=== PATIENT | female | born 1990 | race Caucasian/White ===

== ENCOUNTER 2023-04-04 20:57 | Outpatient (REF) | payer OTHER, SELFPAY ==
[2023-04-09 15:09] LABS: Age Gdln ACOG Testing Note (.); HPV Aptima Negative (Negative); IGP, Aptima HPV, rfx 16/18,45 Note (.)
== END 2023-04-04 20:58 | disposition home or self-care (01) ==
LOC: LAB 20:57
PROVIDERS: PCP Family Medicine; Visit Provider Obstetrics & Gynecology
DX: Z01.419 Encounter for gynecological examination (general) (routine) without abnormal findings (principal)
CPT/HCPCS: 87624; G0145

== ENCOUNTER 2023-10-22 22:15 | Emergency (ER) | payer OTHER, SELFPAY ==
--- OUTSIDE RECORDS SUMMARY | 2023-10-22 22:43 | XMS_ITS | CCD ---
Author Organization [facility] Care Team Providers Care Stripper Opaquer Name Role Phone PHYSICIAN, DEFAULT Unavailable Unavailable PHYSICIAN, DEFAULT Unavailable Unavailable MD Lewis CAMACHO Attending Unavailable MD Lewis CAMACHO Attending Unavailable MD Lewis CAMACHO Attending Unavailable MD Lewis CAMACHO Attending Unavailable KARASIK, DR SALDAÑA Procedure Practitioner Unava ilable ADRIANNA, DR SANTIAGO Consulting Unavailable NADERER, DR STANLEY A Primary Care Unavailable KARASIK, DR SALDAÑA Attending Unavailable KARASIK, DR SALDAÑA Admitting Unavailable KARASIK, DR SALDAÑA Consulting Unavailable MADISON, DR BARAKAT Consulting Unavailable CAMACHO, DR SANTIAGO Procedure Practitioner CAMILO [place] Consulting Unavailable CHRISTINE, KORTNEY Consulting Unavailable ADRIANNA, DR SANTIAGO Attending Unavailable CAMACHO, DR SANTIAGO Admitting Unavailable NADERER, DR STANLEY A Primary Care Unavailable KARASIK, DR SALDAÑA Consulting Unavailable NADERER, DR STANLEY A Primary Care Unavailable KARASIK, DR SALDAÑA Attending Unavailable KARASIK, DR SALDAÑA Admitting Unavailable CHRISTINE, KORTNEY Consulting Unavailable CAMACHO, DR SANTIAGO Consulting Unavailable NADERER, DR STANLEY A Primary Care Unavailable CAMACHO, DR SANTIAGO Attending Unavailable CAMACHO, DR SANTIAGO Admitting Unavailable AGUBOSIMTOÑO Consulting Unavailable DORKOSKIESTIVEN Consulting Unavailable NADERER, DR STANLEY A Primary Care Unavailable CAMACHO, DR SANTIAGO Attending Unavailable CAMACHO, DR SANTIAGO Admitting Unavailable KARASIK, DR SALDAÑA Consulting Unavailable NADERER, DR STANLEY A Primary Care Unavailable KARASIK, DR SALDAÑA Attending Unavailable KARASIK, DR SALDAÑA Admitting Unavailable NADERER, DR STANLEY A Primary Care Unavailable KARASIK, DR SALDAÑA Attending Unavailable KARASIK, DR SALDAÑA Admitting Unavailable NADERER, DR STANLEY A Primary Care Unavailable KARASIK, DR SALDAÑA Attending Unavailable KARASIK, DR SALDAÑA Admitting Unavailable ADRIANNA, DR SANTIAGO Consulting Unavailable NADERER, DR LIZETH Cordon Primary Care Unavailable CAMACHO, DR SANTIAGO Attending Unavailable CAMACHO, DR SANTIAGO Admitting Unavailable CAMACHO, DR SANTIAGO Consulting Unavailable NADERER, DR LIZETH Cordon Primary Care Unavailable CAMACHO, DR SANTIAGO Attending Unavailable CAMACHO, DR SANTIAGO Admitting Unavailable Zieber, DR Gill Consulting Unavailable Zieber, DR Gill Consulting Unavailable NADERER, DR LIZETH Cordon Primary Care Unavailable NADERER, DR LIZETH Cordon Attending Unavailable NADERER, DR LIZETH Cordon Admitting Unavailable NADERER, DR LIZETH Cordon Consulting Unavailable MISC, DR DEVRIES Consulting Unavailable NADERER, DR LIZETH Cordon Primary Care Unavailable MISC, DR DEVRIES Attending Unavailable MISC, DR DEVRIES Admitting Unavailable KARASIBryce, DR SALDAÑA Consulting Unavailable NADERER, DR LIZETH Cordon Primary Care Unavailable KARASIK, DR SALDAÑA Attending Unavailable KARASIK, DR SALDAÑA Admitting Unavailable MADISON, ROSHNI Attending Unavailable NADERER, LIZETH Attending Unavailable NADERER, LIZETH Attending Unavailable Allergies Allergy Classification Reported Allergen(s) Allergy Type Date of Onset Reaction(s) Facility (1 source) No Known Medication Allergies; Translations: [No Known Medication Allergies] Propensity to adverse reactions (disorder) [facility] Repository Problems Active Problems Problem Classification Problem Date Documented Da te Episodic/Chronic Abdominal pain (9 sources) Unspecified abdominal pain; Translations: [Pelvic and perineal pain] Onset: 02-14-2021 Episodic Anxiety disorders (1 source) Anxiety disorder, unspecified; Translations: [ANXIETY DISORDER UNSPECIFIED] Onset: 05-02-2021 Chronic Esophageal disorders (1 source) Gastro-esophageal reflux disease without esophagitis; Translations: [GERD WITHOUT ESOPHAGITIS] Onset: 05-02-2021 Chronic Genitourinary congenital anomalies (1 source) Congenital occlusion of ureter, unspecified; Translations: [CONGENITAL OCCLUSION URETER UNS] Onset: 05-02-2021 Chronic Genitourinary symptoms and ill-defined conditions (1 source) Encounter for fitting and adjustment of urinary device; Translations: [END FITTING AND ADJUST URINARY DEVICE] Onset: 06-07-2021 Chronic Mood disorders (1 source) Mood disorders; Translations: [DEPRESSION UNSPECIFIED] Onset: 05-02-2021 Other aftercare (1 source) Other snf (current) drug therapy; Translations: [OTH MCC CURRENT DRUG THERAPY] Onset: 12-16-2021 Episodic Other connective tissue disease (4 sources) Pain in right finger(s); Translations: [PAIN IN RIGHT FINGERS] Onset: 12-15-2021 Episodic Other diseases of kidney and ureters (5 sources) Crossing 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; Translations: [CROSSING VES STRICT URETER W/O HN] Onset: 06-02-2021 Episodic Other female genital disorders (4 sources) Unspecified dyspareunia; Translations: [UNSPECIFIED DYSPAREUNIA] Onset: 04-04-2021 Chronic Other nervous system disorders (1 source) Other chronic pain; Translations: [OTHER CHRONIC PAIN] Onset: 05-02-2021 Chronic Other nutritional; endocrine; and metabolic disorders (1 source) Body mass index (BMI) 40.0-44.9, adult; Translations: [BODY MASS INDEX BMI 40.0-44.9 ADULT] Onset: 05-02-2021 Chronic Other nutritional; endocrine; and metabolic disorders (1 source) Morbid (severe) obesity due to excess calories; Translations: [MORBID SEVERE OBES D/T EXCESS NITO] Onset: 05-02-2021 Chronic Unclassified (1 source) CONTACT W/AND (SUSP) EXPOS COVID-19; Translations: [CONTACT W/AND (SUSP) EXPOS COVID-19] Onset: 05-31-2021 Unclassified (1 source) PERSONAL HISTORY OF COVID-19; Translations: [PERSONAL HISTORY OF COVID-19] Onset: 05-02-2021 Past or Other Problems Problem Classification Problem Date Documented Date Episodic/Chronic Genitourinary symptoms and ill-defined conditions (1 source) Nocturia; Translations: [NOCTURIA] Onset: 06-07-2021 Episodic Immunizations and screening for infectious disease (1 source) Encounter for screening for human papillomavirus (HPV); Translations: [ENC SCREENING HUMAN PAPILLOMAVIRUS] Onset: 10-29-2021 Episodic Inflammatory diseases of female pelvic organs (1 source) Female pelvic peritoneal adhesions (postinfective); Translations: [FE PELV PERITON ADHES POSTINFECTIVE] Onset: 05-02-2021 Episodic Other screening for suspected conditions (not mental disorders or infectious disease) (4 sources) Encounter for screening for malignant neoplasm of cervix; Translations: [ENC SCREENING MALIG NEOPLASM CERV] Onset: 10-26-2021 Episodic Residual codes; unclassified (1 source) Acquired absence of other specified parts of digestive tract; Translations: [ACQ ABSENCE OTH PART DIGESTV TRACT] Onset: 06-07-2021 Episodic Residual codes; unclassified (1 source) Insomnia, unspecified; Translations: [INSOMNIA UNSPECIFIED] Onset: 05-02-2021 Episodic Residual codes; unclassified (1 source) Acquired absence of both cervix and uterus; Translations: [ACQUIRED ABSENCE BOTH CERVIX AND UTERUS] Onset: 05-02-2021 Episodic Results Test Name Value Interpretation Reference Range Facility RAD - MISCon 01-29-2022 RAD - MISC [id number] .[id number]:127 Normal [facility] 2022 Lab Reports [id number] .[id number]:127 Normal [facility] CREATININEon 01-18-2022 Creatinine [Mass/Vol] 1.19 mg/dL Critically high 0.55-1.02 [facility] Comment on above: Performed By: #### C VDTBH #### [facility] [address] [address] [address] Lukas Foote EGFR-AF BANGLADESHI >60 Normal >=60 [facility] Comment on above: Performed By: #### C VDTBH #### [facility] [address] [address] [address] Lukas Foote EGFR-NON AF BANGLADESHI 52 mL/min/1.73m2 Critically low >=60 [facility] Comment on above: Performed By: #### C VDTBH #### [facility] [address] [address] [address] Lukas Foote XR IVPon 01-18-2022 XR IVP EXAMINATION: XR IVP HISTORY: Flank pain ; left flank pain, bladder pain for 3 months (no pain while urinating) COMPARISON: No relevant comparison available. TECHNIQUE: After obtaining patient consent a film processor image was obtained followed by injection of 100cc of Omnipaque 300 IV contrast. Immediate nephrographic images were obtained. Corticomedullary and urographic phase images were obtained at 5, 10, 15 and 20 minutes. 15 minute oblique images were also obtained. FINDINGS: KIDNEY/URETER - RIGHT: No visible calcifications. KIDNEY/URETER - LEFT: No visible calcifications. PELVIS: No visible ureteral calcifications. Any visible calcifications favor phleboliths. NEPHROGRAPHIC PHASE: Normal, symmetric size, contour, and orientation. Normal and symmetric time of contrast uptake. CORTICOMEDULLARY: No mass or abnormal appearing medulla, pyramids, or collecting system. UROGRAPHIC PHASE: Normal caliber, course, and number of ureters. BLADDER: Normal size and contour, but incomplete emptying during voiding. BOWEL: No abnormal dilation or deviation. BONES: No acute abnormality. OTHER: Negative. No abnormal gaseous collections. IMPRESSION: 1. Unremarkable kidneys and ureters. 2. Small to moderate amount of residual contrast within the bladder on post void image suggesting incomplete emptying. Electronically authenticated by: JAIRO PIERCE Date: 2022-01-18 09:36 Normal [facility] VIT D 1 25 DIHYDROXYon 12-18 Calcitriol(1,25 di-OH Vit D) 46.5 pg/mL Normal 24.8-81.5 [facility] Comment on above: Result Comment: Pl ease note reference interval change Performed By: #### V [id number] #### [facility] [address] [place] [address] Dr. Lukas Foote LITHIUMon 12-16-2021 [place] (Eskalith(R)), Serum 0.3 mmol/L Critically low 0.5-1.2 [facility] Comment on above: Result Comment: Plas ma concentration of 0.5 - 0.8 mmol/L are advised for long-term use; concentrations of up to 1.2 mmol/L may be necessary during acute treatment. Detection Limit = 0.1 <0.1 indicates None Detected Performed By: #### C VDTBH #### [facility] [address] [place] [address] Dr. Lukas Foote PROLACTINon 12-16-2021 Prolactin 8.2 ng/mL Normal 4.8-23.3 [facility] Comment on above: Performed By: #### P ROLAC #### [facility] [address] [place] [address] Dr. Lukas Foote CBC AUTO DIFFon 12-15-2021 BASO # 0.0 103/ul Normal 0.0-0.1 [facility] Comment on above: Performed By: #### C VDTBH #### [facility] [address] [place] [address] Dr. Lukas Foote Basophils/100 WBC (Bld) 0.6 % Normal 0.2-2.0 [facility] Comment on above: Performed By: #### C VDTBH #### [facility] [address] [place] [address] Dr. Lukas Foote EO # 0.1 103/ul Normal 0.0-0.7 [facility] Comment on above: Performed By: #### C VDTBH #### [facility] [address] [place] [address] Dr. Lukas Foote Eosinophils/100 WBC (Bld) 1.8 % Normal 0.9-7.0 [facility] Comment on above: Performed By: #### C VDTBH #### [facility] [address] [place] [address] Dr. Lukas Foote Erythrocyte distribution width (RBC) [Ratio] 12.5 % Normal 11.0-15.0 [facility] Comment on above: Performed By: #### C VDTBH #### [facility] [address] [place] [address] Dr. Lukas Foote Hematocrit (Bld) [Volume fraction] 40.3 % Normal 36.0-48.0 [facility] Comment on above: Performed By: #### C VDTBH #### [facility] [address] [place] [address] Dr. Lukas Foote Hemoglobin (Bld) [Mass/Vol] 12.9 g/dL Normal 12.0-16.0 [facility] Comment on above: Performed By: #### C VDTBH #### [facility] [address] [place] [address] Dr. Lukas Foote IG # 0.03 10e3/ul Normal 0.00-0.03 [facility] Comment on above: Performed By: #### C VDTBH #### [facility] [address] [place] [address] Dr. Lukas Foote IG % 0.4 % Normal 0.0-0.5 [facility] Comment on above: Performed By: #### C VDTBH #### [facility] [address] [place] [address] Dr. Lukas Foote LYMPH # 1.6 103/ul Normal 1.2-3.8 [facility] Comment on above: Performed By: #### C VDTBH #### [facility] [address] [place] [address] Dr. Lukas Foote Lymphocytes/100 WBC (Bld) 24.1 % Normal 20.5-60.0 [facility] Comment on above: Performed By: #### C VDTBH #### [facility] [address] [place] [address] Dr. Lukas Foote MANUAL DIFF REQ NO Normal [facility] Comment on above: Performed By: #### C VDTBH #### [facility] [address] [place] [address] Dr. Lukas Foote MCH (RBC) [Entitic mass] 29.7 pg Normal 26.7-34.0 [facility] Comment on above: Performed By: #### C VDTBH #### [facility] [address] [place] [address] Dr. Lukas Foote MCHC (RBC) [Mass/Vol] 32.0 g/dL Normal 29.9-35.2 [facility] Comment on above: Performed By: #### C VDTBH #### [facility] [address] [place] [address] Dr. Lukas Foote MCV (RBC) [Entitic vol] 92.9 fL Normal 81.0-99.0 [facility] Comment on above: Performed By: #### C VDTBH #### [facility] [address] [place] [address] Dr. Lukas Foote MONO # 0.4 103/ul Normal 0.3-0.8 [facility] Comment on above: Performed By: #### C VDTBH #### [facility] [address] [place] [address] Dr. Lukas Foote Monocytes/100 WBC (Bld) 6.2 % Normal 1.7-12.0 [facility] Comment on above: Performed By: #### C VDTBH #### [facility] [address] [place] [address] Dr. Lukas Foote NEUT # 4.5 103/ul Normal 1.4-6.5 [facility] Comment on above: Performed By: #### C VDTBH #### [facility] [address] [place] [address] Dr. Lukas Foote Neutrophils/100 WBC (Bld) 66.9 % Normal 43.0-75.0 [facility] Comment on above: Performed By: #### C VDTBH #### [facility] [address] [place] [address] Dr. Lukas Foote Platelet mean volume (Bld) [Entitic vol] 11.4 fL Normal 9.5-13.5 [facility] Comment on above: Performed By: #### C VDTBH #### [facility] [address] [place] [address] Dr. Lukas Foote PLT 245 103/ul Normal 150-450 [facility] Comment on above: Performed By: #### C VDTBH #### [facility] [address] [place] [address] Dr. Lukas Foote RBC 4.34 106/ul Normal 4.20-5.40 [facility] Comment on above: Performed By: #### C VDTBH #### [facility] [address] [place] [address] Dr. Lukas Foote WBC 6.8 103/ul Normal 4.0-11.0 [facility] Comment on above: Performed By: #### C VDTBH #### [facility] [address] [place] [address] Dr. Lukas Foote GLYCOHEMOGLOBIN A1Con 2021 ADA RECOMMENDATION SEE BELOW Normal [facility] Comment on above: Result Comment: ADA RECOMMENDED LIMIT 4.0 - 6.0 ADA THERAPEUTIC TARGET < 7.0 ACTION SUGGESTED > 7.0 Performed By: #### C VDTBH #### [facility] [address] [address] [address] Lukas Foote Glucose [Mass/Vol] 94 mg/dL Normal [facility] Comment on above: Performed By: #### C VDTBH #### [facility] [address] [address] [address] Lukas Foote HbA1c (Bld) [Mass fraction] 4.9 % Normal 4.5-6.2 [facility] Comment on above: Performed By: #### C VDTBH #### [facility] [address] [place] [address] Dr. Lukas Foote LIPID PROFILEon 12-15-2021 CHOL-HDL RATIO NORM SEE BELOW Normal [facility] Comment on above: Result Comment: 3.3 - 4.4 LOW RISK 4.4 - 7.1 AVERAGE RISK 7.1 - 11.0 MODERATE RISK >11.0 HIGH RISK Performed By: #### L IPID, TSH, CMP #### [facility] [address] [place] [address] Dr. Lukas Foote Cholesterol [Mass/Vol] 210 mg/dL Critically high <=200 [facility] Comment on above: Performed By: #### L IPID, TSH, CMP #### [facility] [address] [place] [address] Dr. Lukas Foote Cholesterol in HDL [Mass/Vol] 52 mg/dL Normal 40-60 [facility] Comment on above: Performed By: #### L IPID, TSH, CMP #### [facility] [address] [address] [address] Lukas Foote Cholesterol in LDL [Mass/Vol] 115.8 mg/dL Normal [facility] Comment on above: Performed By: #### L IPID, TSH, CMP #### [facility] [address] [address] [address] Lukas Foote Cholesterol.total/Cho lesterol in HDL [Mass ratio] 4.0 {ratio} Normal [facility] Comment on above: Performed By: #### L IPID, TSH, CMP #### [facility] [address] [address] [address] Lukas Foote HDL NORMAL > or = 60 mg/dl - LO W CARDIOVASCULAR RISK <40 mg/dl - HIGH CARDIOVASCULAR RISK Normal [facility] Comment on above: Performed By: #### L IPID, TSH, CMP #### [facility] [address] [address] [address] Lukas Foote LDL CALC NORMAL SEE BELOW Normal [facility] Comment on above: Result Comment: <100 mg/dl OPTIMAL 100 - 129 mg/dl NEAR OR ABOVE OPTIMAL 130 - 159 mg/dl BORDERLINE HIGH 160 - 189 mg/dl HIGH >190 mg/dl VERY HIGH Performed By: #### L IPID, TSH, CMP #### [facility] [address] [address] [address] Lukas Foote Triglyceride [Mass/Vol] 211 mg/dL Critically high <=150 [facility] Comment on above: Performed By: #### L IPID, TSH, CMP #### [facility] [address] [address] [address] Lukas Foote VLDL CALC 42.2 mg/dL Normal [facility] Comment on above: Performed By: #### L IPID, TSH, CMP #### [facility] [address] [address] [address] Lukas Foote PROF 14(COMP METB)on 022 Albumin [Mass/Vol] 3.8 g/dL Normal 3.4-5.0 [facility] Comment on above: Performed By: #### L IPID, TSH, CMP #### [facility] [address] [address] [address] Lukas Foote Albumin/Globulin [Mass ratio] 1.1 {ratio} Normal [facility] Comment on above: Performed By: #### L IPID, TSH, CMP #### [facility] [address] [address] [address] Lukas Foote ALP [Catalytic activity/Vol] 94 U/L Normal 46-116 [facility] Comment on above: Performed By: #### L IPID, TSH, CMP #### [facility] [address] [address] [address] Lukas Foote ALT [Catalytic activity/Vol] 21 U/L Normal 14-59 [facility] Comment on above: Performed By: #### L IPID, TSH, CMP #### [facility] [address] [address] [address] Lukas Foote Anion gap [Moles/Vol] 12.9 mmol/L Normal [facility] Comment on above: Performed By: #### L IPID, TSH, CMP #### [facility] [address] [address] [address] Lukas Foote AST [Catalytic activity/Vol] 13 U/L Critically low 15-37 [facility] Comment on above: Performed By: #### L IPID, TSH, CMP #### [facility] [address] [place] [address] Dr. Lukas Foote Bilirubin [Mass/Vol] 0.2 mg/dL Normal 0.2-1.0 [facility] Comment on above: Performed By: #### L IPID, TSH, CMP #### [facility] [address] [address] [address] Lukas Foote Calcium [Mass/Vol] 9.0 mg/dL Normal 8.5-10.1 [facility] Comment on above: Performed By: #### L IPID, TSH, CMP #### [facility] [address] [address] [address] Lukas Foote Chloride [Moles/Vol] 105 mmol/L Normal 98-107 [facility] Comment on above: Performed By: #### L IPID, TSH, CMP #### [facility] [address] [address] [address] Lukas Foote CO2 [Moles/Vol] 25.9 mmol/L Normal 21.0-32.0 [facility] Comment on above: Performed By: #### L IPID, TSH, CMP #### [facility] [address] [address] [address] Lukas Foote Creatinine [Mass/Vol] 1.17 mg/dL Critically high 0.55-1.02 [facility] Comment on above: Performed By: #### L IPID, TSH, CMP #### [facility] [address] [place] [address] Dr. Lukas Foote EGFR-AF BANGLADESHI >60 Normal >=60 [facility] Comment on above: Performed By: #### L IPID, TSH, CMP #### [facility] [address] [place] [address] Dr. Lukas Foote EGFR-NON AF BANGLADESHI 53 mL/min/1.73m2 Critically low >=60 [facility] Comment on above: Performed By: #### L IPID, TSH, CMP #### [facility] [address] [place] [address] Dr. Lukas Foote Globulin (S) [Mass/Vol] 3.6 g/dL Normal [facility] Comment on above: Performed By: #### L IPID, TSH, CMP #### [facility] [address] [place] [address] Dr. Lukas Foote Glucose [Mass/Vol] 123 mg/dL Critically high 74-106 [facility] Comment on above: Performed By: #### L IPID, TSH, CMP #### [facility] [address] [place] [address] Dr. Lukas Foote Potassium [Moles/Vol] 3.8 mmol/L Normal 3.5-5.1 [facility] Comment on above: Performed By: #### L IPID, TSH, CMP #### [facility] [address] [place] [address] Dr. Lukas Foote Protein [Mass/Vol] 7.4 g/dL Normal 6.4-8.2 [facility] Comment on above: Performed By: #### L IPID, TSH, CMP #### [facility] [address] [place] [address] Dr. Lukas Foote Sodium [Moles/Vol] 140 mmol/L Normal 136-145 [facility] Comment on above: Performed By: #### L IPID, TSH, CMP #### [facility] [address] [address] [address] Lukas Foote Urea nitrogen [Mass/Vol] 14.0 mg/dL Normal 7.0-18.0 [facility] Comment on above: Performed By: #### L IPID, TSH, CMP #### [facility] [address] [address] [address] Lukas Foote Urea nitrogen/Creatinine [Mass ratio] 12.0 mg/mg Normal [facility] Comment on above: Performed By: #### L IPID, TSH, CMP #### [facility] [address] [address] [address] Lukas Foote TSHon 12-15-2021 TSH 2.488 uIU/mL Normal 0.358-3.740 [facility] Comment on above: Performed By: #### L IPID, TSH, CMP #### [facility] [address] [place] [address] Dr. Lukas Foote PAP ACOG PANEL 2: 30 to 65on 11-01-2021 . . Normal [facility] Comment on above: Result Comment: Perf ormed at: [facility] Performed By: #### [id number] #### [facility] [address] [place] [address] Dr. Lukas Foote Age Gdln ACOG Testing - Normal [facility] Comment on above: Performed By: #### [id number] #### [facility] [address] [place] [address] Dr. Lukas Foote DIAGNOSIS: Comment Normal [facility] Comment on above: Result Comment: NEGA TIVE FOR INTRAEPITHELIAL LESION OR MALIGNANCY. Performed at: [facility] Performed By: #### [id number] #### [facility] [address] [place] [address] Dr. Lukas Foote HPV Aptima Negative Normal Negative [facility] Comment on above: Result Comment: This nucleic acid amplification test detects fourteen high-risk HPV types (16,18,31,33,35,39,45,51,52,56,58,59,66,68) without differentiation. Performed at: =G Performed By: #### [id number] #### [facility] [address] [place] [address] Dr. Lukas Foote Methodology: Comment Normal [facility] Comment on above: Result Comment: This liquid based ThinPrep(R) pap test was screened with the use of an image guided system. Performed at: WB Performed By: #### [id number] #### [facility] [address] [place] [address] Dr. Lukas Foote Note: Comment Normal [facility] Comment on above: Result Comment: The Pap smear is a screening test designed to aid in the detection of premalignant and malignant conditions of the uterine cervix. It is not a diagnostic procedure and should not be used as the sole means of detecting cervical cancer. Both false-positive and false-negative reports do occur. . Performed at: WB Performed By: #### [id number] #### [facility] [address] [place] [address] Dr. Lukas Foote Performed by: Comment Normal [facility] Comment on above: Result Comment: Darin Valencia, Single Needle Tufting Machine Operator (ASCP) Performed at: WB Performed By: #### [id number] #### [facility] [address] [place] [address] Dr. Lukas Foote Specimen adequacy: Comment Normal [facility] Comment on above: Result Comment: Sati sfactory for evaluation. No endocervical component is identified. Performed at: WB Performed By: #### [id number] #### [facility] [address] [place] [address] Dr. Lukas Foote Operative Reporton 2 Operative Report [id number] .00CD:127 Normal [facility] Lab Reportson 05-30-2021 Lab Reports [id number] .[id number]:127 Normal [facility] Covid-19 PCR (CVDTB)on SARS-CoV-2 (COVID-19) RNA JAYNA+probe Ql (Unsp spec) Not detected Normal NOT DETECTED [facility] Comment on above: Result Comment: This test is not yet approved or cleared by the [place] FDA. When there are no FDA-approved or cleared tests available, and other criteria are met, FDA can make tests available under an emergency access mechanism called an Emergency Use Authorization (EUA). The EUA for this test is supported by the Card Punching Machine Operator of Health and Human Service's (HHS's) declaration that circumstances exist to justify the emergency use of in vitro diagnostics for the detection and/or diagnosis of the virus that causes COVID-19. This EUA will remain in effect (meaning this test can be used) for the duration of the COVID-19 declaration justifying emergency of IVDs, unless it is terminated or revoked by FDA (after which the test may no longer be used). When diagnostic testing is negative, the possibility of a false negative should be considered in the context of a patient's recent exposures and the presence of clinical signs and symptoms consistent with SARS-CoV-2. Performed By: #### C [facility] #### [facility] [address] [place] [address] Dr. Lukas Foote Physician Orderon 05-19-2021 Physician Order [id number] .00CD:127 [facility] Formson 05-12-2021 Forms [id number] .00CD:127 [facility] Ambulatory Visit Summaryon 0 05-09-2021 Ambulatory Visit Summary LADAN JOHNSON :1990 Visit Date:05/09/2021 Ambulatory Visit Instructions Your Diagnosis Nocturia Ureteral stricture Foreign body in bladder Your Care Team Attending Physician - ADRIANNA JEAN, Lewis Chandler Primary Care Physician - LIZETH MCGRAW MD This Is Your Medications List Contact prescribing physician if questions or concerns clonazepam (clonazepam 1 mg Tab) lamotrigine (Lamictal 200 mg Tab) lithium (lithium 450 mg oral tablet, extended release) metoprolol (Toprol XL 25 mg Tab-ER) omeprazole (omeprazole 40 mg Cap-DR) prazosin (prazosin 1 mg Cap) quetiapine (Seroquel 400 mg oral tablet) quetiapine (quetiapine 400 mg oral tablet) topiramate (Topamax 100 mg Tab) Procedures Performed Cystoscopy (04/04/2021), Appendectomy, Cholecystectomy, H/O: tubal ligation, History of tonsillectomy, Hysterectomy. Discharge Vitals Heart Rate (Peripheral) 77 Blood Pressure 136/86 Height 162 cm Height 162.0 cm Weight 103 kg Weight 103.0 kg BMI 39.25 What to do next You Need to Schedule the Following Appointments Follow Up with ADRIANNA JEAN, MARILYN Kelley When: Why: Will schedule Cysto, Ureter, pos. UD and stent removal Where: [facility] [address], [place] [address]- [phone] Medications What How Much When Why Instructions Unchanged clonazepam (clonazepam 1 mg Tab) 1 Tablets By Mouth 2 times a day Anxiety, generalized Contact prescribing physician if questions or concerns Unchanged lamotrigine (Lamictal 200 mg Tab) 1 Tablets By Mouth Every day Contact prescribing physician if questions or concerns Unchanged lithium (lithium 450 mg oral tablet, extended release) See instructions 2 tabs po am and 1 tab po pm Contact prescribing physician if questions or concerns Unchanged metoprolol (Toprol XL 25 mg Tab-ER) Contact prescribing physician if questions or concerns Unchanged omeprazole (omeprazole 40 mg Cap-DR) By Mouth Every day Contact prescribing physician if questions or concerns Unchanged prazosin (prazosin 1 mg Cap) 4 Capsules By Mouth At bedtime for a total of 4mg Contact prescribing physician if questions or concerns Unchanged quetiapine (quetiapine 400 mg oral tablet) 2 Tablets By Mouth At bedtime Contact prescribing physician if questions or concerns Unchanged quetiapine (Seroquel 400 mg oral tablet) By Mouth 2 times a day Contact prescribing physician if questions or concerns Unchanged topiramate (Topamax 100 mg Tab) 1 Tablets By Mouth 2 times a day Contact prescribing physician if questions or concerns Allergies No Known Medication Allergies Problems Ongoing - Any problem that you are currently receiving treatment for. Bipolar 1 disorder, mixed, mild Depression Kidney stone Post-traumatic stress disorder, chronic [employer] Urinary Frequency, Adult Urinary frequency means urinating more often than usual. You may urinate every 1?2 hours even though you drink a normal amount of fluid and do not have a bladder infection or condition. Although you urinate more often than normal, the total amount of urine produced in a day is normal. With urinary frequency, you may have an urgent need to urinate often. The stress and anxiety of needing to find a bathroom quickly can make this urge worse. This condition may go away on its own or you may need treatment at home. Home treatment may include bladder training, exercises, taking medicines, or making changes to your diet. Follow these instructions at home: Bladder health ? Keep a bladder diary if told by your health care provider. Keep track of: ? What you eat and drink. ? How often you urinate. ? How much you urinate. ? Follow a bladder training program if told by your health care provider. This may include: ? Learning to delay going to the bathroom. ? Double urinating (voiding). This helps if you are not completely emptying your bladder. ? Scheduled voiding. ? Do Kegel exercises as told by your health care provider. Kegel exercises strengthen the muscles that help control urination, which may help the condition. Eating and drinking ? If told by your health care provider, make diet changes, such as: ? Avoiding caffeine. ? Drinking fewer fluids, especially alcohol. ? Not drinking in the evening. ? Avoiding foods or drinks that may irritate the bladder. These include coffee, tea, soda, artificial sweeteners, citrus, tomato-based foods, and chocolate. ? Eating foods that help prevent or ease constipation. Constipation can make this condition worse. Your health care provider may recommend that you: ? Drink enough fluid to keep your urine pale yellow. ? Take rakl-xye-trhkqpk or prescription medicines. ? Eat foods that are high in fiber, such as beans, whole grains, and fresh fruits and vegetables. ? Limit foods that are high in fat and processed sugars, such as fried or sweet fo (more content not included)... Normal [facility] Patient Educationon 05-09-19 22 Patient Education Urology Urinary Frequency, Adult Urinary frequency means urinating more often than usual. You may urinate every 1?2 hours even though you drink a normal amount of fluid and do not have a bladder infection or condition. Although you urinate more often than normal, the total amount of urine produced in a day is normal. With urinary frequency, you may have an urgent need to urinate often. The stress and anxiety of needing to find a bathroom quickly can make this urge worse. This condition may go away on its own or you may need treatment at home. Home treatment may include bladder training, exercises, taking medicines, or making changes to your diet. Follow these instructions at home: Bladder health ? Keep a bladder diary if told by your health care provider. Keep track of: ? What you eat and drink. ? How often you urinate. ? How much you urinate. ? Follow a bladder training program if told by your health care provider. This may include: ? Learning to delay going to the bathroom. ? Double urinating (voiding). This helps if you are not completely emptying your bladder. ? Scheduled voiding. ? Do Kegel exercises as told by your health care provider. Kegel exercises strengthen the muscles that help control urination, which may help the condition. Eating and drinking ? If told by your health care provider, make diet changes, such as: ? Avoiding caffeine. ? Drinking fewer fluids, especially alcohol. ? Not drinking in the evening. ? Avoiding foods or drinks that may irritate the bladder. These include coffee, tea, soda, artificial sweeteners, citrus, tomato-based foods, and chocolate. ? Eating foods that help prevent or ease constipation. Constipation can make this condition worse. Your health care provider may recommend that you: ? Drink enough fluid to keep your urine pale yellow. ? Take wabl-kps-zohrvgy or prescription medicines. ? Eat foods that are high in fiber, such as beans, whole grains, and fresh fruits and vegetables. ? Limit foods that are high in fat and processed sugars, such as fried or sweet foods. General instructions ? Take mwhg-ubm-ctjfdra and prescription medicines only as told by your health care provider. ? Keep all follow-up visits as told by your health care provider. This is important. Contact a health care provider if: ? You start urinating more often. ? You feel pain or irritation when you urinate. ? You notice blood in your urine. ? Your urine looks cloudy. ? You develop a fever. ? You begin vomiting. Get help right away if: ? You are unable to urinate. Summary ? Urinary frequency means urinating more often than usual. With urinary frequency, you may urinate every 1?2 hours even though you drink a normal amount of fluid and do not have a bladder infection or other bladder condition. ? Your health care provider may recommend that you keep a bladder diary, follow a bladder training program, or make dietary changes. ? If told by your health care provider, do Kegel exercises to strengthen the muscles that help control urination. ? Take lddp-lou-haxydko and prescription medicines only as told by your health care provider. ? Contact a health care provider if your symptoms do not improve or get worse. This information is not intended to replace advice given to you by your health care provider. Make sure you discuss any questions you have with your health care provider. Document Released: 01/06/2010 Document Revised: 09/19/2018 Document Reviewed: 09/19/2018 [employer] Patient Education ? 2019 [employer]. Normal [facility] Office/Clinic Noteon 05-09-2021 Urology Office/Clinic Note Chief Complaint Pt here for 1 month PO stent placement HPI Staff Ladan is a 31 y.o. female new patient here for 1 month follow up to stent placement. Previous Dx: Kidney stone. S/P cysto/LT retrograde/LT UD/LT ureteral stent done on 04/04/21. Dysuria: denies Incomplete bladder emptying: denies Hematuria: denies Frequency: yes Urgency: denies Nocturia: 1x a night Stream: steady stream Leaking: denies Post void dripping: denies Wearing pads/ Depends: denies Urge incontinence: denies Stress incontinence: denies Incontinence without Sensory Awareness: denies Abdominal pain: denies Flank pain: LT flank pain Sexual complaints: _ History of Present Illness I have reviewed and verified the staff HPI to be accurate for this encounter. Review of Systems PHQ Score Initial Depression Screen Score: 0 ROS - Provider Constitutional: denies weight loss, denies hot flashes. Eyes: denies eye problems. Gastrointestinal: denies nausea, denies vomiting. Cardiovascular: denies chest pain or angina. Integumentary: no dryness Musculoskeletal: denies musculoskeletal symptoms. ENMT: denies otolaryngeal symptoms. Respiratory: no shortness of breath. Heme/Lymph: denies easy bleeding tendency, denies easy bruising tendency. Psychiatric: no confusion, no anxiety. Genitourinary: denies dysuria, denies hematuria, denies discharge, denies urinary frequency, denies urinary hesitancy, denies nocturia, denies incontinence, denies genital sores, denies decreased libido, and denies erectile dysfunction. Physical Exam Vitals & Measurements HR: 77(Peripheral) BP: 136/86 HT: 162 cm HT: 162.0 cm WT: 103 kg WT: 103.0 kg BMI: 39.25 General Appearance: alert , no acute distress, well nourished, well developed female. Head: normocephalic . Eyes: normal orbit and globe. ENMT: normal examination of external ears. Chest: Lungs CTA, respirations non labored . Cardiovascular: regular rate and rhythm. Abdomen: soft, non distended, no tenderness, no mass or organomegaly, no hernia. Genitourinary: bladder nonpalpable, no flank tenderness. Lymph Nodes: unremarkable palpation of the cervical area. Skin: warm, dry, no bruising. Psychiatric: cooperative, affect appropriate for age, normal judgement, euthymic mood. Assessment/Plan 1. Nocturia (R35.1: Nocturia) Mild, 1 time per night 2. Ureteral stricture (N13.5: Crossing 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) Severe left distal ureteral stenosis, S/p Left stent placement done 04/04/21 at the time of Dr. Belcher surgery for Laparotomy and bilateral salpingo-oophorectomy . Patient states stent is not bothering her. Patient needs to have Cysto, left ureteroscopy, pos. dilation, pos. left stent removal under general. 3. Foreign body in bladder (T19.1XXA: Foreign body in bladder, initial encounter) S/p left stent placement Patient is currently not taking any stent medications and is doing well. She will sometimes feel a discomfort in her left kidney with urination. I have reviewed the previous health history and record for this patient with Dr. Camacho. Will schedule Cysto, ureter, pos. stent removal Follow-up With When Contact Information ADRIANNA JEAN, Lewis Chandler, [facility] [address] [place] [address]- [phone] Additional Instructions: Will schedule Cysto, Ureter, pos. UD and stent removal Patient Education Urinary Frequency, Adult Neela Toribio, personally scribed for Dr. Camacho on 05/09/2021 13:47:28. . Documentation recorded by the adelsoibchapito batres, accurately reflects the services(s) I performed and decisions made by me. Authenticated by Dr. Camacho on 05/09/2021 13:51:13. Problem List/Past Medical History Ongoing Bipolar 1 disorder, mixed, mild Depression Kidney stone Post-traumatic stress disorder, chronic Historical No qualifying data Procedure/Surgical History Cystoscopy (04/04/2021), Appendectomy, Cholecystectomy, H/O: tubal ligation, History of tonsillectomy, Hysterectomy. Medications clonazepam 1 mg Tab, 1 mg= 1 tab(s), Oral, BID, 5 refills Lamictal 200 mg Tab, 200 mg= 1 tab(s), Oral, Daily, 5 refills lithium 450 mg oral tablet, extended release, See Instructions, 5 refills omeprazole 40 mg Cap-DR, Oral, Daily prazosin 1 mg Cap, 4 mg= 4 cap(s), Oral, Bedtime, 5 refills quetiapine 400 mg oral tablet, 800 mg= 2 tab(s), Oral, Bedtime, 5 refills Seroquel 400 mg oral tablet, Oral, BID Topamax 100 mg Tab, 100 mg= 1 tab(s), Oral, BID Toprol XL 25 mg Tab-ER, Not taking Allergies No Known Medication Allergies Social History Tobacco Never (less than 100 in lifetime) Tobacco Use:. Never Smokeless Tobacco Use:., 01/28/2020 Family History Drug addiction: Mother. Hypertension: Mother. Mood: Mother. Psychiatric: Mother. Suicide: Brother. Diagnostic Results Tests Reviewed: Reviewed op report [facility] Comment on above: Result Comment: Elec tronically Signed By: Lewis CAMACHO MD\.br\Date and Time Signed: 05/09/21 13:51 EST\.br\Electronically Co-Signed By: Neela Elisebr\Date and Time Co-Signed: 05/09/21 13:48 EST Consultation Noteon 04-07-19 Consultation Note [id number] 1.00CD:127 [facility] Insurance Correspondence Off iceon 04-07-2021 Insurance Correspondence Office [id number] .[id number]:127 [facility] Operative Reporton 2 Operative Report [id number] .[id number]:127 Normal [facility] BUNon 04-05-2021 Urea nitrogen [Mass/Vol] 15.0 mg/dL Normal 7.0-17.0 [facility] Comment on above: Performed By: #### C VIVIANE, BUN #### [facility] [address] [place] [address] Dr. Lukas Foote CBC AUTO DIFFon 04-05-2021 BASO # 0.0 103/ul Normal 0.0-0.1 [facility] Comment on above: Performed By: #### C VDTBH #### [facility] [address] [place] [address] Dr. Lukas Foote Basophils/100 WBC (Bld) 0.2 % Normal 0.2-2.0 [facility] Comment on above: Performed By: #### C VDTBH #### [facility] [address] [place] [address] Dr. Lukas Foote EO # 0.0 103/ul Normal 0.0-0.7 [facility] Comment on above: Performed By: #### C VDTBH #### [facility] [address] [place] [address] Dr. Lukas Foote Eosinophils/100 WBC (Bld) 0.1 % Critically low 0.9-7.0 [facility] Comment on above: Performed By: #### C VDTBH #### [facility] [address] [place] [address] Dr. Lukas Foote Erythrocyte distribution width (RBC) [Ratio] 12.8 % Normal 11.0-15.0 [facility] Comment on above: Performed By: #### C VDTBH #### [facility] [address] [place] [address] Dr. Lukas Foote Hematocrit (Bld) [Volume fraction] 36.6 % Normal 36.0-48.0 [facility] Comment on above: Performed By: #### C VDTBH #### [facility] [address] [address] [address] Lukas Foote Hemoglobin (Bld) [Mass/Vol] 12.0 g/dL Normal 12.0-16.0 [facility] Comment on above: Performed By: #### C VDTBH #### [facility] [address] [place] [address] Dr. Lukas Foote IG # 0.04 10e3/ul Critically high 0.00-0.03 [facility] Comment on above: Performed By: #### C VDTBH #### [facility] [address] [place] [address] Dr. Lukas Foote IG % 0.3 % Normal 0.0-0.5 [facility] Comment on above: Performed By: #### C VDTBH #### [facility] [address] [place] [address] Dr. Lukas Foote LYMPH # 2.2 103/ul Normal 1.2-3.8 [facility] Comment on above: Performed By: #### C VDTBH #### [facility] [address] [place] [address] Dr. Lukas Foote Lymphocytes/100 WBC (Bld) 18.0 % Critically low 20.5-60.0 [facility] Comment on above: Performed By: #### C VDTBH #### [facility] [address] [place] [address] Dr. Lukas Foote MANUAL DIFF REQ NO Normal [facility] Comment on above: Performed By: #### C VDTBH #### [facility] [address] [place] [address] Dr. Lukas Foote MCH (RBC) [Entitic mass] 29.9 pg Normal 26.7-34.0 [facility] Comment on above: Performed By: #### C VDTBH #### [facility] [address] [place] [address] Dr. Lukas Foote MCHC (RBC) [Mass/Vol] 32.8 g/dL Normal 29.9-35.2 [facility] Comment on above: Performed By: #### C VDTBH #### [facility] [address] [place] [address] Dr. Lukas Foote MCV (RBC) [Entitic vol] 91.0 fL Normal 81.0-99.0 [facility] Comment on above: Performed By: #### C VDTBH #### [facility] [address] [place] [address] Dr. Lukas Foote MONO # 1.0 103/ul Critically high 0.3-0.8 [facility] Comment on above: Performed By: #### C VDTBH #### [facility] [address] [place] [address] Dr. Lukas Foote Monocytes/100 WBC (Bld) 7.9 % Normal 1.7-12.0 [facility] Comment on above: Performed By: #### C VDTBH #### [facility] [address] [place] [address] Dr. Lukas Foote NEUT # 9.0 103/ul Critically high 1.4-6.5 [facility] Comment on above: Performed By: #### C VDTBH #### [facility] [address] [place] [address] Dr. Lukas Foote Neutrophils/100 WBC (Bld) 73.5 % Normal 43.0-75.0 [facility] Comment on above: Performed By: #### C VDTBH #### [facility] [address] [place] [address] Dr. Lukas Foote Platelet mean volume (Bld) [Entitic vol] 11.0 fL Normal 9.5-13.5 [facility] Comment on above: Performed By: #### C VDTBH #### [facility] [address] [place] [address] Dr. Lukas Foote PLT 260 103/ul Normal 150-450 [facility] Comment on above: Performed By: #### C VDTBH #### [facility] [address] [place] [address] Dr. Lukas Foote RBC 4.02 106/ul Critically low 4.20-5.40 [facility] Comment on above: Performed By: #### C VDTBH #### [facility] [address] [address] [address] Lukas Foote WBC 12.3 103/ul Critically high 4.0-11.0 [facility] Comment on above: Performed By: #### C VDTBH #### [facility] [address] [address] [address] Lukas Foote CREATININEon 04-05-2021 Creatinine [Mass/Vol] 1.35 mg/dL Critically high 0.52-1.04 [facility] Comment on above: Performed By: #### C VIVIANE, BUN #### [facility] [address] [place] [address] Dr. Lukas Foote EGFR-AF BANGLADESHI 55 mL/min/1.73m2 Critically low >=60 [facility] Comment on above: Performed By: #### C VIVIANE, BUN #### [facility] [address] [place] [address] Dr. Lukas Foote EGFR-NON AF BANGLADESHI 45 mL/min/1.73m2 Critically low >=60 [facility] Comment on above: Performed By: #### C VIVIANE, BUN #### [facility] [address] [place] [address] Dr. Lukas Foote Facesheeton 04-04-2021 Facesheet [id number] .[id number]:127 Normal [facility] Insurance Correspondence Off iceon 04-04-2021 Insurance Correspondence Office [id number] 1.00CD:127 Normal [facility] Covid-19 PCR (CVDTBH)on SARS-CoV-2 (COVID-19) RNA JAYNA+probe Ql (Unsp spec) Not detected Normal NOT DETECTED [facility] Comment on above: Result Comment: This test is not yet approved or cleared by the [place] FDA. When there are no FDA-approved or cleared tests available, and other criteria are met, FDA can make tests available under an emergency access mechanism called an Emergency Use Authorization (EUA). The EUA for this test is supported by the [place] of Health and Human Service's (HHS's) declaration that circumstances exist to justify the emergency use of in vitro diagnostics for the detection and/or diagnosis of the virus that causes COVID-19. This EUA will remain in effect (meaning this test can be used) for the duration of the COVID-19 declaration justifying emergency of IVDs, unless it is terminated or revoked by FDA (after which the test may no longer be used). When diagnostic testing is negative, the possibility of a false negative should be considered in the context of a patient's recent exposures and the presence of clinical signs and symptoms consistent with SARS-CoV-2. Performed By: #### C VDTBH #### [facility] [address] [address] [address] Lukas Foote TYPE AND SCREENon 03-31-2021 TYPE AND SCREEN Negative Normal [facility] Comment on above: Performed By: #### C VDTBH #### [facility] [address] [address] [address] Lukas Foote Auth for Release of Medical Recordson 02-14-2021 Auth for Release of Medical Records [id number] Normal [facility] Encounters Encounter Date Encounter Type Care Provider Facility Start: 04-19-2023 End: 04-19-2023 ambulatory LIZETH MCGRAW Not Available Start: 04-04-2023 End: 04-04-2023 ambulatory ROSHNI WALLACE Not Available Start: 03-08-2023 End: 03-08-2023 ambulatory LIZETH MCGRAW Not Available Start: 01-18-2022 End: [address] LEWIS CAMACHO Facility:[facility] Start: 12-15-2021 End: 12-16-[address] Jairo Pierce Facility:[facility] Start: 10-26-2021 End: 10-26-[address] PIOTR BELCHER Facility:[facility] Start: 06-02-2021 End: 06-03-2021 ambulatory MD Lewis CAMACHO Facility:CD:[id number] Start: 05-31-2021 Encounter for preprocedural laboratory examination DR LEWIS CAMACHO [facility] Start: 05-30-[address] LIZETH MCGRAW Facil ity:[facility] Start: 05-27-2021 End: 05-28-[address] LEWIS CAMACHO Facility:[facility] Start: 05-27-2021 End: 05-28-2021 Encounter for preprocedural laboratory examination DR LEWIS CAMACHO Facility:[facility] Start: 05-09-2021 ambulatory MD Lewis CAMACHO Facil ity:[facility] Start: 05-09-2021 End: 05-10-2021 ambulatory MD Lewis CAMACHO Facility:[facility] [place] Start: 05-06-2021 ambulatory MD Lewis CAMACHO Fac ility:[facility] Start: 04-06-2021 Encounter for other preprocedural examination DR PIOTR BELCHER [facility] Start: 04-04-2021 End: 04-05-2021 ambulatory MD Lewis CAMACHO Facility:[id number] Start: 04-04-2021 End: 04-05-2021 Evaluation and management of inpatient DR PIOTR BELCHER Facility:[facility] Start: 04-01-2021 ambulatory MD Lewis CAMACHO Facil ity:[facility] Start: 04-01-2021 ambulatory MD Lewis CAMACHO Facil ity:[facility] [place] Start: 03-31-2021 End: 04-01-[address] PIOTR BELCHER Facility:[facility] Start: 03-24-2021 End: 03-25-[address] LIZETH MCGRAW Facility:[facility] Start: 03-24-2021 End: 03-25-2021 Encounter for other preprocedural examination DR LIZETH MCGRAW Facility:[facility] Start: 02-14-2021 End: 02-14-[address] PIOTR BELCHER Facility:[facility] Start: 02-07-2021 End: 02-08-[address] LIZETH MCGRAW Facility:[facility] Start: 11-20-2016 End: 11-21-2016 Ambulatory DEFAULT PHYSICIAN Facility:[facility] Procedures Date Procedure Procedure Detail Performing Clinician Start: 04-04-2021 Resection of Bilater al Ovaries, Open Approach DR PIOTR BELCHER Start: 04-04-2021 Dilation of Left Ure ter with Intraluminal Device, Via Natural or Artificial Opening Endoscopic DR PIOTR BELCHER Start: 04-04-2021 Fluoroscopy of Left Kidney, Ureter and Bladder using Low Osmolar Contrast DR PIOTR BELCHER Start: 04-04-2021 Insertion of Other D evice into Genitourinary Tract, Via Natural or Artificial Opening Endoscopic DR PIOTR BELCHER Payers Date Payer Category Payer Unknown [id number] 2.16.8 [id number] 1990 Unknown [id number] 2.16.8 [id number] 1988 Unknown [id number] 2.16.8 40.1.800868.3.579.2.727 1988 Unknown [id number] 2.16.8 40.1.349999.3.579.2.727 1988 Unknown [id number] 2.16.84 0.1.580818.3.579.2.593 1988 Unknown [id number] 2.16.84 0.1.526655.3.579.2.593 1988 Unknown [id number] 2.16.84 0.1.295299.3.579.2.593 1988 Unknown [id number] 2.16.84 0.1.076515.3.579.2.593 1988 Unknown [id number] 2.16.84 0.1.918842.3.579.2.593 1988 Unknown [id number] 2.16.84 0.1.354819.3.579.2.593 1988 Unknown [id number] 2.16.84 0.1.169986.3.579.2.593 1988 Unknown [id number] 2.16.84 0.1.732803.3.579.2.593 1988 Unknown [id number] 2.16.84 0.1.483144.3.579.2.593 1988 Unknown [id number] 2.16.84 0.1.827371.3.579.2.593 1988 Unknown [id number] 2.16.84 0.1.677816.3.579.2.593 1988 Unknown [id number] 2.16.84 0.1.345406.3.579.2.593 1988 Unknown [id number] 2.16.84 0.1.282482.3.579.2.593 1988 Unknown [id number] 2.16.84 0.1.211759.3.579.2.1259 1988 Unknown [id number] 2.16.84 0.1.055098.3.579.2.1259 1988 Unknown [id number] 2.16.840 .1.218226.3.579.2.1259 1961 Self-pay 1961 Unknown [id number] Unknown Clinical Note 12-15-2021 Note Date & Type Note Facility 12-15-2021 Note PROCEDURE: XR FINGER MIN 2 VIEWS HISTORY: Pain in finger of right hand ; pain in proximal fifth digit since falling one month ago COMPARISON: None. FINDINGS: BONES:No fracture, acute abnormality, or significant arthropathy. SOFT TISSUES:No visible soft tissue swelling. EFFUSION:None visible. OTHER: Negative. IMPRESSION: 1. Normal examination. Electronically authenticated by: JAIRO PIERCE Date: 2021-12-15 14:36 [facility] Summary Purpose Family History No Family History Records FoundNo Family History Records FoundNo Family History Records FoundNo Family History Records Found Advance Directives No Advanced Directives Records FoundNo Advanced Directives Records FoundNo Advanced Directives Records FoundNo Advanced Directives Records Found Additional Source Comments INFORMATION SOURCE (unrecogn ized section and content) DATE CREATED AUTHOR 09/19/2017 [facility] DATE CREATED AUTHOR AUTHOR'S ORGANIZ ATION 01/29/2022 [facility] DATE CREATED AUTHOR AUTHOR'S ORGANIZ ATION 02/01/2022 [facility] DATE CREATED AUTHOR AUTHOR'S ORGANIZ ATION 04/21/2023 [facility] EPIC FOR RECORDS PERTAINING TO PATIENTS WHO ARE OR HAVE BEEN ENROLLED IN A CHEMICAL DEPENDENCY/SUBSTANCEABUSE PROGRAM, SOME INFORMATION MAY BE OMITTED. This clinical summary was aggregated from multiple sources. Caution should be exercised in using it in the provision of clinical care. This summary normalizes information from multiple sources, and as a consequence, information in this document may materially change the coding, format and clinical context of patient data. In addition, data may be omitted in some cases. CLINICAL DECISIONS SHOULD BE BASED ON THE PRIMARY CLINICAL RECORDS. [facility] [email or web address]. provides no warranty or guarantee of the accuracy or completeness of information in this document.
[2023-10-22 22:45] VITALS: BP 186/110; PULSE 59; TEMP 36.8; O2SAT 99; BMI 36.9
[2023-10-22 22:47] VITALS: BP 186/110
[2023-10-22 22:52] VITALS: PULSE 70
[2023-10-22 23:14] VITALS: BP 139/83; PULSE 72; O2SAT 96
[2023-10-22 23:15] VITALS: BP 139/83; O2SAT 98
--- NOTE | 2023-10-22 23:18 | ECG_ITS ---
The [facility] Test Date: 2023-10-22 Pat Name: BERTRAM JOHNSON Department: Room: - Gender: Female Medicaid Biller: : 1990 Requested By: LIZETH MCGRAW Order Number: [id number] Reading MD: MONCHO RICARDO Measurements Intervals [place] Rate: 63 P: 10 RI: 158 QRS: 8 QRSD: 86 T: 16 QT: 406 QTc: 414 Interpretive Statements 1100 Sinus rhythm 9110 normal ECG Compared to ECG 12/22/2020 22:11:34 No significant changes Electronically Signed On 10-22-2023 23:39:12 EDT by MONCHO RICARDO
--- NOTE | 2023-10-22 23:18 | XR_ITS ---
The [address] [address] Patient Name: BERTRAM JOHNSON MRN: [id number] date: 1990 Sex: F Assigned Patient Location: ER Current Patient Location: ER Accession/Order Number: [id number] Exam Date: 10/22/2023 23:55 Report Date: 10/23/2023 00:26 At the request of: ALEX HUFF Procedure: XR chest 1V EXAM: XR chest 1V HISTORY: Chest pain COMPARISON: Chest radiograph dated 12/22/2020. TECHNIQUE: One view of the chest was obtained. FINDINGS: The cardiac silhouette is stable in size. There are mild hypoventilatory changes. There is no significant pneumothorax or pleural effusion. No acute osseous abnormality is seen. XR/XR chest 1V IMPRESSION: 1. Mild hypoventilatory changes with no acute cardiopulmonary abnormality. Electronically authenticated by: Bryce BAUM Date: 10/23/2023 00:26
--- NOTE | 2023-10-22 23:18 | ED.CHESTPAI1 ---
HPI - Chest Pain General Chief Complaint: Chest Pain Stated Complaint: Chest Pain Time Seen by Provider: 10/22/23 23:14 Source: patient Mode of arrival: walk-in Limitations: no limitations History of Present Illness HPI narrative: 33-year-old female presents for chest pain. It started 1 and half hours ago while she was sitting watching TV. There was no injury. She has not been under any unusual stress. It is in the middle part of her chest and feels like something is pushing on her. It seems to go into the left arm. Related Data Allergies Allergy/AdvReac Type Severity Reaction Status Date / Time No Known Drug Allergies Allergy Verified 10/22/23 22:48 Review of Systems ROS Narrative A ten point review of systems is negative except as noted above. Exam Narrative Exam Narrative: Nurses note and vital signs reviewed and patient is not hypoxic. General: The patient appears well and in no apparent distress. Patient is resting comfortably on cart. Skin: Warm, dry, no pallor noted. There is no rash noted. Head: Normocephalic, atraumatic Eye: Normal conjunctiva, no drainage Ears, Nose, Mouth, and Throat: oral mucosa is moist. Nares patent. Respiratory: Patient is in no distress, no accessory muscle use, lungs are clear to auscultation, no wheezing, rales or rhonchi Back: non-tender GI: Soft and nontender Musculoskeletal: The patient has no evidence of calf tenderness, no pitting edema, symmetrical pulses noted bilaterally Neurological: A&O, normal speech Psychiatric: Cooperative Constitutional Vital Signs, click to edit/add: Last Vital Signs Temp 98.3 F 10/22/23 22:45 Pulse 66 10/23/23 00:17 Resp 18 10/23/23 00:17 BP 113/57 10/23/23 00:17 Pulse Ox 96 10/23/23 00:17 O2 Del Method Room Air 10/22/23 23:14 Course Vital Signs Vital signs: Vital Signs Temperature 98.3 F 10/22/23 22:45 Pulse Rate 59 L 10/22/23 22:45 Respiratory Rate 18 10/22/23 22:45 Blood Pressure 186/110 H 10/22/23 22:45 Pulse Oximetry 99 10/22/23 22:45 Oxygen Delivery Method Room Air 10/22/23 22:45 Temperature 98.3 F 10/22/23 22:45 Pulse Rate 66 10/23/23 00:17 Respiratory Rate 18 10/23/23 00:17 Blood Pressure 113/57 10/23/23 00:17 Pulse Oximetry 96 10/23/23 00:17 Oxygen Delivery Method Room Air 10/22/23 23:14 MDM - Chest Pain MDM Narrative Medical decision making narrative: Her workup including troponin is negative. She was given a GI cocktail without much change and then she was given IV Toradol and her symptom is essentially completely gone. She is able to be discharged home. I do not suspect acute coronary syndrome at this point. I have no clinical suspicion of pulmonary embolism. Treatment diagnosis and follow-up were discussed with the patient. Differential Diagnosis Differential diagnosis: Likely pneumothorax, unstable angina pectoris, atypical chest pain, st elevation myocardial infarction and chest pain Lab Data Attestation: I reviewed the patient's lab results. Labs: Lab Results 10/22/23 Range/Units 22:35 WBC 6.8 (4.0-11.0) 10^3/uL RBC 4.19 L (4.20-5.40) 10^6/uL Hgb 12.8 (12.0-16.0) g/dL Hct 38.3 (36.0-48.0) % MCV 91.4 (81.0-99.0) fL MCH 30.5 (26.7-34.0) pg MCHC 33.4 (29.9-35.2) g/dL RDW 13.3 (11.0-15.0) % Plt Count 238 (150-450) 10^3/uL MPV 11.4 (9.5-13.5) fL Neut % (Auto) 58.8 (43.0-75.0) % Lymph % (Auto) 30.1 (20.5-60.0) % [place] % (Auto) 8.6 (1.7-12.0) % Eos % (Auto) 1.5 (0.9-7.0) % Baso % (Auto) 0.7 (0.2-2.0) % Neut # (Auto) 4.0 (1.4-6.5) 10^3/uL Lymph # (Auto) 2.0 (1.2-3.8) 10^3/uL Randolph # (Auto) 0.6 (0.3-0.8) 10^3/uL Eos # (Auto) 0.1 (0.0-0.7) 10^3/uL Baso # (Auto) 0.1 (0.0-0.1) 10^3/uL Abs Immat Gran (auto) 0.02 (0.00-0.03) 10^3/uL Imm/Tot Granulo (auto) 0.3 (0.0-0.5) % Sodium 137 (136-145) mmol/L Potassium 3.2 L (3.5-5.1) mmol/L Chloride 105 (98-107) mmol/L Carbon Dioxide 26.4 (21.0-32.0) mmol/L Anion Gap 8.8 BUN 13.0 (7.0-18.0) mg/dL Creatinine 1.01 (0.55-1.02) mg/dL Est GFR ( Amer) >60 (>=60) Est GFR (Non-Af Amer) >60 (>=60) BUN/Creatinine Ratio 12.9 Glucose 105 (74-106) mg/dL Calcium 8.7 (8.5-10.1) mg/dL Troponin I High Sens 4.3 (4.0-51.3) pg/mL Imaging Data Chest x-ray: Radiologist's impression: ITS Impressions Chest X-Ray 10/22/23 23:18 IMPRESSION: 1. Mild hypoventilatory changes with no acute cardiopulmonary abnormality. Electronically authenticated by: Bryce BAUM Date: 10/23/2023 00:26 ECG Data Attestation: I personally reviewed and interpreted this ECG as follows: (EKG on my interpretation shows normal sinus rhythm with a rate of 63 and no acute change) Heart Score History: Slightly/Non-Suspicious ECG: Normal Age: <45 years Risk Factors: No Risk Factors Troponin: <Normal Limit Total Heart Score Recommendations & Risks:: 0 Discharge Plan Discharge Stand Alone Forms: Portal Instructions Chief Complaint: Chest Pain Clinical Impression: Chest pain Patient Disposition: Home, Self-Care Time of Disposition Decision: 01:17 Condition: Good Mode of Transportation: Private Vehicle Print Language: [place] Instructions: Chest Pain (ED) Referrals: Lonny Le MD [Primary Care Provider] - 1 week
[2023-10-22 23:30] VITALS: PULSE 67
[2023-10-22 23:41] LABS: Basophils Absolute Auto 0.1 10^3/uL (0.0-0.1); Basophils Percent Auto 0.7 % (0.2-2.0); Eosinophils Absolute Auto 0.1 10^3/uL (0.0-0.7); Eosinophils Percent Auto 1.5 % (0.9-7.0); Hematocrit 38.3 % (36.0-48.0); Hemoglobin 12.8 g/dL (12.0-16.0); Immature Granulocytes Abs Auto 0.02 10^3/uL (0.00-0.03); Immature Granulocytes Pct Auto 0.3 % (0.0-0.5); Lymphocytes Percent Auto 30.1 % (20.5-60.0); Mean Corpuscular HGB Conc 33.4 g/dL (29.9-35.2); Mean Corpuscular Hemoglobin 30.5 pg (26.7-34.0); Mean Corpuscular Volume 91.4 fL (81.0-99.0); Mean Platelet Volume 11.4 fL (9.5-13.5); Monocytes Absolute Auto 0.6 10^3/uL (0.3-0.8); Monocytes Percent Auto 8.6 % (1.7-12.0); Neutrophils Percent Auto 58.8 % (43.0-75.0); Platelet Count 238 10^3/uL (150-450); Red Blood Count 4.19 10^6/uL (4.20-5.40); Red Cell Distribution Width 13.3 % (11.0-15.0); White Blood Count 6.8 10^3/uL (4.0-11.0)
[2023-10-22 23:59] LABS: Anion Gap 8.8; BUN Creatinine Ratio 12.9; Calcium 8.7 mg/dL (8.5-10.1); Carbon Dioxide 26.4 mmol/L (21.0-32.0); Chloride 105 mmol/L (98-107); Estimated GFR (African America >60 (>=60); Estimated GFR (Non-African Ame >60 (>=60); Glucose 105 mg/dL (74-106); Potassium 3.2 mmol/L (3.5-5.1); Sodium 137 mmol/L (136-145); Troponin I High Sensitivity 4.3 pg/mL (4.0-51.3)
[2023-10-23] MEDS: lidocaine HCL 15 ML, MAG HYDROX/ALUMINUM HYD/SIMETH 30 ML, HYOSCYAMINE SULFATE 0.25 MG PO (00:15)
[2023-10-23 00:17] VITALS: BP 113/57; PULSE 66; O2SAT 96
[2023-10-23] MEDS: KETOROLAC TROMETHAMINE 30 MG/ML VIAL IVP (00:42)
== END 2023-10-23 01:29 | disposition home or self-care (01) ==
PROVIDERS: Emergency Provider Emergency Medicine; PCP Family Medicine
DX: R07.9 Chest pain, unspecified (principal)
CPT/HCPCS: 36415; 71045; 80048; 84484; 85025; 93005; 96374; 99285; J1885

== ENCOUNTER 2023-11-01 09:43 | Outpatient (OUT) | payer OTHER, SELFPAY ==
--- OUTSIDE RECORDS SUMMARY | 2023-11-01 09:47 | XMS_ITS | CCD ---
Author Organization [facility] Care Team Providers Care Associate Theatre Professor Name Role Phone PHYSICIAN, DEFAULT Unavailable Unavailable PHYSICIAN, DEFAULT Unavailable Unavailable MD Lewis CAMACHO Attending Unavailable ADRIANNA, MD Lewis Chandler Attending Unavailable MD Lewis CAMACHO Attending Unavailable ADRIANNA, MD Lewis Chandler Attending Unavailable KARASIK, DR SALDAÑA Procedure Practitioner Unava ilable ADRIANNA, DR SANTIAGO Consulting Unavailable NADERER, DR STANLEY A Primary Care Unavailable KARASIK, DR SALDAÑA Attending Unavailable KARASIK, DR SALDAÑA Admitting Unavailable KARASIK, DR SALDAÑA Consulting Unavailable MADISON, DR BARAKAT Consulting Unavailable CAMACHO, DR SANTIAGO Procedure Practitioner CAMILO [place] Consulting Unavailable CHRISTINE, KORTNEY Consulting Unavailable CAMACHO, DR SANTIAGO Attending Unavailable CAMACHO, [...] Attending Unavailable CAMACHO, DR SANTIAGO Admitting Unavailable AGUBOSIM, TOÑO Consulting Unavailable DORKOSKIESTIVEN Consulting Unavailable NADERER, DR [...] Attending Unavailable KARASIK, DR SALDAÑA Admitting Unavailable CAMACHO, DR SANTIAGO Consulting Unavailable [...] Attending Unavailable MISC, DR DEVRIES Admitting Unavailable KARASIK, DR SALDAÑA Consulting Unavailable NADERER, DR LIZETH Cordon Primary Care Unavailable KARASIK, DR SALDAÑA Attending Unavailable KARASIK, DR SALDAÑA Admitting Unavailable MADISONROSHNI Attending Unavailable NADERER, LIZETH Attending Unavailable NADERER, LIZETH Attending Unavailable NADERER, LIZETH Attending Unavailable Allergies Allergy Classification Reported Allergen(s) Allergy Type Date of Onset Reaction(s) Facility (1 source) No Known Medication Allergies; Translations: [No Known Medication Allergies] Propensity to adverse reactions (disorder) [facility] Repository Problems Active Problems Problem Classification Problem [...] Onset: 05-02-2021 Other aftercare (1 source) Other group home (current) drug therapy; Translations: [OTH PENITENTIARY CURRENT DRUG THERAPY] Onset: 12-16-2021 Episodic Other [...] RAD - MISCon 01-29-2022 RAD - MISC [id number] .00CD:127 Normal [facility] Lab Reportson 2022 Lab Reports [id number] .00CD:127 Normal [facility] CREATININEon 01-18-2022 Creatinine [Mass/Vol] 1.19 mg/dL Critically high 0.55-1.02 [facility] Comment on above: Performed By: #### C VDTBH #### [facility] [address] [address] [address] Lukas Foote EGFR-AF BULGARIAN >60 Normal >=60 [facility] Comment on above: Performed By: #### C VDTBH #### [facility] [address] [address] [address] Lukas Foote EGFR-NON AF BULGARIAN 52 mL/min/1.73m2 Critically low >=60 [facility] Comment on above: Performed By: #### C VDTBH #### [facility] [address] [address] [address] Lukas Foote XR IVPon 01-18-2022 XR IVP EXAMINATION: XR IVP HISTORY: Flank pain ; left flank pain, bladder pain for 3 months (no pain while urinating) COMPARISON: No relevant comparison available. TECHNIQUE: After obtaining patient consent a shag truck driver image was obtained followed by injection of [...] JAIRO PIERCE Date: 2022-01-18 09:36 Normal [facility] VIT D 1 25 DIHYDROXYon 12-18 Calcitriol(1,25 di-OH Vit D) 46.5 pg/mL Normal 24.8-81.5 [facility] Comment on above: Result Comment: Pl ease note reference interval change Performed By: #### V [id number] #### [facility] [address] [place] [address] Dr. Lukas Foote LITHIUMon 12-16-2021 [place] (Eskalith(R)), Serum 0.3 mmol/L Critically low 0.5-1.2 [facility] Comment on above: Result Comment: Plas ma concentration of 0.5 - 0.8 mmol/L are advised for long-term use; concentrations of up to 1.2 mmol/L may be necessary during acute treatment. Detection Limit = 0.1 <0.1 indicates None Detected Performed By: #### C VDTBH #### [facility] [address] [place] [address] Dr. Lukas Foote PROLACTINon 12-16-2021 Prolactin 8.2 ng/mL Normal 4.8-23.3 [facility] Comment on above: Performed By: #### P ROLAC #### [facility] [address] [place] [address] Dr. Lukas Foote CBC AUTO DIFFon 12-15-2021 BASO # 0.0 103/ul Normal 0.0-0.1 [facility] Comment on above: Performed By: #### C VDTBH #### [facility] [address] [place] [address] Dr. Lukas Foote Basophils/100 WBC (Bld) 0.6 % Normal 0.2-2.0 [facility] Comment on above: Performed By: #### C VDTBH #### [facility] [address] [place] [address] Dr. Lukas Foote EO # 0.1 103/ul Normal 0.0-0.7 [facility] Comment on above: Performed By: #### C VDTBH #### [facility] [address] [place] [address] Dr. Lukas Foote Eosinophils/100 WBC (Bld) 1.8 % Normal 0.9-7.0 [facility] Comment on above: Performed By: #### C VDTBH #### [facility] [address] [place] [address] Dr. Lukas Foote Erythrocyte distribution width (RBC) [Ratio] 12.5 % Normal 11.0-15.0 [facility] Comment on above: Performed By: #### C VDTBH #### [facility] [address] [place] [address] Dr. Lukas Foote Hematocrit (Bld) [Volume fraction] 40.3 % Normal 36.0-48.0 [facility] Comment on above: Performed By: #### C VDTBH #### [facility] [address] [place] [address] Dr. Lukas Foote Hemoglobin (Bld) [Mass/Vol] 12.9 g/dL Normal 12.0-16.0 [facility] Comment on above: Performed By: #### C VDTBH #### [facility] [address] [place] [address] Dr. Lukas Foote IG # 0.03 10e3/ul Normal 0.00-0.03 [facility] Comment on above: Performed By: #### C VDTBH #### [facility] [address] [place] [address] Dr. Lukas Foote IG % 0.4 % Normal 0.0-0.5 [facility] Comment on above: Performed By: #### C VDTBH #### [facility] [address] [address] [address] Lukas Foote LYMPH # 1.6 103/ul Normal 1.2-3.8 [facility] Comment on above: Performed By: #### C VDTBH #### [facility] [address] [place] [address] Dr. Lukas Foote Lymphocytes/100 WBC (Bld) 24.1 % Normal 20.5-60.0 [facility] Comment on above: Performed By: #### C VDTBH #### [facility] [address] [place] [address] Dr. Lukas Foote MANUAL DIFF REQ NO Normal [facility] Comment on above: Performed By: #### C VDTBH #### [facility] [address] [place] [address] Dr. Lukas Foote MCH (RBC) [Entitic mass] 29.7 pg Normal 26.7-34.0 [facility] Comment on above: Performed By: #### C VDTBH #### [facility] [address] [place] [address] Dr. Lukas Foote MCHC (RBC) [Mass/Vol] 32.0 g/dL Normal 29.9-35.2 [facility] Comment on above: Performed By: #### C VDTBH #### [facility] [address] [place] [address] Dr. Lukas Foote MCV (RBC) [Entitic vol] 92.9 fL Normal 81.0-99.0 [facility] Comment on above: Performed By: #### C VDTBH #### [facility] [address] [place] [address] Dr. Lukas Foote MONO # 0.4 103/ul Normal 0.3-0.8 [facility] Comment on above: Performed By: #### C VDTBH #### [facility] [address] [place] [address] Dr. Lukas Foote Monocytes/100 WBC (Bld) 6.2 % Normal 1.7-12.0 [facility] Comment on above: Performed By: #### C VDTBH #### [facility] [address] [place] [address] Dr. Lukas Foote NEUT # 4.5 103/ul Normal 1.4-6.5 [facility] Comment on above: Performed By: #### C VDTBH #### [facility] [address] [place] [address] Dr. Lukas Foote Neutrophils/100 WBC (Bld) 66.9 % Normal 43.0-75.0 [facility] Comment on above: Performed By: #### C VDTBH #### [facility] [address] [place] [address] Dr. Lukas Foote Platelet mean volume (Bld) [Entitic vol] 11.4 fL Normal 9.5-13.5 [facility] Comment on above: Performed By: #### C VDTBH #### [facility] [address] [place] [address] Dr. Lukas Foote PLT 245 103/ul Normal 150-450 [facility] Comment on above: Performed By: #### C VDTBH #### [facility] [address] [place] [address] Dr. Lukas Foote RBC 4.34 106/ul Normal 4.20-5.40 [facility] Comment on above: Performed By: #### C VDTBH #### [facility] [address] [place] [address] Dr. Lukas Foote WBC 6.8 103/ul Normal 4.0-11.0 [facility] Comment on above: Performed By: #### C VDTBH #### [facility] [address] [place] [address] Dr. Lukas Foote GLYCOHEMOGLOBIN A1Con 2021 ADA RECOMMENDATION SEE BELOW Normal [facility] Comment on above: Result Comment: ADA RECOMMENDED LIMIT 4.0 - 6.0 ADA THERAPEUTIC TARGET < 7.0 ACTION SUGGESTED > 7.0 Performed By: #### C VDTBH #### [facility] [address] [address] [address] Lukas Foote Glucose [Mass/Vol] 94 mg/dL Normal [facility] Comment on above: Performed By: #### C VDTBH #### [facility] [address] [address] [address] Lukas Foote HbA1c (Bld) [Mass fraction] 4.9 % Normal 4.5-6.2 [facility] Comment on above: Performed By: #### C VDTBH #### [facility] [address] [address] [address] Lukas Foote LIPID PROFILEon 12-15-2021 CHOL-HDL RATIO NORM SEE BELOW Normal [facility] Comment on above: Result Comment: 3.3 - 4.4 LOW RISK 4.4 - 7.1 AVERAGE RISK 7.1 - 11.0 MODERATE RISK >11.0 HIGH RISK Performed By: #### L IPID, TSH, CMP #### [facility] [address] [place] [address] Dr. Lukas Foote Cholesterol [Mass/Vol] 210 mg/dL Critically high <=200 [facility] Comment on above: Performed By: #### L IPID, TSH, CMP #### [facility] [address] [place] [address] Dr. Lukas Foote Cholesterol in HDL [Mass/Vol] 52 mg/dL Normal 40-60 [facility] Comment on above: Performed By: #### L IPID, TSH, CMP #### [facility] [address] [address] [address] Lukas Foote Cholesterol in LDL [Mass/Vol] 115.8 mg/dL Normal [facility] Comment on above: Performed By: #### L IPID, TSH, CMP #### [facility] [address] [address] [address] Lukas Foote Cholesterol.total/Cho lesterol in HDL [Mass ratio] 4.0 {ratio} Normal [facility] Comment on above: Performed By: #### L IPID, TSH, CMP #### [facility] [address] [address] [address] Lukas Foote HDL NORMAL > or = 60 mg/dl - LO W CARDIOVASCULAR RISK <40 mg/dl - HIGH CARDIOVASCULAR RISK Normal [facility] Comment on above: Performed By: #### L IPID, TSH, CMP #### [facility] [address] [address] [address] Lukas Foote LDL CALC NORMAL SEE BELOW Normal [facility] Comment on above: Result Comment: <100 mg/dl OPTIMAL 100 - 129 mg/dl NEAR OR ABOVE OPTIMAL 130 - 159 mg/dl BORDERLINE HIGH 160 - 189 mg/dl HIGH >190 mg/dl VERY HIGH Performed By: #### L IPID, TSH, CMP #### [facility] [address] [address] [address] Lukas Foote Triglyceride [Mass/Vol] 211 mg/dL Critically high <=150 [facility] Comment on above: Performed By: #### L IPID, TSH, CMP #### [facility] [address] [address] [address] Lukas Foote VLDL CALC 42.2 mg/dL Normal [facility] Comment on above: Performed By: #### L IPID, TSH, CMP #### [facility] [address] [address] [address] Lukas Foote PROF 14(COMP METB)on 022 Albumin [Mass/Vol] 3.8 g/dL Normal 3.4-5.0 [facility] Comment on above: Performed By: #### L IPID, TSH, CMP #### [facility] [address] [address] [address] Lukas Foote Albumin/Globulin [Mass ratio] 1.1 {ratio} Normal [facility] Comment on above: Performed By: #### L IPID, TSH, CMP #### [facility] [address] [address] [address] Lukas Foote ALP [Catalytic activity/Vol] 94 U/L Normal 46-116 [facility] Comment on above: Performed By: #### L IPID, TSH, CMP #### [facility] [address] [address] [address] Lukas Foote ALT [Catalytic activity/Vol] 21 U/L Normal 14-59 [facility] Comment on above: Performed By: #### L IPID, TSH, CMP #### [facility] [address] [address] [address] Lukas Foote Anion gap [Moles/Vol] 12.9 mmol/L Normal [facility] Comment on above: Performed By: #### L IPID, TSH, CMP #### [facility] [address] [address] [address] Lukas Foote AST [Catalytic activity/Vol] 13 U/L Critically low 15-37 [facility] Comment on above: Performed By: #### L IPID, TSH, CMP #### [facility] [address] [address] [address] Lukas Foote Bilirubin [Mass/Vol] 0.2 mg/dL Normal 0.2-1.0 [facility] Comment on above: Performed By: #### L IPID, TSH, CMP #### [facility] [address] [address] [address] Lukas Foote Calcium [Mass/Vol] 9.0 mg/dL Normal 8.5-10.1 [facility] Comment on above: Performed By: #### L IPID, TSH, CMP #### [facility] [address] [address] [address] Lukas Foote Chloride [Moles/Vol] 105 mmol/L Normal 98-107 [facility] Comment on above: Performed By: #### L IPID, TSH, CMP #### [facility] [address] [address] [address] Lukas Foote CO2 [Moles/Vol] 25.9 mmol/L Normal 21.0-32.0 [facility] Comment on above: Performed By: #### L IPID, TSH, CMP #### [facility] [address] [address] [address] Lukas Foote Creatinine [Mass/Vol] 1.17 mg/dL Critically high 0.55-1.02 [facility] Comment on above: Performed By: #### L IPID, TSH, CMP #### [facility] [address] [place] [address] Dr. Lukas Foote EGFR-AF BULGARIAN >60 Normal >=60 [facility] Comment on above: Performed By: #### L IPID, TSH, CMP #### [facility] [address] [place] [address] Dr. Lukas Foote EGFR-NON AF BULGARIAN 53 mL/min/1.73m2 Critically low >=60 [facility] Comment on above: Performed By: #### L IPID, TSH, CMP #### [facility] [address] [place] [address] Dr. Lukas Foote Globulin (S) [Mass/Vol] 3.6 g/dL Normal [facility] Comment on above: Performed By: #### L IPID, TSH, CMP #### [facility] [address] [place] [address] Dr. Lukas Foote Glucose [Mass/Vol] 123 mg/dL Critically high 74-106 [facility] Comment on above: Performed By: #### L IPID, TSH, CMP #### [facility] [address] [place] [address] Dr. Lukas Foote Potassium [Moles/Vol] 3.8 mmol/L Normal 3.5-5.1 [facility] Comment on above: Performed By: #### L IPID, TSH, CMP #### [facility] [address] [place] [address] Dr. Lukas Foote Protein [Mass/Vol] 7.4 g/dL Normal 6.4-8.2 [facility] Comment on above: Performed By: #### L IPID, TSH, CMP #### [facility] [address] [place] [address] Dr. Lukas Foote Sodium [Moles/Vol] 140 mmol/L Normal 136-145 [facility] Comment on above: Performed By: #### L IPID, TSH, CMP #### [facility] [address] [address] [address] Lukas Foote Urea nitrogen [Mass/Vol] 14.0 mg/dL Normal 7.0-18.0 [facility] Comment on above: Performed By: #### L IPID, TSH, CMP #### [facility] [address] [place] [address] Dr. Lukas Foote Urea nitrogen/Creatinine [Mass ratio] 12.0 mg/mg Normal [facility] Comment on above: Performed By: #### L IPID, TSH, CMP #### [facility] [address] [place] [address] Dr. Lukas Foote TSHon 12-15-2021 TSH 2.488 uIU/mL Normal 0.358-3.[address] [facility] Comment on above: Performed By: #### L IPID, TSH, CMP #### [facility] [address] [place] [address] Dr. Lukas Foote PAP ACOG PANEL 2: 30 to 65on 11-01-2021 . . Normal [facility] Comment on above: Result Comment: Perf ormed at: WB Performed By: #### [id number] #### [facility] [address] [place] [address] Dr. Lukas Foote Age Gdln ACOG Testing 30-65 [facility] Comment on above: Performed By: #### 4 [id number] #### [facility] [address] [place] [address] Dr. Lukas Foote DIAGNOSIS: Comment Normal [facility] Comment on above: Result Comment: NEGA TIVE FOR INTRAEPITHELIAL LESION OR MALIGNANCY. Performed at: WB Performed By: #### [id number] #### [facility] [address] [place] [address] Dr. Lukas Foote HPV Aptima Negative Normal Negative [facility] Comment on above: Result Comment: This nucleic acid amplification test detects fourteen high-risk HPV types (16,18,31,33,35,39,45,51,52,56,58,59,66,68) without differentiation. Performed at: =G Performed By: #### 4 [id number] #### [facility] [address] [place] [address] Dr. Lukas Foote Methodology: Comment Normal [facility] Comment on above: Result Comment: This liquid based ThinPrep(R) pap test was screened with the use of an image guided system. Performed at: WB Performed By: #### [id number] #### [facility] [address] [place] [address] Dr. Lukas Foote Note: Comment Normal [facility] Comment on above: Result Comment: The Pap smear is a screening test designed to aid in the detection of premalignant and malignant conditions of the uterine cervix. It is not a diagnostic procedure and should not be used as the sole means of detecting cervical cancer. Both false-positive and false-negative reports do occur. . Performed at: WB Performed By: #### [id number] #### [facility] [address] [place] [address] Dr. Lukas Foote Performed by: Comment Normal [facility] Comment on above: Result Comment: Darin Valencia Guest Room Inspector (ASCP) Performed at: WB Performed By: #### [id number] #### [facility] [address] [place] [address] Dr. Lukas Foote Specimen adequacy: Comment Normal [facility] Comment on above: Result Comment: Sati sfactory for evaluation. No endocervical component is identified. Performed at: WB Performed By: #### [id number] #### [facility] [address] [place] [address] Dr. Lukas Foote Operative Reporton 2 Operative Report [id number] .00CD:127 Normal [facility] Lab Reportson 05-30-2021 Lab Reports [id number] .00CD:127 Normal [facility] Covid-19 PCR (CVDTB)on SARS-CoV-2 (COVID-19) RNA JAYNA+probe Ql (Unsp spec) Not detected Normal NOT DETECTED [facility] Comment on above: Result Comment: This test is not yet approved or cleared by the [place] FDA. When there are no FDA-approved or cleared tests available, and other criteria are met, FDA can make tests available under an emergency access mechanism called an Emergency Use Authorization (EUA). The EUA for this test is supported by the [employer] of Health and Human Service's (HHS's) declaration [...] consistent with SARS-CoV-2. Performed By: #### C [facility] #### [facility] [address] [place] [address] Dr. Lukas Foote Physician Orderon 05-19-2021 Physician Order [id number] .00CD:127 [facility] Formson 05-12-2021 Forms [id number] .00CD:127 [facility] Ambulatory Visit Summaryon 0 05-09-2021 Ambulatory Visit [...] [facility] [address], [place] [phone] Medications What How Much When Why Instructions [...] keep your urine pale yellow. ? Take mwwm-gzj-hjqrpkk or prescription medicines. ? Eat foods that are high in fiber, such as beans, whole grains, and fresh fruits and vegetables. ? Limit foods that are high in fat and processed sugars, such as fried or sweet fo (more content not included)... Normal [facility] Patient Educationon 05-09-19 Patient Education Urology Urinary Frequency, Adult Urinary [...] keep your urine pale yellow. ? Take bcqw-fis-kdginxt or prescription medicines. ? Eat foods that are high in fiber, such as beans, whole grains, and fresh fruits and vegetables. ? Limit foods that are high in fat and processed sugars, such as fried or sweet foods. General instructions ? Take pwwn-fjx-sxbmosg and prescription medicines only as told by [...] muscles that help control urination. ? Take hbcb-qiy-gfwcygw and prescription medicines only as told by [...] 01/06/2010 Document Revised: 09/19/2018 Document Reviewed: 09/19/2018 [employer] Patient Education ? 2019 [employer]. Malaika [facility] Urology Office/Clinic Noteon 05-09-2021 Urology Office/Clinic Note [...] URL [facility] [address] [place] [phone] Additional Instructions: Will schedule Cysto, Ureter, pos. UD and stent removal Patient Education Urinary Frequency, Adult Neela Toribio, personally scribed for Dr. Camacho on 05/09/2021 13:47:28. . Documentation recorded by the chapito armendariz, accurately reflects the services(s) I performed and [...] Diagnostic Results Tests Reviewed: Reviewed op report [facility] Comment on above: Result Comment: Elec tronically Signed By: Lewis CAMACHO MD\.br\Date and Time Signed: 05/09/21 13:51 EST\.br\Electronically Co-Signed By: Neela Elise.br\Date and Time Co-Signed: 05/09/21 13:48 EST Consultation Noteon 04-07-19 Consultation Note [id number]# 1.00CD:127 [facility] Insurance Correspondence Off iceon 04-07-2021 Insurance Correspondence Office [id number] .00CD:127 [facility] Operative Reporton 01-13-202 2 Operative Report [id number] .00CD:127 Normal [facility] BUNon 04-05-2021 Urea nitrogen [Mass/Vol] 15.0 mg/dL Normal 7.0-17.0 [facility] Comment on above: Performed By: #### C VIVIANE, BUN #### [facility] [address] [place] [address] Dr. Lukas Foote CBC AUTO DIFFon 04-05-2021 BASO # 0.0 103/ul Normal 0.0-0.1 [facility] Comment on above: Performed By: #### C VDTBH #### [facility] [address] [place] [address] Dr. Lukas Foote Basophils/100 WBC (Bld) 0.2 % Normal 0.2-2.0 [facility] Comment on above: Performed By: #### C VDTBH #### [facility] [address] [place] [address] Dr. Lukas Foote EO # 0.0 103/ul Normal 0.0-0.7 [facility] Comment on above: Performed By: #### C VDTBH #### [facility] [address] [place] [address] Dr. Lukas Foote Eosinophils/100 WBC (Bld) 0.1 % Critically low 0.9-7.0 [facility] Comment on above: Performed By: #### C VDTBH #### [facility] [address] [place] [address] Dr. Lukas Foote Erythrocyte distribution width (RBC) [Ratio] 12.8 % Normal 11.0-15.0 [facility] Comment on above: Performed By: #### C VDTBH #### [facility] [address] [place] [address] Dr. Lukas Foote Hematocrit (Bld) [Volume fraction] 36.6 % Normal 36.0-48.0 [facility] Comment on above: Performed By: #### C VDTBH #### [facility] [address] [place], [place] [id number] Dr. Lukas Foote Hemoglobin (Bld) [Mass/Vol] 12.0 g/dL Normal 12.0-16.0 [facility] Comment on above: Performed By: #### C VDTBH #### [facility] [address] [place] [address] Dr. Lukas Foote IG # 0.04 10e3/ul Critically high 0.00-0.03 [facility] Comment on above: Performed By: #### C VDTBH #### [facility] [address] [place] [address] Dr. Lukas Foote IG % 0.3 % Normal 0.0-0.5 [facility] Comment on above: Performed By: #### C VDTBH #### [facility] [address] [place] [address] Dr. Lukas Foote LYMPH # 2.2 103/ul Normal 1.2-3.8 [facility] Comment on above: Performed By: #### C VDTBH #### [facility] [address] [place] [address] Dr. Lukas Foote Lymphocytes/100 WBC (Bld) 18.0 % Critically low 20.5-60.0 [facility] Comment on above: Performed By: #### C VDTBH #### [facility] [address] [place] [address] Dr. Lukas Foote MANUAL DIFF REQ NO Normal [facility] Comment on above: Performed By: #### C VDTBH #### [facility] [address] [place] [address] Dr. Lukas Foote MCH (RBC) [Entitic mass] 29.9 pg Normal 26.7-34.0 [facility] Comment on above: Performed By: #### C VDTBH #### [facility] [address] [place] [address] Dr. Lukas Foote MCHC (RBC) [Mass/Vol] 32.8 g/dL Normal 29.9-35.2 [facility] Comment on above: Performed By: #### C VDTBH #### [facility] [address] [place] [address] Dr. Lukas Foote MCV (RBC) [Entitic vol] 91.0 fL Normal 81.0-99.0 [facility] Comment on above: Performed By: #### C VDTBH #### [facility] [address] [place] [address] Dr. Lukas Foote MONO # 1.0 103/ul Critically high 0.3-0.8 [facility] Comment on above: Performed By: #### C VDTBH #### [facility] [address] [place] [address] Dr. Lukas Foote Monocytes/100 WBC (Bld) 7.9 % Normal 1.7-12.0 [facility] Comment on above: Performed By: #### C VDTBH #### [facility] [address] [place] [address] Dr. Lukas Foote NEUT # 9.0 103/ul Critically high 1.4-6.5 [facility] Comment on above: Performed By: #### C VDTBH #### [facility] [address] [place] [address] Dr. Lukas Foote Neutrophils/100 WBC (Bld) 73.5 % Normal 43.0-75.0 [facility] Comment on above: Performed By: #### C VDTBH #### [facility] [address] [place] [address] Dr. Lukas Foote Platelet mean volume (Bld) [Entitic vol] 11.0 fL Normal 9.5-13.5 [facility] Comment on above: Performed By: #### C VDTBH #### [facility] [address] [place] [address] Dr. Lukas Foote PLT 260 103/ul Normal 150-450 [facility] Comment on above: Performed By: #### C VDTBH #### [facility] [address] [place] [address] Dr. Lukas Foote RBC 4.02 106/ul Critically low 4.20-5.40 [facility] Comment on above: Performed By: #### C VDTBH #### [facility] [address] [address] [address] Lukas Foote WBC 12.3 103/ul Critically high 4.0-11.0 [facility] Comment on above: Performed By: #### C VDTBH #### [facility] [address] [address] [address] Lukas Foote CREATININEon 04-05-2021 Creatinine [Mass/Vol] 1.35 mg/dL Critically high 0.52-1.04 [facility] Comment on above: Performed By: #### C VIVIANE, BUN #### [facility] [address] [place] [address] Dr. Lukas Foote EGFR-AF BULGARIAN 55 mL/min/1.73m2 Critically low >=60 [facility] Comment on above: Performed By: #### C VIVIANE, BUN #### [facility] [address] [place] [address] Dr. Lukas Foote EGFR-NON AF BULGARIAN 45 mL/min/1.73m2 Critically low >=60 [facility] Comment on above: Performed By: #### C VIVIANE, BUN #### [facility] [address] [address] [address] Lukas Foote Facesheeton 04-04-2021 Facesheet [id number] .00CD:127 Normal [facility] Insurance Correspondence Off iceon 04-04-2021 Insurance Correspondence Office [id number] 1.00CD:127 Normal [facility] Covid-19 PCR (CVDTBH)on SARS-CoV-2 (COVID-19) RNA JAYNA+probe Ql (Unsp spec) Not detected Normal NOT DETECTED [facility] Comment on above: Result Comment: This test is not yet approved or cleared by the [place] FDA. When there are no FDA-approved or cleared tests available, and other criteria are met, FDA can make tests available under an emergency access mechanism called an Emergency Use Authorization (EUA). The EUA for this test is supported by the [employer] of Health and Human Service's (HHS's) declaration [...] SARS-CoV-2. Performed By: #### C VDTBH #### [facility] [address] [address] [address] Lukas Foote TYPE AND SCREENon 03-31-2021 TYPE AND SCREEN Negative Normal [facility] Comment on above: Performed By: #### C VDTBH #### [facility] [address] [address] [address] Lukas Foote Auth for Release of Medical Recordson 02-14-2021 Auth for Release of Medical Records [id number] .00CD:127 Normal [facility] Encounters Encounter Date Encounter Type Care Provider Facility Start: 10-24-2023 End: 10-24-2023 ambulatory LIZETH MCGRAW Not Available Start: 04-19-2023 End: 04-19-2023 ambulatory LIZETH MCGRAW Not Available Start: 04-04-2023 End: 04-04-2023 ambulatory ROSHNI WALLACE Not Available Start: 03-08-2023 End: 03-08-2023 ambulatory LIZETH MCGRAW Not Available Start: 01-18-2022 End: [address] LEWIS CAMACHO Facility:[facility] Start: 12-15-2021 End: 12-16-[address] Jairo Pierce Facility:[facility] Start: 10-26-2021 End: 10-26-[address] PIOTR BELCHER Facility:[facility] Start: 06-02-2021 End: 06-03-2021 ambulatory MD Lewis CAMACHO Facility:CD:[id number] Start: 05-31-2021 Encounter for preprocedural laboratory examination DR LEWIS CAMACHO [facility] Start: 05-30-[address] LIZETH MCGRAW Facil ity:[facility] Start: 05-27-2021 End: 05-28-[address] LEWIS CAMACHO Facility:[facility] Start: 05-27-2021 End: 05-28-2021 Encounter for preprocedural laboratory examination DR LEWIS CAMACHO Facility:[facility] Start: 05-09-2021 ambulatory MD Lewis Greenberg ity:[facility] Start: 05-09-2021 End: 05-10-2021 ambulatory MD Lewis CAMACHO Facility[facility] Start: 05-06-2021 ambulatory MD Lewis CAMACHO Fac ility:[facility] Start: 04-06-2021 Encounter for other preprocedural examination DR PIOTR BELCHER [facility] Start: 04-04-2021 End: 04-05-2021 ambulatory MD Lewis CAMACHO Facility:CD:[id number] Start: 04-04-2021 End: 04-05-2021 Evaluation and management of inpatient DR PIOTR BELCHER Facility:[facility] Start: 04-01-2021 ambulatory MD Lewis CAMACHO Facil ity:[facility] Start: 04-01-2021 ambulatory MD Lewis CAMACHO Facil [facility]y:[facility] Start: 03-31-2021 End: 04-01-[address] PIOTR BELCHER Facility:[facility] Start: 03-24-2021 End: 03-25-[address] LIZETH MCGRAW Facility:[facility] Start: 03-24-2021 End: 03-25-2021 Encounter for other preprocedural examination DR LIZETH MCGRAW Facility:[facility] Start: 02-14-2021 End: 02-14-[address] PIOTR BELCHER Facility:[facility] Start: 02-07-2021 End: 02-08-[address] LIZETH MCGRAW Facility:[facility] Start: 11-20-2016 End: 11-21-2016 Ambulatory DEFAULT PHYSICIAN Facility:[facility] Procedures Date Procedure Procedure Detail Performing Clinician [...] BELCHER Payers Date Payer Category Payer Unknown [id number] 2.16.8 [id number] 1988 Unknown [id number] 2.16.8 [id number] 1988 Unknown [id number] 2.16.8 40.1.992834.3.579.2.727 1988 Unknown [id number] 2.16.8 40.1.436852.3.579.2.727 1988 Unknown [id number] 2.16.84 0.1.203461.3.579.2.593 1988 Unknown [id number] 2.16.84 0.1.925154.3.579.2.593 1988 Unknown [id number] 2.16.84 0.1.467061.3.579.2.593 1988 Unknown [id number] 2.16.84 0.1.732254.3.579.2.593 1988 Unknown [id number] 2.16.84 0.1.581636.3.579.2.593 1988 Unknown [id number] 2.16.84 0.1.153671.3.579.2.593 1988 Unknown [id number] 2.16.84 0.1.324679.3.579.2.593 1988 Unknown [id number] 2.16.84 0.1.342026.3.579.2.593 1988 Unknown [id number] 2.16.84 0.1.863367.3.579.2.593 1988 Unknown [id number] 2.16.84 0.1.814704.3.579.2.593 1988 Unknown [id number] 2.16.84 0.1.640301.3.579.2.593 1988 Unknown [id number] 2.16.84 0.1.082697.3.579.2.593 1988 Unknown [id number] 2.16.84 0.1.066864.3.579.2.593 1988 Unknown [id number] 2.16.84 0.1.508891.3.579.2.1259 1988 Unknown [id number] 2.16.84 0.1.639954.3.579.2.1259 1988 Unknown [id number] 2.16.84 0.1.194503.3.579.2.1259 1988 Unknown [id number] 2.16.840 .1.415385.3.579.2.1259 1959 Self-pay 1961 Unknown [id number] Unknown Clinical Note 12-15-2021 Note Date & [...] by: JAIRO PIERCE Date: 2021-12-15 14:36 [facility] Summary Purpose Family History No Family History Records FoundNo Family History Records FoundNo Family History Records FoundNo Family History Records Found Advance Directives No Advanced Directives Records FoundNo Advanced Directives Records FoundNo Advanced Directives Records FoundNo Advanced Directives Records Found Additional Source Comments INFORMATION SOURCE (unrecogn ized section and content) DATE CREATED AUTHOR 09/19/2017 [place] DATE CREATED AUTHOR AUTHOR'S ORGANIZ ATION 01/29/2022 [facility] DATE CREATED AUTHOR AUTHOR'S ORGANIZ ATION 02/01/2022 [facility] DATE CREATED AUTHOR AUTHOR'S RANJEET FLETCHER 10/26/2023 [facility] FOR RECORDS PERTAINING TO PATIENTS WHO ARE [...] BE BASED ON THE PRIMARY CLINICAL RECORDS. [facility] [employer] [facility]. provides no warranty or guarantee of the accuracy or completeness of information in this document.
[2023-11-01 09:59] LABS: Basophils Percent Auto 0.7 % (0.2-2.0); Eosinophils Absolute Auto 0.1 10^3/uL (0.0-0.7); Eosinophils Percent Auto 1.9 % (0.9-7.0); Hematocrit 42.4 % (36.0-48.0); Hemoglobin 13.9 g/dL (12.0-16.0); Immature Granulocytes Abs Auto 0.01 10^3/uL (0.00-0.03); Immature Granulocytes Pct Auto 0.2 % (0.0-0.5); Lymphocytes Absolute Auto 1.8 10^3/uL (1.2-3.8); Lymphocytes Percent Auto 32.2 % (20.5-60.0); Mean Corpuscular HGB Conc 32.8 g/dL (29.9-35.2); Mean Corpuscular Hemoglobin 30.2 pg (26.7-34.0); Mean Corpuscular Volume 92.2 fL (81.0-99.0); Mean Platelet Volume 10.8 fL (9.5-13.5); Monocytes Absolute Auto 0.6 10^3/uL (0.3-0.8); Monocytes Percent Auto 9.6 % (1.7-12.0); Neutrophils Absolute Auto 3.2 10^3/uL (1.4-6.5); Neutrophils Percent Auto 55.4 % (43.0-75.0); Platelet Count 241 10^3/uL (150-450); White Blood Count 5.7 10^3/uL (4.0-11.0)
[2023-11-01 10:54] LABS: Alanine Aminotransferase 23 U/L (14-59); Albumin Globulin Ratio 1.2; Albumin Level 4.1 g/dL (3.4-5.0); Alkaline Phosphatase 88 U/L (46-116); Anion Gap 8.7; Aspartate Amino Transferase 12 U/L (15-37); BUN Creatinine Ratio 12.5; Bilirubin Direct 0.1 mg/dL (0.0-0.2); Bilirubin Total 0.4 mg/dL (0.2-1.0); Calcium 9.4 mg/dL (8.5-10.1); Carbon Dioxide 29.8 mmol/L (21.0-32.0); Chloride 103 mmol/L (98-107); Chol HDL Ratio 3.5; Cholesterol 207 mg/dL (<=200); Estimated GFR (African America >60 (>=60); Estimated GFR (Non-African Ame 55 (>=60); Globulin 3.5 g/dL; Glucose 100 mg/dL (74-106); HDL Cholesterol 59 mg/dL (40-60); Potassium 3.5 mmol/L (3.5-5.1); Sodium 138 mmol/L (136-145); Thyroid Stimulating Hormone 2.609 uIU/mL (0.358-3.740); Total Protein 7.6 g/dL (6.4-8.2); Triglycerides 147 mg/dL (<=150); VLDL CHOLESTEROL 29.4 mg/dL
[2023-11-01 11:42] LABS: Estimated Average Glucose 88 mg/dL; Glycohemoglobin A1C 4.7 % (4.5-6.2)
== END 2023-11-01 09:44 | disposition home or self-care (01) ==
LOC: LAB 09:44
PROVIDERS: PCP Family Medicine; Visit Provider Family Medicine
DX: Z00.00 Encounter for general adult medical examination without abnormal findings (principal)
CPT/HCPCS: 36415; 80048; 80061; 80076; 83036; 84443; 85025

== ENCOUNTER 2024-08-18 16:31 | Emergency (ER) | payer OTHER, SELFPAY ==
--- OUTSIDE RECORDS SUMMARY | 2024-02-19 10:00 | XMS_ITS ---
Author Organization [facility] Serv[facility] es Address [address] [place] [address] Care Team Providers Care Lathe Puller Name Role Phone Quincy Walden Primary Care Provider REASON FOR VISIT Transfer from [facility] PAPERWORK Social History Sex Assigned At : Social History Observation Description Sex Assigned At Female Encounters Encounter Location Date Provider Diagnosis [address] [place] [address] 2023 Quincy Walden Plan Of Treatment Next Appt Details Provider Name:Quincy Walden, 10/22/2024 12:30:00 PM, [address] [place], [place] [id number] [place], [address], Progress Notes * BERTRAM JOHNSON SDOB:[birth year] (34 yo F)Acc No.[id number]:02/19/2024 Behavioral Health Patient: BERTRAM ARGUELLO Provider: JEANCARLOS Hurtado :1990 A ge:34 Y S ex:Female Date:02/19/2024 Address:[address] [place], [place] [id number] Subjective: * Chief Complaints: * 1 . Transfer from [facility] PAPERWORK. * Medical History: Objective: * Vitals: Assessment: Plan: * Treatment: * Images: * Electronic signature of JEANCARLOS Bal on 08/18/2024 at 04:38 PM EDT Sign off status: Pending * Provider: JEANCARLOS Hurtado Date: 1 04/20/2023 Generated for Sami santoyo/Haider/Moe on: 0 08/18/2024 04:38 PM EDT
--- OUTSIDE RECORDS SUMMARY | 2024-05-06 14:10 | XMS_ITS ---
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 [facility] [address] [place] [address] Discovery Manager: Isaiah Robertson MD LIPASE Collected: 4 9:28 PM Status: F Source: [facility] TYPE CODE TESTS RESULT OUT OF RANGE REFERENCE UNITS LAB LIP(LOINC) Lipase 32 13-60 U/L Performed By: #### CDP, PT, CP, LIP, TROPI #### [facility] [address] [place] [address] Discovery Manager: Isaiah Robertson MD TROPONIN Collected: 12/25/2023 9:28 PM Status: F Source: [facility] TYPE CODE TESTS RESULT OUT OF RANGE REFERENCE UNITS LAB HSTROP(LOINC) Troponin, High Sens <6 0-14 ng/L Result Comment: High Sensiti vity Troponin values cannot be compared with other Troponin methodologies. Performed By: #### CDP, PT, CP, LIP, TROPI #### [facility] [address] [place] [address] Discovery Manager: Isaiah Robertson MD ALLERGIES DATE TYPE / CODE NAME / CODE REACTION SEVERITY SOURCE 03/09/2024 Drug Allergy/[id number] (SNOMED CT) No Known Allergies/[id number](RXNORM) Unknown [facility] ENCOUNTERS ADMIT/DISCHARGE ACCOUNT NUMBER ADMITTING ENCOUNTER CLASS LOCATION SOURCE 05/06/2024/05/06/19 [id number] Ambulatory Building:[facility] 03/09/2024/03/09/20 24 [id number] [facility] 02/04/2024/02/04/20 24 [id number] Ambulatory Building:[facility] 01/03/2024/01/03/20 24 [id number] Ambulatory Building:[facility] 12/25/2023/12/27/19 24 [id number] DAVE GUEVARA Inpatient Encounter Building:2 Room: 0237Bed: 01 [facility] 12/25/2023/12/25/19 24 [id number] Emergency Building:[place] Room: 01ABed: 01A [facility] 10/24/2023/10/24/19 24 [id number] Ambulatory Building:[facility] EPIC PAYERS ENCOUNTER GUARANTOR PAYER SUBSCRIBER SOURCE 05/06/2024 LADAN TAVERAB: [place], [place] [address]Iix: (HP) Primary Insurance:[facility] MEDICAIDPolicy Number: [id number] Date:2018-02-23 LADAN TAVERAB: [id number] [place] [address] [facility] EPIC 03/09/2024 Corporate [id number] [place], [place] [address]Yxe: (HP) Primary Insurance:[place] MedicaidPolicy Number: [id number] Date:[id number] [place] [address]ZP: Ladan TaveraB: [id number] [address] [address]Rwj: (HP) [facility] 03/09/2024 Secondary Insurance:Self PayPolicy Number: Effective Date:[facility]24-03-09 [facility]24 LADAN TAVERAB: [place], [place] [address]Umu: (HP) Primary Insurance:[facility] MEDICAIDPolicy Number: [id number] Date:2018-02-23 LADAN TAVERAB: [id number] [place] [address] [facility] EPIC 01/03/2024 LADAN TAVERAB: [place], [place] [address]Qsx: (HP) Primary Insurance:[employer] MEDICAIDPolicy Number: [id number] Date:2018-02-23 LADAN TAVERAB: [id number] [place] [address] [facility] EPIC 12/25/2023 LADAN TAVERAB: [place], [place] [address]Xht: (HP) Primary Insurance:[facility] PLANPolicy Number: [id number] Date:2018-02-23[address] [place] [address]NA: LADAN TAVERAB: [id number] [place], [place] [address]Lfo: (HP) [facility] 12/25/2023 LADAN TAVERAB: [place], [place] [address]Aia: (HP) Primary Insurance:GENERIC AUTO INSURANCEPolicy Number: [id number] Date:2023-12-25 LADAN TAVERAB: [id number] [place], [place] [address]Ymt: (HP) [facility] 12/25/2023 Secondary Insurance:[facility] PLANPolicy Number: [id number] Date:2018-02-23[address] [place] [address]XQ: LADAN TAVERAB: [id number] [place], [place] [address]Ehs: (HP) [facility] 10/24/2023 LADAN TAVERAB: [place], [place] [address]Cwj: (HP) Primary Insurance:[employer] MEDICAIDPolicy Number: [id number] Date:2018-02-23 LADAN TAVERAB: [id number] [place] [address] [facility] EPIC
--- OUTSIDE RECORDS SUMMARY | 2024-06-11 05:15 | XMS_ITS ---
Author Organization [facility] Address [address] [address] Care Team Providers Care Protein Specialist Name Role Phone Quincy Walden Primary Care Provider [phone] REASON FOR VISIT ATIYA SHANELL ORELLANA R/S FROM 02/18 Social History Sex Assigned At : Social History Observation Description Sex Assigned At Female Encounters Encounter Location Date Provider Diagnosis [address] [place] [address] 2024 Quincy Walden Plan Of Treatment Next Appt Details Provider Name:Quincy Walden, 10/22/2024 12:30:00 PM, [address] [place] [address], [phone], Progress Notes * BERTRAM JOHNSON SDOB:[birth year] (34 yo F)Acc No.[id number]:06/11/2024 Behavioral Health Patient: BERTRAM ARGUELLO Provider: JEANCARLOS Hurtado :1990 A ge:34 Y S ex:Female Date:06/11/2024 Address:[address] [place], [place] [id number] Subjective: * Chief Complaints: * 1 . ATIYA SHANELL ORELLANA R/S FROM 02/18. * Medical History: Objective: * Vitals: Assessment: Plan: * Treatment: * Images: * Electronic signature of JEANCARLOS Bal on 08/18/2024 at 04:38 PM EDT Sign off status: Pending * Provider: JEANCARLOS Hurtado Date: 0 06/11/2024 Generated for Sami santoyo/Haider/Moe on: 0 08/18/2024 04:38 PM EDT
--- OUTSIDE RECORDS SUMMARY | 2024-07-16 05:30 | XMS_ITS ---
Author Organization [facility] vices Address [address] [place] [id number] Care Team Providers Care Senior Case Manager Name Role Phone Kelby Blackburn Unavailable [phone] Linnea Low Unavailable [phone] REASON FOR VISIT CANCEL- EVENTS DIRECTOR Comp Exam Encounters Encounter Location Date Provider Diagnosis [facility] [address] [place], [place] [id number] 07/16/2024 Linnea Low Plan Of Treatment No Information Progress Notes * Ladan LOPEZ SDOB:[birth year] (34 yo F)Acc No.[id number]:07/16/2024 Patient: [place] Ladan MONTEIRO Harper Provider: Iftikhar Low DDS :1990 A ge:34 Y S ex:Female Date:07/16/2024 Address:[address] [place], [address] [facility] Subjective: * Chief Complaints: * 1 . CANCEL- EVENTS DIRECTOR Comp Exam. * Medical History: Objective: * Vitals: Assessment: Plan: * Treatment: * Billing Information: * Visit Code: * Procedure Codes: * Electronic signature of Penny Low DDS on 08/18/2024 at 04:38 PM EDT Sign off status: Pending * Provider: Iftikhar Low DDS Date: 07/16/2024 Generated for Sami santoyo/Haider/eTevetteitting on: 08/18/2024 04:38 PM EDT
--- OUTSIDE RECORDS SUMMARY | 2024-07-16 05:30 | XMS_ITS ---
Author Organization [facility] Address [address] [place], [place] [address]J[place] [address] Care Team Providers Care Visually Impaired Teacher Name Role Phone Kelby Blackburn Unavailable [phone] REASON FOR VISIT VICE PRESIDENT PLANNING Comp Exam Encounters Encounter Location Date Provider Diagnosis [facility] [address] [place], [place] [id number] 07/16/2024 Kelby Blackburn Plan Of Treatment No Information Progress Notes * Ladan LOPEZ SDOB:[birth year] (34 yo F)Acc No.[id number]:07/16/2024 Patient: [place] MONTEIRO Ladan S Provider: Bryce Blackburn DDS :1990 A ge:34 Y S ex:Female Date:07/16/2024 [address] Subjective: * Chief Complaints: * 1 . VICE PRESIDENT PLANNING Comp Exam. * Medical History: Objective: * Vitals: Assessment: Plan: * Treatment: * Billing Information: * Visit Code: * Procedure Codes: * Electronic signature of Tereza Blackburn DDS on 08/18/2024 at 04:38 PM EDT Sign off status: Pending * Provider: Bryce Blackburn DDS Date: 07/16/2024 Generated for Sami santoyo/Haider/Martaitting on: 08/18/2024 04:38 PM EDT
--- OUTSIDE RECORDS SUMMARY | 2024-08-18 16:38 | XMS_ITS | Referral Summary ---
Author Organization [facility] Address [address] [place] [address] Care Team Providers Care Assistant Professor Of Business Name Role Phone Unavailable Primary Care Provider Unavailabl e Social History Tobacco Use Types Packs/Day Years Used Date Smoking Tobacco: Never Assessed [place] Safety & Environment Answer Date Rec orded Fear of Current or Ex-Partner Not on file Emotionally Abused Not on file 05/17/2023 Physically Abused Not on file 05/17/2023 Sexually Abused Not on file 05/17/2023 Physically or Sexually Abused Not on file Sex and Gender Information Value Date Recorded Sex Assigned at Not on file Gender Identity Not on file Sexual Orientation Not on file Plan of Treatment Not on file
--- OUTSIDE RECORDS SUMMARY | 2024-08-18 16:38 | XMS_ITS | Clinical Summary ---
Author Organization [facility] Address [address] [place] [address] Care Team Providers Care High School Coach Name Role Phone Unavailable Primary Care Provider [...]
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
--- OUTSIDE RECORDS SUMMARY | 2024-08-18 16:38 | XMS_ITS | Patient Health Record ---
Author Organization [facility] Address [address] [place], [place] [id number] Care Team Providers Care Char Puller Name Role Phone Kelby Blackburn Unavailable [phone] Linnea Low Unavailable [phone] Reason For Referral No Information Plan Of Treatment No Information Insurance Providers Payer Name Payer Address Payer Phone Subscriber Number Group Number Insured Name Patient Relationship to Insured Coverage Start Date Coverage End Date [facility] [address] [place] [address] [id number] Ladan Lopez Self - patient is the insured 4 Medicaid [facility] [address] [place] [address] [id number] Ladan Lopez Self - patient is the insured
--- OUTSIDE RECORDS SUMMARY | 2024-08-18 16:38 | XMS_ITS | Encounter Summary ---
Author Organization [facility] Address [address] [place] [address] Care Team Providers Care Director Of Anesthesia Services Name Role Phone Lonny Le MD Primary Care Provider [phone] Lonny Le MD Unavailable Reason for Visit * Reason Comments Med Refill Encounter Details Date Type Department Care Team (Late st Contact Info) Description 08/03/2023 [facility]ill [facility] [address] [place] [address] Lonny Le MD [address] [place] [phone] Migraine without aura, not intractable, without status migrainosus (CMS/HCC) Social History Tobacco Use Types Packs/Day Years Used Date Smoking Tobacco: Never Smokeless Tobacco: Never Humiliation, Afraid, Rape, and Kick questionnair e Answer Date Recorded Within the last year, have y ou been afraid of your partner or ex-partner? No 04/02/2023 Within the last year, have y ou been humiliated or emotionally abused in other ways by your partner or ex-partner? No Within the last year, have y ou been kicked, hit, slapped, or otherwise physically hurt by your partner or ex-partner? No 04/02/2023 Within the last year, have y ou been raped or forced to have any kind of sexual activity by your partner or ex-partner? No 04/02/2023 Social Connection and Isolation Panel [NHANES] A nswer Date Recorded In a typical week, how many times do you talk on the phone with family, friends, or neighbors? Twice a week 04/02/2023 How often do you get together with friends or re latives? Once a week 04/02/2023 How often do you attend congregation or synagogue serv ices? Never 04/02/2023 Do you belong to any clubs o r organizations such as congregation groups, unions, fraternal or athletic groups, or school groups? No 04/02/2023 How often do you attend meet ings of the clubs or organizations you belong to? Never 04/02/2023 Are you , , di vorced, , never , or living with a partner? 04/02/2023 AUDIT-C Answer Date Recorded Q1: How often do you have a drink containing alcohol? Never 04/02/2023 Q2: How many drinks containi ng alcohol do you have on a typical day when you are drinking? Patient does not drink Q3: How often do you have si x or more drinks on one occasion? Never 04/02/2023 Overall Financial Resource Strain (CARDIA) Answe r Date Recorded How hard is it for you to pa y for the very basics like food, housing, medical care, and heating? Not hard at all 04/02/2023 PHQ-2 Answer Date Recorded Patient Health Questionnaire-2 Score 3 04/19/2023 [facility] - Occupational Stress Questionnaire Answer Date Recorded Do you feel stress - tense, restless, nervous, or anxious, or unable to sleep at night because your mind is troubled all the time - these days? Very much 04/02/2023 Exercise Vital Sign Answer Date Recorde d On average, how many days pe r week do you engage in moderate to strenuous exercise (like a brisk walk)? 2 days 04/02/2023 On average, how many minutes do you engage in exercise at this level? 20 min 04/02/2023 Hunger Vital Sign Answer Date Recorded Within the past 12 months, y ou worried that your food would run out before you got the money to buy more. Never true 04/02/19 24 Within the past 12 months, t he food you bought just didn't last and you didn't have money to get more. Never true 04/02/2023 PRAPARE - Transportation Answer Date Re corded In the past 12 months, has l ack of transportation kept you from medical appointments or from getting medications? No 10/2023 In the past 12 months, has l ack of transportation kept you from meetings, work, or from getting things needed for daily living? No 04/02/2023 Housing Stability Vital Sign Answer Valeriy e Recorded In the last 12 months, was t here a time when you were not able to pay the mortgage or rent on time? No 04/02/2023 In the last 12 months, how many places have you lived? 1 04/02/2023 In the last 12 months, was t here a time when you did not have a steady place to sleep or slept in a chcf (including now)? No 04/02/2023 Comments No Sex and Gender Information Value Date Recorded Sex Assigned at Female 02/03/2024 3:00 PM EST Legal Sex Female 6:54 PM EDT Gender Identity Female 02/03/2024 3:00 PM EST Sexual Orientation Whitaker 02/03/2024 3: 00 PM EST documented as of this encounter Plan of Treatment Upcoming Encounters Date Type Department Care Team (Late st Contact Info) Description 09/02/2024 1:40 PM EDT Office Visit [facility] [address] [place] [address] [place] [phone] Grayson Obrien, [address] [place] [address] [place] [address] 02/16/2025 11:00 AM EST Office Visit [facility] [address] [place] [address] [place] [phone] Grayson Obiren, [facility] [place], [place] [id number] documented as of this encounter Visit Diagnoses Diagnosis Migraine without aura, not intractable, without status migrainosus (CMS/HCC) documented in this encounter Additional Health Concerns Assessment Noted Time PHQ-9 Depression Total Score: 11 024 2:51 PM EST documented as of this encounter Care Teams Director Of Anesthesia Services Relationship Specialty Start Date End Date Lonny eL MD [address] [place] [phone] PCP - General Family Medicine 04/19/23 Lonny Le MD [address] [place] [phone] PCP - [facility] 06/25/23 documented as of this encounter
--- OUTSIDE RECORDS SUMMARY | 2024-08-18 16:38 | XMS_ITS | Encounter Summary ---
Author Organization [facility] Address [address] [place] [address] Care Team Providers Care Waterproofer Name Role Phone Lonny Le MD Primary Care Provider [phone] Lonyn Le MD Primary Care Provider [phone] Lonny Le MD Unavailable Encounter Details Date Type Department Care Team (Late st Contact Info) Description 04/18/2023 Orders Only [facility] [address] [place] [address] Lonny Le MD [address] [place] [phone] Social History Tobacco Use Types Packs/Day Years [...] week 04/02/2023 How often do you attend moravian or episcopal serv ices? Never 04/02/2023 Do you belong to any clubs o r organizations such as moravian groups, unions, fraternal or athletic groups, or [...] Recorded Patient Health Questionnaire-2 Score 3 04/19/2023 [facility] - Occupational Stress Questionnaire Answer Date [...] place to sleep or slept in a usp (including now)? No 04/02/2023 Comments No Sex and Gender Information Value Date Recorded Sex Assigned at Female 02/03/2024 3:00 PM EST Legal Sex Female 6:54 PM EDT Gender Identity Female 02/03/2024 3:00 PM EST Sexual Orientation Whitaker 02/03/2024 3: 00 PM EST documented as of this encounter Functional Status * Over the past 2 weeks, how often have you been bothered by any of the following problems? Question Answer Date of Assessment Author Little interest or pleasure in doing things Several days 04/19/2023 2:51 PM NEGRA CREWS Feeling down, depressed, or hopeless More than half the days 04/19/2023 2:51 PM JORGE CREWS Patient Health Questionnaire-2 Score 3 04/19/2023 2:51 PM JORGE CREWS * Question Answer Date of Assessment Author Trouble falling or staying asleep, or sleeping too much More than half the days 04/19/2023 2:51 PM JORGE CREWS Feeling tired or having little energy Nearly every day 04/19/2023 2:51 PM JORGE CREWS Poor appetite or overeating More than etienne lf the days 04/19/2023 2:51 PM JORGE CREWS Feeling bad about yourself - or that you are a failure or have let yourself or your family down Several days 04/19/2023 2:51 PM JORGE CREWS Trouble concentrating on things, such as reading the newspaper or watching television Not at all 04/19/2023 2:51 PM EST JORGE MENDOSA Moving or speaking so slowly that other people could have noticed? Or the opposite - being so fidgety or restless that you have been moving around a lot more than usual. Not at all 04/19/2023 2:51 PM EST JORGE MENDOSA Thoughts that you would be better off or hurting yourself in some way Not at all 04/19/2023 2:51 PM JORGE CREWS Patient Health Questionnaire-9 Score 11 04/19/2023 2:51 PM EST JORGE MENDOSA documented as of this encounter Plan of Treatment Upcoming Encounters Date Type Department Care Team (Late st Contact Info) Description 09/02/2024 1:40 PM EDT Office Visit [facility] [address] [facility] [address] [place] [phone] Grayson Obrien, DO [address] [facility] [address] [place], [place] [id number] 02/16/2025 11:00 AM EST Office Visit [facility] [address] [facility] [place] [address] Grayson Obrien, DO [address] [facility] [address] [place], [place] [id number] documented as of this encounter Visit Diagnoses Not on filedocumented in this encounter Care Teams Waterproofer Relationship Specialty Start Date End Date Lonny Le MD PCP - General Family Medicine 03/08/23 04/18/23 Lonny Le MD [address] [place] [address] PCP - General Family Medicine 04/19/23 Lonny Le MD [address] [place] [address] [facility] 06/25/23 documented as of this encounter
--- OUTSIDE RECORDS SUMMARY | 2024-08-18 16:38 | XMS_ITS | Encounter Summary ---
Author Organization [facility] Address [address] [place] [address] Care Team Providers Care Electrostatic Paint Operator Name Role Phone Lonny Le MD Primary Care Provider [phone] Lonny Le MD Primary Care Provider [phone] Lonny Le MD Unavailable Reason for Visit * Reason Onset Date Comments Med Refill 03/24/2023 Encounter Details Date Type Department Care Team (Late Contact Info) Description 03/24/2023 [facility]ill [facility] [address] [place] [address] Lonny Le MD [address] [place] [address] Social History Tobacco Use Types Packs/Day Years Used Date Smoking Tobacco: Never Smokeless Tobacco: Never Comments Unknown Sex and Gender Information Value Date Recorded Sex Assigned at Female 02/03/2024 3:00 PM EST Legal Sex Female 6:54 PM EDT Gender Identity Female 02/03/2024 3:00 PM EST Sexual Orientation Whitaker 02/03/2024 3: 00 PM EST documented as of this encounter Plan of Treatment Upcoming Encounters Date Type Department Care Team (Late Contact Info) Description 09/02/2024 1:40 PM EDT Office Visit [facility] [address] [place] [address] Grayson Obrien DO [address] [place], [place] [id number] 02/16/2025 11:00 AM EST Office Visit [facility] [address] [place] [phone] Grayson Obrien, [address] [facility] [address] [place], [place] [id number] documented as of this encounter Visit Diagnoses Not on filedocumented in this encounter Care Teams Electrostatic Paint Operator Relationship Specialty Start Date End Date Lonny Le MD PCP - General Family Medicine 03/08/23 04/18/23 Lonny Le MD [address] [place] [phone] PCP - General Family [facility] 04/19/23 Lonny Le MD [address] [place] [address] PCP - [facility] 06/25/23 documented as of this encounter
--- OUTSIDE RECORDS SUMMARY | 2024-08-18 16:38 | XMS_ITS | Encounter Summary ---
Author Organization [facility] Address [address] [place] [address] Care Team Providers Care Industrial Editor Name Role Phone Lonny Le MD Primary Care Provider [phone] Lonny Le MD Unavailable Encounter Details Date Type Department Care Team (Late st Contact Info) Description 12/26/2023 Orders Only [facility] [address] [place] [phone] Lonny Le MD [address] [place] [address] Social History Tobacco Use Types Packs/Day Years [...] week 04/02/2023 How often do you attend buddhist or rastafarian serv ices? Never 04/02/2023 Do you belong to any clubs o r organizations such as buddhist groups, unions, fraternal or athletic groups, or [...] Recorded Patient Health Questionnaire-2 Score 3 04/19/2023 [facility] - Occupational Stress Questionnaire Answer Date Recorded [...] place to sleep or slept in a fci (including now)? No 04/02/2023 Comments No Sex [...] 09/02/2024 1:40 PM EDT Office Visit [facility] [address] [facility] [place] [phone] Grayson Obrien, [address] [place] [address] 02/16/2025 11:00 AM EST Office Visit [facility] [address] [facility] [place] [address] Grayson Obrien, DO [address] [place] [address] Dr [place], [place] [id number] documented as of this encounter Procedures Procedure Name Priority Date/Time Associated Diagnosis Comments XR CHEST 1 VIEW Routine 12/26/2023 9:17 AM EDT documented in this encounter Results * XR chest 1 view (12/26/2023 9:17 AM EDT) Anatomical Region Laterality Modality Chest Radiographic Juliette ging Lonny Le MD IMG XR PROCEDURES Final Result documented in this encounter Visit Diagnoses Not on filedocumented in this encounter Additional Health Concerns Assessment Noted Time PHQ-9 Depression Total Score: 11 024 2:51 PM EST documented as of this encounter Care Teams Industrial Editor Relationship Specialty Start Date End Date Lonny Le MD [address] [place] [address] PCP - General Family Medicine 04/19/23 Lonny Le MD [address] [place] [address] PCP - [facility] 06/25/23 documented as of this encounter
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
--- OUTSIDE RECORDS SUMMARY | 2024-08-18 16:39 | XMS_ITS | Encounter Summary ---
Author Organization [facility] Address [address] [place] [address] Care Team Providers Care Clinical Trial Associate Name Role Phone Lonny Le MD Primary Care Provider [phone] Lonny Le MD Primary Care Provider [phone] Lonny Le MD Unavailable Encounter Details Date Type Department Care Team (Late Contact Info) Description 03/08/2023 Abstract [facility] [address] [place] [address] Lonny Le MD [address] [place] [address] Social History Tobacco Use Types Packs/Day Years [...] 09/02/2024 1:40 PM EDT Office Visit [facility] [address] [place] [address] Grayson Obrien DO [address] [place], [place] [phone] 02/16/2025 11:00 AM EST Office Visit [facility] [address] [place] [address] Grayson Obrien, DO [address] [facility] [address] [place], [place] [phone] documented as of this encounter Visit Diagnoses Not on filedocumented in this encounter Care Teams Clinical Trial Associate Relationship Specialty Start Date End Date Lonny Le MD PCP - General Family Medicine 03/08/23 04/18/23 Lonny Le MD [address] [place] [phone] PCP - General Family Medicine 04/19/23 Lonny Le MD [address] [place] [address] PCP - [facility] 06/25/23 documented as of this encounter
--- OUTSIDE RECORDS SUMMARY | 2024-08-18 16:39 | XMS_ITS | Clinical Summary ---
Author Organization [facility] Address [id number] [place] [address] Care Team Providers Care Java User Interface Developer Name Role Phone Lonny Le MD Primary Care Provider [phone] Allergies No known active allergies Medications * This document contains information received from the source organization and may not represent a complete record from that organization. topiramate (TOPAMAX) 25 mg tablet Take 25 mg by mouth 2 (two) times a day. Active metoprolol succinate XL (TOPROL-XL) 25 mg 24 hr tablet Take 25 mg by mouth daily. Active FLUoxetine (PROzac) 20 mg capsule Take 20 mg by mouth daily. Active Active Problems Problem Noted Date Diagnosed Date Posttraumatic stress disorder 02/09/2017 Severe recurrent major depre ssion without psychotic features 02/08/2017 Migraine 02/08/2017 Social History Tobacco Use Types Packs/Day Years Used Date Smoking Tobacco: Never Smokeless Tobacco: Never Alcohol Use Standard Drinks/Week Comments No 0 (1 standard drink = 0.6 oz pur e alcohol) Childcare Answer Date Recorded Childcare Unknown 09/04/2018 Employment Answer Date Recorded Employment Unknown 09/04/2018 Purpose - Life Answer Date Recorded Purpose and direction in life Unknown Comments No Sex and Gender Information Value Date Recorded Sex Assigned at Not on file Legal Sex Female 11:38 AM EDT Gender Identity Not on file Sexual Orientation Not on file Last Filed Vital Signs Vital Sign Reading Time Taken Comments Blood Pressure 119/68 02/12/2017 8:02 AM EST Pulse 74 02/12/2017 8:02 AM EST Temperature 36 C (96.8 F) 02/12/2017 8:02 AM EST Respiratory Rate 15 02/12/2017 8:02 AM EST Oxygen Saturation 99% 02/07/2017 2:15 PM EST Inhaled Oxygen Concentration - - Weight 95.3 kg (210 lb) 02/07/2017 5:20 PM EST Height 162.6 cm (5' 4 ) 02/07/2017 5:20 PM EST Body Mass Index 36.05 02/07/2017 5:20 PM EST Plan of Treatment Not on file Medical Devices Not on file Insurance [employer] Care Teams Java User Interface Developer Relationship Specialty Start Date End Date Lonny Le MD PCP - General 02/03/17
--- OUTSIDE RECORDS SUMMARY | 2024-08-18 16:39 | XMS_ITS | Patient Health Record ---
Author Organization [facility] es Address [address] [place] [address] Care Team Providers Care Block Breaker Name Role Phone Quincy Walden Primary Care Provider [phone] Zulma Lerner Unavailable [phone] Tanya Watt Unavailable [phone] Allergies No Known Allergies Reason For Referral No Information Medications Medication SIG (Take, Route, Frequency, Duration) Notes Start Date End Date Status Topiramate 100 MG 1 tablet Orally BID Active lamoTRIgine 200 MG TAKE 1 TABLET BY JOHANNE TH EVERY DAY FOR 30 DAYS for 30 days Active Estrace 1 MG 1 tablet Orally Once a day Active traZODone HCl 100 MG TAKE 1/2-1 TABLET B Y MOUTH AT BEDTIME for 30 days Active [place] Carbonate ER 450 MG TAKE 1 TABLE T BY MOUTH EVERY DAY AT BEDTIME FOR 30 DAYS for 30 Active QUEtiapine Fumarate ER 400 MG take 2 tablets Orally Once a day for 30 days Active clonazePAM 1 MG take 1 AND 1/2 table ts Orally Once a day for 30 days F41.1 07/23/2024 Active Prazosin HCl 5 MG TAKE 1 CAPSULE BY MO UTH EVERYDAY AT BEDTIME for 30 Active Social History Tobacco Use: Social History Observation Description Date Details (start date - stop date) Never Smoker NA - NA Sex Assigned At : Social History Observation Description Sex Assigned At Female Tobacco Screen: Question Answer Notes Are you a: never smoker Alcohol Screening: Question Answer Notes Did you have a drink containing alcohol in the p ast year? No Points 0 Interpretation Negative Problems Problem Type SNOMED Code ICD Code Onset Dates Problem Status W/U Status Risk Notes Problem PTSD (post-traumat ic stress disorder) (F43.10) Active confirmed Problem Bipolar affective disorder, currently depressed, mild (154654183) Bipolar 1 disorder, depressed, mild (F31.31) Active confirmed Vital Signs Heart Rate 67 /min 07/23/2024 Oximetry 97 % 07/23/2024 Blood pressure diastolic 83 mm Hg 07/23/2024 Height 65 in 07/23/2024 Blood pressure systolic 121 mm Hg 07/23/2024 Weight 195.2 lbs 07/23/2024 BMI 32.48 kg/m2 07/23/2024 Encounters Encounter Location Date Provider Diagnosis [facility] [address] [place] [address] 07/23/2024 Quincy Walden Bipolar 1 disorder, depressed, mild F31.31 [facility] [address] [place] [address] 11/07/2023 Zulma Lerner [facility] [address] [place] [address] 11/09/2023 Zulma Lerner Bipolar 1 disorder, depressed, mild F31.31 Assessments Encounter Date Diagnosis (ICD Code) Assessment Notes Treatment Notes Treatment Clinical Notes Section Notes 11/09/2023 Bipolar 1 disorder, depressed, mild (ICD-10 - F31.31) 07/23/2024 Bipolar 1 disorder, depressed, mild (ICD-10 - F31.31) Patient will continue current treatment plan. Patient verbally acknowledges understanding instructions including medication education and has no further questions comments or concerns at this time. . Follow in 1 Month . Recommended treatment for Bipolar disorder includes FDA approved and OFF label medications: second generation antipsychotics and mood stabilizers. Discussed life threatening side effect of Lamotrigine. Pt is to monitor for new skin rashes or sensation of a sunburn or itchiness or redness, mouth sores or sores in mucus membranes, and call provider immediately and or go to ER, and stop the medication. Second generation antipsychotic medications can cause headache, drowsiness, agitation, dizziness, nausea, or extrapyramidal symptoms such as tremors, muscle spasms, slowness of movement or jerking of muscles. . Stable . The patient verbalizes understanding with all questions answered thoroughly and is in agreement with treatment plan. . Continue current treatment. Call for problems . GOALS: . Maintain medication regimen . _Improve mood stability . _Improve anxiety control . _Improve social and interpersonal functioning . Patient/Guardian will call sooner if symptoms worsen. Patient understands to go to ER if needed if symptoms become severe. . Crisis Intervention plan was discussed and agreed upon. Patient/Guardian will call 911 in case of emergency. Emergency contact information was provided to the patient/guardian. . Pharmacological management: . Alternative medication plans were discussed with the patient/guardian. All relevant side effects and potential adverse effects were discussed with the patient/guardian. Standard cautions and potential benefits were discussed. Patient/Guardian consented to the start/continuation of the treatment. Plan Of Treatment Next Appt Details Provider Name:Quincy Walden, 10/22/2024 12:30:00 PM, [address] [place] [address], [phone], Insurance Providers Payer Name Payer Address Payer Phone Subscriber Number Group Number Insured Name Patient Relationship to Insured Coverage Start Date Coverage End Date [employer] [place] [employer] [address] [place] [address] [id number] BERTRAM JOHNSON Self - patient is the insured [facility] [address] [place] [address] [phone] [id number] BERTRAM JOHNSON Self - patient is the insured 3 [facility] [employer] [address] CLAIMS DEPT [facility] [place] [phone] [id number] BERTRAM JOHNSON Self - patient is the insured 0 3 [employer] after [employer] [address] [place] [address] [id number] BERTRAM JOHNSON Self - patient is the insured 1 3 Medical (General) History Medical History History ICD Code bipolar Surgical History Surgery Date(Month/Year) tonsillectomy cholecystectomy appendectomy partial hysterectomy
[2024-08-18 16:43] VITALS: BP 123/97; PULSE 96; TEMP 36.8; O2SAT 96; BMI 30.9
--- NOTE | 2024-08-18 16:52 | ED.GENADUL1 ---
HPI HPI - General Adult General Stated complaint: FINGERS & ARMS ARE BLUE Time Seen by Provider: 08/18/24 16:37 Mode of arrival: walk-in History of Present Illness HPI narrative: 34-year-old female presents because her fingers turn blue. She states it started today while she was sitting on a couch. She denies using any dyes or having new blue jeans. She states this has never happened to her previously. Related Data Home Medications ?Medication ?Instructions ?Recorded ?Confirmed albuterol sulfate 90 mcg/actuation 2 inh inhalation Q4H PRN shortness 08/18/24 08/18/24 aerosol inhaler of breath or wheezing zwudxfnmfw-fqcelyqhbthtv-veyqnmhh 1 tab PO Q4H PRN headache 08/18/24 08/18/24 50 mg-325 mg-40 mg tablet clonazepam 1 mg tablet 1.5 mg PO DAILY 08/18/24 08/18/24 dextroamphetamine-amphetamine 20 20 mg PO BID 08/18/24 08/18/24 mg tablet estradiol 1 mg tablet 1 mg PO DAILY 08/18/24 08/18/24 lamotrigine 200 mg tablet 200 mg PO DAILY 08/18/24 08/18/24 lithium carbonate 450 mg 450 mg PO DAILY 08/18/24 08/18/24 tablet,extended release prazosin 5 mg capsule 5 mg PO DAILY 08/18/24 08/18/24 quetiapine 400 mg tablet,extended 400 mg PO DAILY 08/18/24 08/18/24 release 24 hr trazodone 100 mg tablet 100 mg PO DAILY 08/18/24 08/18/24 Allergies Allergy/AdvReac Type Severity Reaction Status Date / Time No Known Drug Allergies Allergy Verified 08/18/24 16:35 Review of Systems ROS Narrative A ten point review of systems is negative except as noted above. PFSH PFSH Social History Little interest or pleasure in doing things: not at all Feeling down, depressed, or hopeless: not at all Exam Narrative Exam Narrative: Nurses note and vital signs reviewed and patient is not hypoxic. General: The patient appears well and in no apparent distress. Patient is resting comfortably on cart. Skin: Warm, dry, no pallor noted. There is no rash noted. Her fingers extending onto the hands have a dark blue discoloration. This discoloration easily wiped off with alcohol wipes. Subsequently the alcohol wipe was blue and her skin was normal pink color. Her fingers are warm to touch. Head: Normocephalic, atraumatic Eye: Normal conjunctiva, no drainage Ears, Nose, Mouth, and Throat: oral mucosa is moist. Nares patent. Cardiovascular: Regular Rate and Rhythm Respiratory: Patient is in no distress, no accessory muscle use, lungs are clear to auscultation, no wheezing, rales or rhonchi Back: non-tender GI: Soft and nontender Musculoskeletal: The patient has no evidence of calf tenderness, no pitting edema, symmetrical pulses noted bilaterally Neurological: Awake and alert Psychiatric: Cooperative Constitutional Vital Signs, click to edit/add: Last Vital Signs Temp 98.2 F 08/18/24 16:43 Pulse 96 H 08/18/24 16:43 Resp 20 08/18/24 16:43 BP 123/97 H 08/18/24 16:43 Pulse Ox 96 08/18/24 16:43 O2 Del Method Room Air 08/18/24 16:43 Course Vital Signs Vital signs: Vital Signs Temperature 98.2 F 08/18/24 16:43 Pulse Rate 96 H 08/18/24 16:43 Respiratory Rate 20 08/18/24 16:43 Blood Pressure 123/97 H 08/18/24 16:43 Pulse Oximetry 96 08/18/24 16:43 Oxygen Delivery Method Room Air 08/18/24 16:43 Temperature 98.2 F 08/18/24 16:43 Pulse Rate 96 H 08/18/24 16:43 Respiratory Rate 20 08/18/24 16:43 Blood Pressure 123/97 H 08/18/24 16:43 Pulse Oximetry 96 08/18/24 16:43 Oxygen Delivery Method Room Air 08/18/24 16:43 Medical Decision Making MDM Narrative Medical decision making narrative: The blue discoloration has been cleaned off with alcohol and chlorhexidine. Her skin is now pink. I have no clinical suspicion of Raynaud's syndrome and she was reassured. She also asked for a work note. Differential Diagnosis Differential Diagnosis: Raynaud's syndrome, Skin discoloration from dye Discharge Plan Discharge Clinical Impression: Discoloration of skin Patient Disposition: Home, Self-Care Time of Disposition Decision: 16:52 Condition: Good Mode of Transportation: Private Vehicle Prescriptions / Home Meds: No Action albuterol sulfate 90 mcg/actuation HFA aerosol inhaler 2 inh INHALATION Q4H PRN (Reason: shortness of breath or wheezing) brggxkbilh-viknwaoujyrcb-qxkt 50-325-40 mg tablet 1 tab PO Q4H PRN (Reason: headache) clonazepam 1 mg tablet 1.5 mg PO DAILY dextroamphetamine-amphetamine 20 mg tablet 20 mg PO BID estradiol 1 mg tablet 1 mg PO DAILY lamotrigine 200 mg tablet 200 mg PO DAILY lithium carbonate 450 mg tablet extended release 450 mg PO DAILY prazosin 5 mg capsule 5 mg PO DAILY quetiapine 400 mg tablet extended release 24 hr 400 mg PO DAILY trazodone 100 mg tablet 100 mg PO DAILY Print Language: Afghan Instructions: Normal Exam (ED) Referrals: Lonny Le MD [Primary Care Provider, Family Practice] - 1 week
--- NOTE | 2024-08-18 16:52 | PC.NURSE ---
Blue coloring to right hand easily wipes off. Skin color is pink and warm to right hand and arm and pulses present.
== END 2024-08-18 16:59 | disposition home or self-care (01) ==
PROVIDERS: Emergency Provider Emergency Medicine; PCP Family Medicine
DX: R23.8 Other skin changes (principal)
CPT/HCPCS: 99281

== ENCOUNTER 2024-09-05 14:30 | Outpatient (OUT) | payer OTHER, SELFPAY ==
--- OUTSIDE RECORDS SUMMARY | 2024-09-05 14:55 | XMS_ITS | CCD ---
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 [place] [address] Dr. Lukas Foote Glucose [Mass/Vol] 94 mg/dL Normal [facility] Comment on above: Performed By: #### C VDTBH #### [facility] [address] [address] [address] Lukas Foote HbA1c (Bld) [Mass fraction] 4.9 % Normal 4.5-6.2 [facility] Comment on above: Performed By: #### C VDTBH #### [facility] [address] [address] [address] Lukas Foote LIPID PROFILEon 12-15-2021 CHOL-HDL RATIO NORM SEE BELOW Normal [facility] Comment on above: Result Comment: 3.3 - 4.4 LOW RISK 4.4 - 7.1 AVERAGE RISK 7.1 - 11.0 MODERATE RISK >11.0 HIGH RISK Performed By: #### L IPID, TSH, CMP #### [facility] [address] [place] [address] Dr. Lukas Foote Cholesterol [Mass/Vol] 210 mg/dL Critically high <=200 [facility] Comment on above: Performed By: #### L IPID, TSH, CMP #### [facility] [address] [address] [address] Lukas Foote Cholesterol in HDL [Mass/Vol] 52 mg/dL Normal 40-60 [facility] Comment on above: Performed By: #### L IPID, TSH, CMP #### [facility] [address] [address] [address] Lukas Foote Cholesterol in LDL [Mass/Vol] 115.8 mg/dL Normal [facility] Comment on above: Performed By: #### L IPID, TSH, CMP #### [facility] [address] [address] [address] Lukas Foote Cholesterol.total/Cho lesterol in HDL [Mass ratio] 4.0 {ratio} Normal [facility] Comment on above: Performed By: #### L IPID, TSH, CMP #### [facility] [address] [place] [address] Dr. Lukas Foote HDL NORMAL > or = 60 mg/dl - LOW CARDIOVASCULAR RISK <40 mg/dl - HIGH CARDIOVASCULAR RISK Normal [facility] Comment on above: Performed By: #### L IPID, TSH, CMP #### [facility] [address] [address] [address] Lukas Foote LDL CALC NORMAL SEE BELOW Normal [facility] Comment on above: Result Comment: <100 mg/dl OPTIMAL 100 - 129 mg/dl NEAR OR ABOVE OPTIMAL 130 - 159 mg/dl BORDERLINE HIGH 160 - 189 mg/dl HIGH >190 mg/dl VERY HIGH Performed By: #### L IPID, TSH, CMP #### [facility] [address] [address] [address] Lukas Foote Triglyceride [Mass/Vol] 211 mg/dL Critically high <=150 [facility] Comment on above: Performed By: #### L IPID, TSH, CMP #### [facility] [address] [address] [address] Lukas Foote VLDL CALC 42.2 mg/dL Normal [facility] Comment on above: Performed By: #### L IPID, TSH, CMP #### [facility] [address] [place] [address] Dr. Lukas Foote PROF 14(COMP METB)on 022 Albumin [Mass/Vol] 3.8 g/dL Normal 3.4-5.0 [facility] Comment on above: Performed By: #### L IPID, TSH, CMP #### [facility] [address] [place] [address] Dr. Lukas Foote Albumin/Globulin [Mass ratio] 1.1 {ratio} Normal [facility] Comment on above: Performed By: #### L IPID, TSH, CMP #### [facility] [address] [address] [address] Lukas Foote ALP [Catalytic activity/Vol] 94 U/L Normal 46-116 [facility] Comment on above: Performed By: #### L IPID, TSH, CMP #### [facility] [address] [place] [address] Dr. Lukas Foote ALT [Catalytic activity/Vol] 21 U/L Normal 14-59 [facility] Comment on above: Performed By: #### L IPID, TSH, CMP #### [facility] [address] [place] [address] Dr. Lukas Foote Anion gap [Moles/Vol] 12.9 mmol/L Normal [facility] Comment on above: Performed By: #### L IPID, TSH, CMP #### [facility] [address] [address] [address] Lukas Foote AST [Catalytic activity/Vol] 13 U/L Critically low 15-37 [facility] Comment on above: Performed By: #### L IPID, TSH, CMP #### [facility] [address] [address] [address] Lukas Foote Bilirubin [Mass/Vol] 0.2 mg/dL Normal 0.2-1.0 [facility] Comment on above: Performed By: #### L IPID, TSH, CMP #### [facility] [address] [place] [address] Dr. Lukas Foote Calcium [Mass/Vol] 9.0 mg/dL Normal 8.5-10.1 [facility] Comment on above: Performed By: #### L IPID, TSH, CMP #### [facility] [address] [place] [address] Dr. Lukas Foote Chloride [Moles/Vol] 105 mmol/L Normal 98-107 [facility] Comment on above: Performed By: #### L IPID, TSH, CMP #### [facility] [address] [place] [address] Dr. Lukas Foote CO2 [Moles/Vol] 25.9 mmol/L Normal 21.0-32.[address] [facility] Comment on above: Performed By: #### L IPID, TSH, CMP #### [facility] [address] [place] [address] Dr. Lukas Foote Creatinine [Mass/Vol] 1.17 mg/dL Critically high 0.55-1.02 [facility] Comment on above: Performed By: #### L IPID, TSH, CMP #### [facility] [address] [address] [address] Lukas Foote EGFR-AF MEXICAN >60 Normal >=[address] [facility] Comment on above: Performed By: #### L IPID, TSH, CMP #### [facility] [address] [address] [address] Lukas Foote EGFR-NON AF MEXICAN 53 mL/min/1.73m2 Critically low >=60 [facility] Comment on above: Performed By: #### L IPID, TSH, CMP #### [facility] [address] [address] [address] Lukas Foote Globulin (S) [Mass/Vol] 3.6 g/dL Normal [facility] Comment on above: Performed By: #### L IPID, TSH, CMP #### [facility] [address] [address] [address] Lukas Foote Glucose [Mass/Vol] 123 mg/dL Critically high 74-106 [facility] Comment on above: Performed By: #### L IPID, TSH, CMP #### [facility] [address] [place] [address] Dr. Lukas Foote Potassium [Moles/Vol] 3.8 mmol/L Normal 3.5-5.1 [facility] Comment on above: Performed By: #### L IPID, TSH, CMP #### [facility] [address] [address] [address] Lukas Foote Protein [Mass/Vol] 7.4 g/dL Normal 6.4-8.2 [facility] Comment on above: Performed By: #### L IPID, TSH, CMP #### [facility] [address] [address] [address] Lukas Foote Sodium [Moles/Vol] 140 mmol/L Normal 136-145 [facility] Comment on above: Performed By: #### L IPID, TSH, CMP #### [facility] [address] [address] [address] Lukas Foote Urea nitrogen [Mass/Vol] 14.0 mg/dL Normal 7.0-18.0 [facility] Comment on above: Performed By: #### L IPID, TSH, CMP #### [facility] [address] [address] [address] Lukas Foote Urea nitrogen/Creatinine [Mass ratio] 12.0 mg/mg Normal [facility] Comment on above: Performed By: #### L IPID, TSH, CMP #### [facility] [address] [place] [address] Dr. Lukas Foote TSHon 12-15-2021 TSH 2.488 uIU/mL Normal 0.358-3.740 [facility] Comment on above: Performed By: #### L IPID, TSH, CMP #### [facility] [address] [place] [address] Dr. Lukas Foote PAP ACOG PANEL 2: 30 to 65on 11-01-2021 . . Normal [facility] Comment on above: Result Comment: Perf ormed at: WB Performed By: #### [id number] #### [facility] [address] [place] [address] Dr. Lukas Foote Age Gdln ACOG Testing 30-65 Normal [facility] Comment on above: Performed By: #### [id number] #### [facility] [address] [place] [address] Dr. Lukas Foote DIAGNOSIS: Comment Normal [facility] Comment on above: Result Comment: NEGA TIVE FOR INTRAEPITHELIAL LESION OR MALIGNANCY. Performed at: WB Performed By: #### [id number] #### [facility] [address] [place] [address] Dr. Lukas Foote HPV Aptima Negative Normal Negative [facility] Comment on above: Result Comment: This nucleic acid amplification test detects fourteen high-risk HPV types (16,18,31,33,35,39,45,51,52,56,58,59,66,68) without differentiation. Performed at: =G Performed By: #### [id number] #### [facility] [address] [place] [address] Dr. Lukas Foote Methodology: Comment Normal [facility] Comment on above: Result Comment: This liquid based ThinPrep(R) pap test was screened with the use of an image guided system. Performed at: WB Performed By: #### 4 [id number] #### [facility] [address] [place] [address] Dr. Lukas Foote Note: Comment Normal [facility] Comment on above: Result Comment: The Pap smear is a screening test designed to aid in the detection of premalignant and malignant conditions of the uterine cervix. It is not a diagnostic procedure and should not be used as the sole means of detecting cervical cancer. Both false-positive and false-negative reports do occur. . Performed at: WB Performed By: #### [id number] #### [facility] [address] [place] [address] Dr. Lukas Foote Performed by: Comment Normal [facility] Comment on above: Result Comment: Darin Valencia, Woodyard Operator (ASCP) Performed at: WB Performed By: #### 4 [id number] #### [facility] [address] [place] [address] Dr. Lukas Foote Specimen adequacy: Comment Normal [facility] Comment on above: Result Comment: Sati sfactory for evaluation. No endocervical component is identified. Performed at: WB Performed By: #### [id number] #### [facility] [address] [place] [address] Dr. Lukas Foote Operative Reporton Operative Report [id number] #1.00CD:127 Normal [facility] Lab Reportson 05-30-2021 Lab Reports [id number] #1.00CD:127 Normal [facility] Covid-19 PCR (CVDTB)on SARS-CoV-2 (COVID-19) RNA JAYNA+probe Ql (Unsp spec) Not detected Normal NOT DETECTED [facility] Comment on above: Result Comment: This test is not yet approved or cleared by the [place] FDA. When there are no FDA-approved or cleared tests available, and other criteria are met, FDA can make tests available under an emergency access mechanism called an Emergency Use Authorization (EUA). The EUA for this test is supported by the [place] of Health and Human Service's (HHS's) declaration [...] consistent with SARS-CoV-2. Performed By: #### C [facility] #### [facility] [address] [place] [address] Dr. Lukas Foote Physician Orderon 05-19-2021 Physician Order [id number] #1.00CD:127 [facility] Formson 05-12-2021 Forms [id number] #1.00CD:127 [facility] Ambulatory Visit Summaryon 0 05-09-2021 Ambulatory Visit Summary LADAN JOHNSON Harper :1990 Visit Date:05/09/2021 Ambulatory Visit Instructions Your Diagnosis Nocturia Ureteral stricture Foreign body in bladder Your Care Team Attending Physician - ADRIANNA JEAN, Jack Chandler Primary Care Physician - LUCIEN JEAN, LONNY This Is Your Medications List Contact prescribing [...] Where: [facility] [address], [place] [phone] Medications What How Much When Why Instructions [...] keep your urine pale yellow. ? Take kxav-ujv-hyiomus or prescription medicines. ? Eat foods that are high in fiber, such as beans, whole grains, and fresh fruits and vegetables. ? Limit foods that are high in fat and processed sugars, such as fried or sweet fo (more content not included)... Normal [facility] Patient Educationon 05-09-19 Patient Education Urology Urinary [...] keep your urine pale yellow. ? Take wsio-nxv-samirjd or prescription medicines. ? Eat foods that are high in fiber, such as beans, whole grains, and fresh fruits and vegetables. ? Limit foods that are high in fat and processed sugars, such as fried or sweet foods. General instructions ? Take fbiq-mct-finhnsb and prescription medicines only as told by [...] muscles that help control urination. ? Take qmrx-ywf-qyowdkg and prescription medicines only as told by [...] 01/06/2010 Document Revised: 09/19/2018 Document Reviewed: 09/19/2018 [employer] Patient Education ? 2019 [employer] Malaika Abdul [facility] Urology Office/Clinic Noteon 05-09-2021 Urology Office/Clinic Note [...] Dr. Belcher surgery for Laparotomy and bilateral salpingo-oophorectom y. Patient states stent is not bothering her. [...] and record for this patient with Dr. Rodas. Will schedule Cysto, ureter, pos. stent removal Follow-up With When Contact Information ADRIANNA JEAN, Jack Chandler, [place] [facility] [address] [place] [phone] Additional Instructions: Will schedule Cysto, Ureter, pos. UD and stent removal Patient Education Urinary Frequency, Adult Neela Toribio, personally scribed for Dr. Rodas on 05/09/2021 13:47:28. . Documentation recorded by the chapito armendariz, accurately reflects the services(s) I performed and decisions made by me. Authenticated by Dr. Rodas on 05/09/2021 13:51:13. Problem List/Past Medical History [...] Diagnostic Results Tests Reviewed: Reviewed op report [facility] Comment on above: Result Comment: Elec tronically Signed By: Jack RODAS MD\.br\Date and Time Signed: 05/09/21 13:51 EST\.br\Electronically Co-Signed By: Neela Elise\.br\Date and Time Co-Signed: 05/09/21 13:48 EST Consultation Noteon 04-07-19 Consultation Note [id number]#1.00CD:127 [facility] Insurance Correspondence Off iceon 04-07-2021 Insurance Correspondence Office [id number] #1.00CD:127 [facility] Operative Reporton Operative Report [id number] #1.00CD:127 [facility] BUNon 04-05-2021 Urea nitrogen [Mass/Vol] 15.0 mg/dL Normal 7.0-17.0 [facility] Comment on above: Performed By: #### C QUINTON PAN #### [facility] [address] [place] [address] Dr. Lukas Foote CBC AUTO DIFFon 04-05-2021 BASO # 0.0 103/ul Normal 0.0-0.1 [facility] Comment on above: Performed By: #### C VDTBH #### [facility] [address] [place] [address] Dr. Lukas Foote Basophils/100 WBC (Bld) 0.2 % Normal 0.2-2.0 [facility] Comment on above: Performed By: #### C VDTBH #### [facility] [address] [place] [address] Dr. Lukas Foote EO # 0.0 103/ul Normal 0.0-0.7 [facility] Comment on above: Performed By: #### C VDTBH #### [facility] [address] [place] [address] Dr. Lukas Foote Eosinophils/100 WBC (Bld) 0.1 % Critically low 0.9-7.0 [facility] Comment on above: Performed By: #### C VDTBH #### [facility] [address] [place] [address] Dr. Lukas Foote Erythrocyte distribution width (RBC) [Ratio] 12.8 % Normal 11.0-15.0 [facility] Comment on above: Performed By: #### C VDTBH #### [facility] [address] [place] [address] Dr. Lukas Foote Hematocrit (Bld) [Volume fraction] 36.6 % Normal 36.0-48.0 [facility] Comment on above: Performed By: #### C VDTBH #### [facility] [address] [place] [address] Dr. Lukas Foote Hemoglobin (Bld) [Mass/Vol] 12.0 g/dL Normal 12.0-16.0 [facility] Comment on above: Performed By: #### C VDTBH #### [facility] [address] [place] [address] Dr. Lukas Foote IG # 0.04 10e3/ul Critically high 0.00-0.[address] [facility] Comment on above: Performed By: #### C VDTBH #### [facility] [address] [address] [address] Lukas Foote IG % 0.3 % Normal 0.0-0.5 [facility] Comment on above: Performed By: #### C VDTBH #### [facility] [address] [address] [address] Lukas Foote LYMPH # 2.2 103/ul Normal 1.2-3.8 [facility] Comment on above: Performed By: #### C VDTBH #### [facility] [address] [address] [address] Lukas Foote Lymphocytes/100 WBC (Bld) 18.0 % Critically low 20.5-60.0 [facility] Comment on above: Performed By: #### C VDTBH #### [facility] [address] [address] [address] Lukas Foote MANUAL DIFF REQ NO Normal [facility] Comment on above: Performed By: #### C VDTBH #### [facility] [address] [address] [address] Lukas Foote MCH (RBC) [Entitic mass] 29.9 pg Normal 26.7-34.0 [facility] Comment on above: Performed By: #### C VDTBH #### [facility] [address] [address] [address] Lukas Foote MCHC (RBC) [Mass/Vol] 32.8 g/dL Normal 29.9-35.2 [facility] Comment on above: Performed By: #### C VDTBH #### [facility] [address] [address] [address] Lukas Foote MCV (RBC) [Entitic vol] 91.0 fL Normal 81.0-99.0 [facility] Comment on above: Performed By: #### C VDTBH #### [facility] [address] [address] [address] Lukas Foote MONO # 1.0 103/ul Critically high 0.3-0.8 [facility] Comment on above: Performed By: #### C VDTBH #### [facility] [address] [place] [address] Dr. Lukas Foote Monocytes/100 WBC (Bld) 7.9 % Normal 1.7-12.0 [facility] Comment on above: Performed By: #### C VDTBH #### [facility] [address] [place] [address] Dr. Lukas Foote NEUT # 9.0 103/ul Critically high 1.4-6.5 [facility] Comment on above: Performed By: #### C VDTBH #### [facility] [address] [place] [address] Dr. Lukas Foote Neutrophils/100 WBC (Bld) 73.5 % Normal 43.0-75.0 [facility] Comment on above: Performed By: #### C VDTBH #### [facility] [address] [place] [address] Dr. Lukas Foote Platelet mean volume (Bld) [Entitic vol] 11.0 fL Normal 9.5-13.5 [facility] Comment on above: Performed By: #### C VDTBH #### [facility] [address] [place] [address] Dr. Lukas Foote PLT 260 103/ul Normal 150-450 [facility] Comment on above: Performed By: #### C VDTBH #### [facility] [address] [place] [address] Dr. Lukas Foote RBC 4.02 106/ul Critically low 4.20-5.40 [facility] Comment on above: Performed By: #### C VDTBH #### [facility] [address] [place] [address] Dr. Lukas Foote WBC 12.3 103/ul Critically high 4.0-11.[address] [facility] Comment on above: Performed By: #### C VDTBH #### [facility] [address] [place] [address] Dr. Lukas Foote CREATININEon 04-05-2021 Creatinine [Mass/Vol] 1.35 mg/dL Critically high 0.52-1.04 [facility] Comment on above: Performed By: #### C VIVIANE, BUN #### [facility] [address] [address] [address] Lukas Foote EGFR-AF MEXICAN 55 mL/min/1.73m2 Critically low >=60 [facility] Comment on above: Performed By: #### C VIVIANE, BUN #### [facility] [address] [address] [address] Lukas Foote EGFR-NON AF MEXICAN 45 mL/min/1.73m2 Critically low >=60 [facility] Comment on above: Performed By: #### C VIVIANE, BUN #### [facility] [address] [address] [address] Lukas Foote Facesheeton 04-04-2021 Facesheet [id number] #1.00CD:127 Normal [facility] Insurance Correspondence Off iceon 04-04-2021 Insurance Correspondence Office [id number] 0#1.00CD:127 Normal [facility] Cov[facility]-19 [facility] ([facility]on SARS-CoV-2 (COVID-19) RNA JAYNA+probe Ql (Unsp spec) Not detected Normal NOT DETECTED [facility] Comment on above: Result Comment: This test is not yet approved or cleared by the [place] FDA. When there are no FDA-approved or cleared tests available, and other criteria are met, FDA can make tests available under an emergency access mechanism called an Emergency Use Authorization (EUA). The EUA for this test is supported by the [employer] Business [employer] Officer of Health and Human Service's (HHS's) declaration [...] SARS-CoV-2. Performed By: #### C VDTBH #### [facility] [address] [id number] Lukas Foote TYPE AND SCREENon 03-31-2021 TYPE AND SCREEN Negative Normal [facility] Comment on above: Performed By: #### C VDTBH #### [facility] [id number] Lukas Foote Auth for Release of Medical Recordson 02-14-2021 Auth for Release of Medical Records [id number] #1.00CD:127 Normal [facility] Vital Signs Date Time Vital Sign Value Performing Clinician Facility 09-02-2024 13:50-0400 Body mass index (BMI) [Ratio] 33.15 kg/m2 [facility] Work Phone: [facility] 09-02-2024 13:50-0400 Body weight 87.6 kg [facility] Work Phone: [facility] 09-02-2024 13:50-0400 Diastolic blood pressure 80 mm[Hg] [employer] Work Phone: [facility] 09-02-2024 13:50-0400 Systolic blood pressure 118 mm[Hg] [employer] Work Phone: [facility] 05-06-2024 13:28-0500 Body height 162.6 cm Lonny Mcgraw MD Work Phone: [facility] 05-06-2024 13:28-0500 Body mass index (BMI) [Ratio] 34.16 kg/m2 Lonny Mcgraw MD Work Phone: [facility] 05-06-2024 13:28-0500 Body temperature 97.5 [degF] Lonny Mcgraw MD Work Phone: [facility] 05-06-2024 13:28-0500 Body weight 90.27 kg Lonny Mcgraw MD Work Phone: [facility] 05-06-2024 13:28-0500 Diastolic blood pressure 70 mm[Hg] Lonny Mcgraw MD Work Phone: [facility] 05-06-2024 13:28-0500 Heart rate 88 /min Lonny Mcgraw MD Work Phone: [facility] 05-06-2024 13:28-0500 Respiratory rate 18 /min Lonny Mcgraw MD Work Phone: [facility] 05-06-2024 13:28-0500 SaO2% (BldA) [Mass fraction] 98 % Lonny Mcgraw MD Work Phone: [facility] 05-06-2024 13:28-0500 Systolic blood pressure 120 mm[Hg] Lonny Mcgraw MD Work Phone: [facility] 02-04-2024 14:13-0500 Body height 162.6 cm Lonny Mcgraw MD Work Phone: [facility] 02-04-2024 14:13-0500 Body mass index (BMI) [Ratio] 34.33 kg/m2 Lonny Mcgraw MD Work Phone: [facility] 02-04-2024 14:13-0500 Body temperature 97.11 [degF] Lonny Mcgraw MD Work Phone: [facility] 02-04-2024 14:13-0500 Body weight 90.72 kg Lonny Mcgraw MD Work Phone: [facility] 02-04-2024 14:13-0500 Diastolic blood pressure 86 mm[Hg] Lonny Mcgraw MD Work Phone: [facility] 02-04-2024 14:13-0500 Heart rate 104 /min Lonny Mcgraw MD Work Phone: [facility] 02-04-2024 14:13-0500 Respiratory rate 22 /min Lonny Mcgraw MD Work Phone: [facility] 02-04-2024 14:13-0500 SaO2% (BldA) [Mass fraction] 98 % Lonny Mcgraw MD Work Phone: [facility] 02-04-2024 14:13-0500 Systolic blood pressure 130 mm[Hg] Lonny Mcgraw MD Work Phone: [facility] 01-03-2024 11:32-0400 Body height 162.6 cm Lonny Mcgraw MD Work Phone: [facility] 01-03-2024 11:32-0400 Body mass index (BMI) [Ratio] 34.5 kg/m2 Lonny Mcgraw MD Work Phone: [facility] 01-03-2024 11:32-0400 Body temperature 97.11 [degF] Lonny Mcgraw MD Work Phone: [facility] 01-03-2024 11:32-0400 Body weight 91.17 kg Lonny Mcgraw MD Work Phone: [facility] 01-03-2024 11:32-0400 Diastolic blood pressure 76 mm[Hg] Lonny Mcgraw MD Work Phone: [facility] 01-03-2024 11:32-0400 Heart rate 105 /min Lonny Mcgraw MD Work Phone: [facility] 01-03-2024 11:32-0400 Respiratory rate 22 /min Lonny Mcgraw MD Work Phone: [facility] 01-03-2024 11:32-0400 SaO2% (BldA) [Mass fraction] 99 % Lonny Mcgraw MD Work Phone: [facility] 01-03-2024 11:32-0400 Systolic blood pressure 138 mm[Hg] Lonny Mcgraw MD Work Phone: [facility] 12-27-2023 07:36-0400 Body temperature 97.9 [degF] [facility] 12-27-2023 07:36-0400 Diastolic blood pressure 79 mm[Hg] Jordon Willson MD [facility] [employer] 12-27-2023 07:36-0400 Heart rate 71 /min Jordon Willson MD [facility] [email or web address] 12-27-2023 07:36-0400 SaO2% (BldA) [Mass fraction] 99 % Jordon Willson MD [facility] [employer] 12-27-2023 07:36-0400 Systolic blood pressure 123 mm[Hg] Jordon Willson MD [facility] [employer] 12-26-2023 20:45-0400 Respiratory rate 18 /min Jordon Willson MD [facility] [employer] 12-26-2023 09:15-0400 Body height 162.6 cm Jordon Willson MD [facility] [email or web address] 12-26-2023 09:15-0400 Body mass index (BMI) [Ratio] 29.54 kg/m2 Jordon Willson MD [facility] [employer] 12-26-2023 09:15-0400 Body weight 78.06 kg Jordon Willson MD [facility] [email or web address] 12-25-2023 23:11-0400 Body temperature 37.0 Jordon Willson MD [facility] [employer] Encounters Encounter Date Encounter Type Care Provider Facility Start: 09-02-2024 End: 09-02-2024 Bamboo flowsheet Grayson Camille DO Work Phone: [facility] Start: 09-02-2024 End: 09-02-2024 Bamboo flowsheet Grayson Camille DO Work Phone: [facility] Start: 09-02-2024 End: 09-02-2024 Office outpatient visit 15 minutes Grayson Camille DO Work Phone: [facility] Comment on above: Estrogen deficiency; Hot flashes; Hormone disorder Start: 09-02-2024 End: 09-02-2024 ambulatory GRAYSON CAMILLE Not Available Start: 07-05-2024 End: 07-07-2024 Refill Lonny Mcgraw MD Work Phone: [facility] Comment on above: ADD (attention defic it disorder) without hyperactivity Start: 06-01-2024 End: 06-02-2024 Refill Lonny Mcgraw MD Work Phone: [facility] Comment on above: ADD (attention defic it disorder) without hyperactivity Start: 05-06-2024 End: 05-06-2024 Bamboo flowsheet Lonny Mcgraw MD Work Phone: [facility] Start: 05-06-2024 End: 05-06-2024 Bamboo flowsheet Lonny Mcgraw MD Work Phone: [facility] Start: 05-06-2024 End: 05-06-2024 Office outpatient visit 25 minutes Lonny Mcgraw MD Work Phone: [facility] Comment on above: ADD (attention defic it disorder) without hyperactivity (Primary Dx); Viral gastroenteritis; MDD (major depressive disorder), recurrent episode, mild (HCC) (CMS/HCC) Start: 05-06-2024 End: 05-06-2024 ambulatory LONNY MCGRAW Not Available Start: 04-14-2024 End: 04-15-2024 Refill Lonny Mcgraw MD Work Phone: [facility] Comment on above: ADD (attention defic it disorder) without hyperactivity Start: 03-10-2024 End: 03-11-2024 Refill Lonny Mcgraw MD Work Phone: [facility] Comment on above: ADD (attention defic it disorder) without hyperactivity Start: 03-09-2024 End: 03-09-2024 Emergency department patient visit Jorge Bob Facility:[facility] Start: 02-04-2024 End: 02-04-2024 Office outpatient visit 15 minutes Lonny Mcgraw MD Work Phone: [facility] Comment on above: ADD (attention defic it disorder) without hyperactivity (Primary Dx); MDD (major depressive disorder), recurrent episode, mild (HCC) (CMS/HCC) Start: 02-04-2024 End: 02-04-2024 ambulatory LONNY MCGRAW Not Available Start: 02-04-2024 End: 02-04-2024 Bamboo flowsheet Lonny Mcgraw MD Work Phone: [facility] Start: 02-04-2024 End: 02-04-2024 Bamboo flowsheet Lonny Mcgraw MD Work Phone: [facility] Start: 01-03-2024 End: 01-03-2024 Bamboo flowsheet Lonny Mcgraw MD Work Phone: [facility] Start: 01-03-2024 End: 01-03-2024 Bamboo flowsheet Lonny Mcgraw MD Work Phone: [facility] Start: 01-03-2024 End: 01-03-2024 Transitional care manage srvc 14 day discharge Lonny Mcgraw MD Work Phone: [facility] Comment on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 at 0130, Until Discontinued, Nausea, Vomiting, Administer if oral route cannot be used. Care Teams (unrecognized sec tion and content) Timber Killer Relationship Specialty Start Date End Date Lonny Mcgraw MD [address] [place] [address] PCP - [facility] 12/25/23 Timber Killer Relationship Specialty Start Date End Date Lonny Mcgraw MD [address] [place] [address] PCP - [facility] 04/19/23 Lonny Mcgraw MD [address] [place] [address] [facility] 06/25/23 Timber Killer Relationship Specialty Start Date End Date Lonny Mcgraw MD [address] [place] [address] PCP - [facility] 04/19/23 Lonny Mcgraw MD [address] [place] [address] PCP - [facility] 06/25/23 Timber Killer Relationship Specialty Start Date End Date Lonny Mcgraw MD [address] [place] [address] PCP - [facility] 04/19/23 Lonny Mcgraw MD [address] [place] [address] [facility] 06/25/23 Timber Killer Relationship Specialty Start Date End Date Lonny Mcgraw MD [address] [place] [address] [facility] 04/19/23 Lonny Mcgraw MD [address] [place] [address] [facility] 06/25/23 Timber Killer Relationship Specialty Start Date End Date Lonny Mcgraw MD [address] [place] [address] [facility] 04/19/23 Lonny Mcgraw MD [address] [place] [address] [facility] 06/25/23 Timber Killer Relationship Specialty Start Date End Date Lonny Mcgraw MD [address] [place] [address] [facility] 04/19/23 Lonny Mcgraw MD [address] [place] [address] [facility] 06/25/23 Timber Killer Relationship Specialty Start Date End Date Lonny Mcgraw MD [address] [place] [address] PCP - [facility] 04/19/23 Lonny Mcgraw MD [address] [place] [address] [facility] 06/25/23 Timber Killer Relationship Specialty Start Date End Date Lonny Mcgraw MD [address] [place] [address] [facility] 04/19/23 Lonny Mcgraw MD [address] [place] [address] [facility] 06/25/23 Timber Killer Relationship Specialty Start Date End Date Lonny Mcgraw MD [address] [place] [address] [facility] 04/19/23 Lonny Mcgraw MD [address] [place] [address] [facility] 06/25/23 Timber Killer Relationship Specialty Start Date End Date Lonny Mcgraw MD [address] [place] [address] [facility] 04/19/23 Lonny Mcgraw MD [address] [place] [address] [facility] 06/25/23 Timber Killer Relationship Specialty Start Date End Date Lonny Mcgraw MD [address] [place] [address] [facility] 04/19/23 Lonny Mcgraw MD [address] [place] [address] [facility] 06/25/23 Timber Killer Relationship Specialty Start Date End Date Lonny Mcgraw MD [address] [place] [address] [facility] 04/19/23 Lonny Mcgraw MD [address] [place] [address] [facility] 06/25/23 Timber Killer Relationship Specialty Start Date End Date Lonny Mcgraw MD [address] [place] [address] [facility] 04/19/23 Lonny Mcgraw MD [address] [place] [address] [facility] 06/25/23 FOR RECORDS PERTAINING TO PATIENTS WHO ARE [...] BE BASED ON THE PRIMARY CLINICAL RECORDS. [employer] [facility]. provides no warranty or guarantee of the accuracy or completeness of information in this document.
[2024-09-05 15:27] LABS: Estimated Average Glucose 97 mg/dL
[2024-09-05 15:32] LABS: Thyroid Stimulating Hormone 1.758 uIU/mL (0.358-3.740)
[2024-09-05 15:37] LABS: Free T4 0.94 ng/dL (0.76-1.46)
[2024-09-06 04:50] LABS: Progesterone 3.3 ng/mL (.); Sex Horm Binding Glob, Serum 90.1 nmol/L (24.6-122.0)
[2024-09-09 13:08] LABS: Calcitriol(1,25 di-OH Vit D) 26.1 pg/mL (24.8-81.5)
[2024-09-09 17:09] LABS: Free Testosterone(Direct) 1.4 pg/mL (0.0-4.2); Testosterone 21 ng/dL (8-60)
[2024-09-11 15:09] LABS: Estrone, Serum 463 pg/mL (27-231); Reverse T3, Serum 15.5 ng/dL (9.2-24.1)
== END 2024-09-05 14:31 | disposition home or self-care (01) ==
LOC: LAB 14:33
PROVIDERS: PCP Family Medicine; Visit Provider Obstetrics & Gynecology
DX: E34.9 Endocrine disorder, unspecified (principal)
CPT/HCPCS: 36415; 82627; 82652; 82670; 82679; 82728; 83036; 84144; 84260; 84270; 84402; 84403; 84436; 84439; 84443; 84482

== ENCOUNTER 2024-09-29 22:35 | Emergency (ER) | payer OTHER, SELFPAY ==
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
[2024-09-29 22:41] VITALS: BP 111/74; PULSE 60; TEMP 36.6; O2SAT 98; BMI 30.9
[2024-09-29 22:43] VITALS: BP 111/74; O2SAT 98
[2024-09-29 22:44] VITALS: O2SAT 97
--- NOTE | 2024-09-29 22:57 | XR_ITS ---
The [address] [address] Patient Name: BERTRAM JOHNSON MRN: [id number] date: 1990 Sex: F Assigned Patient Location: ER Current Patient Location: ER Accession/Order Number: [id number] Exam Date: 09/29/2024 23:35 Report Date: 09/29/2024 23:39 At the request of: ARNIE ALCALA DO Procedure: XR abdomen min 2V Upright spine views of the abdomen INDICATION: Obstruction COMPARISON: None FINDINGS: Visualized lung bases are clear. Surgical clips project right upper quadrant and right lower quadrant. No free air identified within the abdomen. [id number] retained stool. Generalized paucity of small bowel gas. No radiopaque calcifications overlying the renal shadows. Minimal spurring sacral joints. Minimal levocurvature of the lumbar spine. XR/XR abdomen min 2V IMPRESSION: [id number] colonic stool burden. Small bowel loops are not well-visualized and therefore not well evaluated. Please correlate with exam findings. Impression dictated by: Edd Olivera M.D. 09/29/2024 11:39 PM Dictation Location: [place] [address] Electronically authenticated by: [id number] Date: 09/29/2024 23:39
[2024-09-29 23:04] LABS: Hematocrit 39.7 % (36.0-48.0); Hemoglobin 13.6 g/dL (12.0-16.0); Immature Granulocytes Abs Auto 0.01 10^3/uL (0.00-0.03); Immature Granulocytes Pct Auto 0.2 % (0.0-0.5); Lymphocytes Absolute Auto 2.2 10^3/uL (1.2-3.8); Mean Corpuscular HGB Conc 34.3 g/dL (29.9-35.2); Mean Corpuscular Hemoglobin 30.6 pg (26.7-34.0); Mean Corpuscular Volume 89.2 fL (81.0-99.0); Platelet Count 224 10^3/uL (150-450); Red Blood Count 4.45 10^6/uL (4.20-5.40); White Blood Count 6.2 10^3/uL (4.0-11.0)
[2024-09-29] MEDS: 0.9 % SODIUM CHLORIDE 1,000 ML 100 ML IV (23:07)
[2024-09-29] MEDS: KETOROLAC TROMETHAMINE 30 MG/ML VIAL 15 MG IVP (23:08)
--- NOTE | 2024-09-29 23:08 | ED.ABDPAIN1 ---
HPI - Abdominal Pain General Chief Complaint: Abdominal Pain Stated Complaint: PAIN FROM ABDOMIN TO BACK Time Seen by Provider: 09/29/24 22:45 Source: patient Mode of arrival: walk-in Limitations: no limitations History of Present Illness HPI narrative: The patient is a 34-year-old female with a history of a cholecystectomy, appendectomy, and total hysterectomy who presents to the emergency department with right sided abdominal pain. The pain is an 8 out of 10. It is worse to palpate. Relieved by nothing. It is been going on since yesterday. Unknown what makes it worse. Nothing makes it better. She is nauseous and vomited twice prior to arrival that was nonbloody and nonbilious. Patient's never had a history of a bowel obstruction before. Patient has no history hepatitis. Patient has never done IV drugs. Patient has no history of GERD or reflux. Patient has never had a history of pancreatitis and she does not regularly consume alcohol. No fever or chills. No sick contacts or recent travel. No diarrhea or constipation. No black, bloody, tarry stools. No dysuria, hematuria, urgency or frequency. Related Data Home Medications ?Medication ?Instructions ?Recorded ?Confirmed albuterol sulfate 90 mcg/actuation 2 inh inhalation Q4H PRN shortness 08/18/24 08/18/24 aerosol inhaler of breath or wheezing txarcqbdcp-vmymbgzwricwz-ocwjeehj 1 tab PO Q4H PRN headache 08/18/24 08/18/24 50 mg-325 mg-40 mg tablet clonazepam 1 mg tablet 1.5 mg PO DAILY 08/18/24 09/29/24 dextroamphetamine-amphetamine 20 20 mg PO BID 08/18/24 09/29/24 mg tablet estradiol 1 mg tablet 1 mg PO DAILY 08/18/24 09/29/24 lamotrigine 200 mg tablet 200 mg PO DAILY 08/18/24 09/29/24 lithium carbonate 450 mg 450 mg PO DAILY 08/18/24 09/29/24 tablet,extended release prazosin 5 mg capsule 5 mg PO DAILY 08/18/24 09/29/24 quetiapine 400 mg tablet,extended 400 mg PO DAILY 08/18/24 09/29/24 release 24 hr trazodone 100 mg tablet 100 mg PO DAILY 08/18/24 09/29/24 propranolol 80 mg capsule,24 80 mg PO Q24H 09/29/24 09/29/24 hr,extended release Previous Rx's ?Medication ?Instructions ?Recorded dicyclomine 20 mg tablet 20 mg PO TID abdominal pain #14 09/30/24 tabs Allergies Allergy/AdvReac Type Severity Reaction Status Date / Time No Known Drug Allergies Allergy Verified 09/29/24 22:44 Review of Systems ROS Narrative 10 Systems were reviewed, and unless noted in the HPI, all other systems are reviewed, unremarkable, or noncontributory. PFSH PFSH Social History Little interest or pleasure in doing things: not at all Feeling down, depressed, or hopeless: not at all Exam Narrative Exam Narrative: Prior to examining the patient, I have washed with hospital approved and provided Antiseptic Hand Family Practice Medical Doctor and have also applied gloves.? Prior to touching the patient, I asked for consent to examine the patient.? General: Alert and oriented, well nourished, mild distress. Eye: PERRL, EOMI, normal conjunctiva. HENT: Normocephalic, normal hearing, moist oral mucosa, no scleral icterus, no sinus tenderness. Neck: Supple, non-tender, no carotid bruits, no JVD, no lymphadenopathy. Lungs: Clear to auscultation and percussion, non-labored respiration. Heart: Normal rate, regular rhythm, no murmur, gallop or edema. Abdomen: Soft, diffusely tender everywhere but worse in the right UQ. +guarding, no rebound, no peritoneal signs, non-distended, normal bowel sounds, no masses. Musculoskeletal: Normal range of motion and strength, no tenderness or swelling. Skin: Skin is warm, dry and pink, no rashes or lesions. Neurologic: Awake, alert, and oriented X3, CN II-XII intact. Psychiatric: Cooperative, appropriate mood and affect.? Following the conclusion of the examination, I have washed my hands thoroughly after removing examination gloves. Constitutional Vital Signs, click to edit/add: Last Vital Signs Temp 97.8 F 09/29/24 22:41 Pulse 60 09/29/24 22:41 Resp 16 09/29/24 22:41 BP 106/74 09/30/24 01:05 Pulse Ox 97 09/29/24 22:44 O2 Del Method Room Air 09/29/24 22:41 Course Course Hospital Course: Patient say 34-year-old female with a history of multiple surgeries including gallbladder, appendix, and complete hysterectomy. She presenting today with right upper quadrant pain. She is not having any pulmonary disease type pattern. She does not have any cough, cold, flulike symptoms. No trauma to the right side of her chest. Denies any history of hepatitis. Patient is going to be given Zofran 4 mg IV push and Toradol 15 mg IV push. Will continue to monitor the patient's symptoms. Vital Signs Vital signs: Vital Signs Temperature 97.8 F 09/29/24 22:41 Pulse Rate 60 09/29/24 22:41 Respiratory Rate 16 09/29/24 22:41 Blood Pressure 111/74 09/29/24 22:41 Pulse Oximetry 98 09/29/24 22:41 Oxygen Delivery Method Room Air 09/29/24 22:41 Temperature 97.8 F 09/29/24 22:41 Pulse Rate 60 09/29/24 22:41 Respiratory Rate 16 09/29/24 22:41 Blood Pressure 106/74 09/30/24 01:05 Pulse Oximetry 97 09/29/24 22:44 Oxygen Delivery Method Room Air 09/29/24 22:41 MDM - Abdominal Pain MDM Narrative Medical decision making narrative: Patient is a 34-year-old female with a history of multiple abdominal surgeries presenting to the emergency department today complaining of intractable abdominal pain. 23:47 Patient had unremarkable blood work. Patient had unremarkable x-rays. But patient wanted to definitively know why she was having so much pain despite having negative studies. I explained to the patient that her x-ray showed increased fecal load but no evidence of obstruction and her laboratory work was reassuring but the patient does not feel satisfied with this result and would like a CAT scan. She is aware of the inherent risk of radiation exposure. 02:50 CT returns with reassuring results. Pt notified and still having pain. Will dc with michelle. Differential Diagnosis Differential diagnosis: Likely abdominal pain, calculus of kidney, constipation, diverticulitis, gastroenteritis, pancreatitis and small bowel obstruction Medical Records Attestation: I reviewed the patient's medical records. Lab Data Attestation: I reviewed the patient's lab results. Labs: Lab Results 09/29/24 09/30/24 Range/Units 22:49 02:39 WBC 6.2 (4.0-11.0) 10^3/uL RBC 4.45 (4.20-5.40) 10^6/uL Hgb 13.6 (12.0-16.0) g/dL Hct 39.7 (36.0-48.0) % MCV 89.2 (81.0-99.0) fL MCH 30.6 (26.7-34.0) pg MCHC 34.3 (29.9-35.2) g/dL RDW 12.3 (11.0-15.0) % Plt Count 224 (150-450) 10^3/uL MPV 12.3 (9.5-13.5) fL Neut % (Auto) 55.4 (43.0-75.0) % Lymph % (Auto) 35.0 (20.5-60.0) % Garrett % (Auto) 7.4 (1.7-12.0) % Eos % (Auto) 1.5 (0.9-7.0) % Baso % (Auto) 0.5 (0.2-2.0) % Neut # (Auto) 3.4 (1.4-6.5) 10^3/uL Lymph # (Auto) 2.2 (1.2-3.8) 10^3/uL Garrett # (Auto) 0.5 (0.3-0.8) 10^3/uL Eos # (Auto) 0.1 (0.0-0.7) 10^3/uL Baso # (Auto) 0.0 (0.0-0.1) 10^3/uL Abs Immat Gran (auto) 0.01 (0.00-0.03) 10^3/uL Imm/Tot Granulo (auto) 0.2 (0.0-0.5) % Sodium 140 (136-145) mmol/L Potassium 4.1 (3.5-5.1) mmol/L Chloride 103 (98-107) mmol/L Carbon Dioxide 26.9 (21.0-32.0) mmol/L Anion Gap 14.2 BUN 13.0 (7.0-18.0) mg/dL Creatinine 0.99 (0.55-1.02) mg/dL Est GFR ( Amer) >60 (>=60 mL/min/1.73m^2) Est GFR (Non-Af Amer) >60 (>=60 mL/min/1.73m^2) BUN/Creatinine Ratio 13.1 Glucose 118 H (74-106) mg/dL Lactate 2.0 (0.4-2.0) mmol/L Calcium 8.9 (8.5-10.1) mg/dL Total Bilirubin 0.3 (0.2-1.0) mg/dL AST 19 (15-37) U/L ALT 37 (14-59) U/L Alkaline Phosphatase 112 (46-116) U/L Total Protein 7.0 (6.4-8.2) g/dL Albumin 3.4 (3.4-5.0) g/dL Globulin 3.6 g/dL Albumin/Globulin Ratio 0.9 Lipase 42.0 (16.0-77.0) U/L Urine Color Yellow (YELLOW) Urine Clarity Clear (CLEAR) Urine pH 6.0 (5.0-9.0) Ur Specific Sibley 1.010 (1.005-1.025) Urine Protein Negative (NEG/TRACE) mg/dL Urine Glucose (UA) Negative (NEGATIVE) mg/dL Urine Ketones Negative (NEGATIVE) mg/dL Urine Occult Blood Negative (NEGATIVE) Urine Nitrite Negative (NEGATIVE) Urine Bilirubin Negative (NEGATIVE) Urine Urobilinogen 0.2 (0.2-1.0) EU/dL Ur Leukocyte Esterase Negative (NEGATIVE) Urine RBC None seen (0-2) #/HPF Urine WBC 0-2 A (NONE SEEN) #/HPF Ur Squamous Epith Cells Rare (NONE/RARE) #/LPF Urine Crystals None seen (None Seen) #/HPF Urine Bacteria None seen (NONE SEEN) #/HPF Urine Casts None seen (NONE SEEN) #/LPF Urine Mucus None seen (NONE SEEN) Ur Culture Indicated? No Imaging Data Abdominal x-ray: Attestation: I personally reviewed and interpreted this imaging study as follows: My impression: Abdominal x-ray shows increased fecal load but no evidence of obstruction Radiologist's impression: ITS Impressions Abdomen X-Ray 09/29/24 22:57 IMPRESSION: Gunm-sl-uvekptxs colonic stool burden. Small bowel loops are not well-visualized and therefore not well evaluated. Please correlate with exam findings. Impression dictated by: Edd Olivera M.D. 09/29/2024 11:39 PM Dictation Location: [facility] Electronically authenticated by: [id number] Y Date: 09/29/2024 23:39 CT scan - abdomen: Attestation: I have reviewed the pertinent imaging results. Radiologist's impression: ITS Impressions Abdomen X-Ray 09/29/24 22:57 IMPRESSION: Gsoz-bx-xkocllmg colonic stool burden. Small bowel loops are not well-visualized and therefore not well evaluated. Please correlate with exam findings. Impression dictated by: Edd Olivera M.D. 09/29/2024 11:39 PM Dictation Location: [facility] Electronically authenticated by: [id number] Y Date: 09/29/2024 23:39 Radiologist impression of the CT scan of the abdomen reveals no acute inflammatory process. The patient has had a prior cholecystectomy, appendectomy and hysterectomy. There is no bowel obstruction or perforation. No colitis or diverticulitis. Discharge Plan Discharge Chief Complaint: Abdominal Pain Clinical Impression: Abdominal pain Patient Disposition: Home, Self-Care Time of Disposition Decision: 02:54 Condition: Good Mode of Transportation: Private Vehicle Prescriptions / Home Meds: New dicyclomine 20 mg tablet 20 mg PO TID Qty: 14 0RF No Action albuterol sulfate 90 mcg/actuation HFA aerosol inhaler 2 inh INHALATION Q4H PRN (Reason: shortness of breath or wheezing) qtwdusmaem-tlllkekuvcplp-jvgl 50-325-40 mg tablet 1 tab PO Q4H PRN (Reason: headache) clonazepam 1 mg tablet 1.5 mg PO DAILY dextroamphetamine-amphetamine 20 mg tablet 20 mg PO BID estradiol 1 mg tablet 1 mg PO DAILY lamotrigine 200 mg tablet 200 mg PO DAILY lithium carbonate 450 mg tablet extended release 450 mg PO DAILY prazosin 5 mg capsule 5 mg PO DAILY quetiapine 400 mg tablet extended release 24 hr 400 mg PO DAILY trazodone 100 mg tablet 100 mg PO DAILY propranolol 80 mg capsule,extended release 24 hr 80 mg PO Q24H Print Language: Greenlandic Instructions: Acute Abdominal Pain (ED) Referrals: Lonny Le MD [Primary Care Provider, Family Practice] - 1 week
[2024-09-29 23:20] LABS: Alanine Aminotransferase 37 U/L (14-59); Albumin Globulin Ratio 0.9; Albumin Level 3.4 g/dL (3.4-5.0); Alkaline Phosphatase 112 U/L (46-116); Anion Gap 14.2; Aspartate Amino Transferase 19 U/L (15-37); Blood Urea Nitrogen 13.0 mg/dL (7.0-18.0); Calcium 8.9 mg/dL (8.5-10.1); Carbon Dioxide 26.9 mmol/L (21.0-32.0); Chloride 103 mmol/L (98-107); Estimated GFR (African America >60 (>=60 mL/min/1.73m^2); Estimated GFR (Non-African Ame >60 (>=60 mL/min/1.73m^2); Globulin 3.6 g/dL; Glucose 118 mg/dL (74-106); Lipase 42.0 U/L (16.0-77.0); Potassium 4.1 mmol/L (3.5-5.1); Sodium 140 mmol/L (136-145); Total Protein 7.0 g/dL (6.4-8.2)
[2024-09-29 23:22] LABS: Lactate/Lactic Acid 2.0 mmol/L (0.4-2.0)
[2024-09-30 01:05] VITALS: BP 106/74
[2024-09-30 02:43] LABS: Glucose Urine UA NEGATIVE (NEGATIVE)
[2024-09-30 02:51] LABS: Cast Seen? NONE SEEN #/LPF (NONE SEEN); Crystals Seen? None Seen #/HPF (None Seen); Urine Culture Indicated NO
[2024-09-30] MEDS: DICYCLOMINE HCL 10 MG CAPSULE 20 MG PO (03:05)
== END 2024-09-30 03:16 | disposition home or self-care (01) ==
PROVIDERS: Emergency Provider Emergency Medicine; PCP Family Medicine
DX: R10.11 Right upper quadrant pain (principal); Z90.49 Acquired absence of other specified parts of digestive tract; Z90.710 Acquired absence of both cervix and uterus
CPT/HCPCS: 36415; 74019; 74177; 80053; 81001; 83605; 83690; 85025; 96361; 96374; 96375; 99285; J1885; J2405; Q9967

== ENCOUNTER 2024-11-03 11:02 | Outpatient (OUT) | payer OTHER, SELFPAY ==
--- OUTSIDE RECORDS SUMMARY | 2024-06-11 05:15 | XMS_ITS ---
Author Organization [facility] Address [address] [facility] [address] Care Team Providers Care Post Production Assistant Name Role Phone Quincy Walden Primary Care Provider [phone] REASON FOR VISIT ATIYA SHANELL ORELLANA R/S FROM 02/18 Social History Sex Assigned At : Social History Observation Description Sex Assigned At Female Encounters Encounter Location Date Provider Diagnosis [address] [address] 2024 Quincy Walden Plan Of Treatment No Information Progress Notes * BERTRAM JOHNSON SDOB:[birth year] (34 yo F)Acc No.[id number]:06/11/2024 Behavioral Health Patient: [place] THANIA BERTRAM Saleem Provider: JEANCARLOS Hurtado :1990 A ge:34 Y S ex:Female Date:06/11/2024 Address:[address] [place], [place] [address] Subjective: * Chief Complaints: * 1 . ATIYA SHANELL ORELLANA R/S FROM 02/18. * Medical History: Objective: * Vitals: Assessment: Plan: * Treatment: * Images: * Electronic signature of JEANCARLOS Bal on 11/03/2024 at 11:07 AM EDT Sign off status: Pending * Provider: JEANCARLOS Hurtado Date: 0 06/11/2024 Generated for Sami santoyo/Haider/eTransmitting on: 0 11/03/2024 11:07 AM EDT
--- OUTSIDE RECORDS SUMMARY | 2024-07-16 05:30 | XMS_ITS ---
Author Organization [facility] Address [address] [place], [place] [address]J[place] [address] Care Team Providers Care Fire Dispatcher Name Role Phone Kelby Blackburn Unavailable [phone] REASON FOR VISIT MILL ATTENDANT Comp Exam Encounters Encounter Location Date Provider Diagnosis [facility] [address] [place], [place] [id number] 07/16/2024 Kelby Blackburn Plan Of Treatment No Information Progress Notes * Ladan LOPEZ SDOB:[birth year] (34 yo F)Acc No.[id number]:07/16/2024 Patient: [place] MONTEIRO Ladan S Provider: Bryce Blackburn DDS :1990 A ge:34 Y S ex:Female Date:07/16/2024 [address] [place] [facility] Subjective: * Chief Complaints: * 1 . MILL ATTENDANT Comp Exam. * Medical History: Objective: * Vitals: Assessment: Plan: * Treatment: * Billing Information: * Visit Code: * Procedure Codes: * Electronic signature of Tereza Blackburn DDS on 11/03/2024 at 11:06 AM EDT Sign off status: Pending * Provider: Bryce Blackburn DDS Date: 07/16/2024 Generated for Sami santoyo/Haider/Martaitting on: 11/03/2024 11:06 AM EDT
--- OUTSIDE RECORDS SUMMARY | 2024-07-16 05:30 | XMS_ITS ---
Author Organization [facility] vices Address [address] [place] [id number] Care Team Providers Care Care Assistant Name Role Phone Kelby Blackburn Unavailable [phone] Linnea Low Unavailable [phone] REASON FOR VISIT CANCEL- PARTNER Comp Exam Encounters Encounter Location Date Provider Diagnosis [facility] [address] [place], [place] [id number] 07/16/2024 Linnea Low Plan Of Treatment No Information Progress Notes * Ladan LOPEZ SDOB:[birth year] (34 yo F)Acc No.[id number]:07/16/2024 Patient: [place] Ladan MONTEIRO Harper Provider: Iftikhar Low DDS :1990 A ge:34 Y S ex:Female Date:07/16/2024 Address:[address], [address] [facility] Subjective: * Chief Complaints: * 1 . CANCEL- PARTNER Comp Exam. * Medical History: Objective: * Vitals: Assessment: Plan: * Treatment: * Billing Information: * Visit Code: * Procedure Codes: * Electronic signature of Penny Low DDS on 11/03/2024 at 11:07 AM EDT Sign off status: Pending * Provider: Iftikhar Low DDS Date: 07/16/2024 Generated for Sami santoyo/Haider/Martaitting on: 0 11/03/2024 11:07 AM EDT
--- OUTSIDE RECORDS SUMMARY | 2024-10-22 08:30 | XMS_ITS ---
Author Organization [facility] Address [address] [facility] [place] [place] [address] Care Team Providers Care Bank Manager Name Role Phone Quincy Walden Primary Care Provider [phone] REASON FOR VISIT 3 month f/u Social History Sex Assigned At : Social History Observation Description Sex Assigned At Female Encounters Encounter Location Date Provider Diagnosis [address] [address] 2024 Quincy Walden Plan Of Treatment No Information Progress Notes * BERTRAM JOHNSON SDOB:[birth year] (34 yo F)Acc No.[id number]:10/22/2024 Behavioral Health Patient: [place] MONTEIRO BERTRAM S Provider: JEANCARLOS Hurtado :1990 A ge:34 Y S ex:Female Date:10/22/2024 Address:[address] [place] [address] [address] [place], [id number] Subjective: * Chief Complaints: * 1 . 3 month f/u. * Medical History: Objective: * Vitals: Assessment: Plan: * Treatment: * Images: * Electronic signature of JEANCARLOS Bal on 11/03/2024 at 11:08 AM EDT Sign off status: Pending * Provider: JEANCARLOS Hurtado Date: 0 10/22/2024 Generated for Printi ng/Faxing/eTransmitting on: 0 11/03/2024 11:08 AM EDT
--- OUTSIDE RECORDS SUMMARY | 2024-11-03 11:06 | XMS_ITS | Encounter Summary ---
Author Organization [facility] Address [address] [place] [address] Care Team Providers Care Radiology Receptionist Name Role Phone Lonny Le MD Primary Care Provider [phone] Lonny Le MD Unavailable Reason for Visit * Reason Comments Med Refill Encounter Details Date Type Department Care Team (Late st Contact Info) Description 08/03/2023 [facility] [address] [place] [address] Lonny Le MD [address] [place] [phone] Migraine without aura, not intractable, without status migrainosus Social History Tobacco Use Types Packs/Day Years [...] How often do you attend congregation or religion serv ices? Never 04/02/2023 Do you belong [...] Recorded Patient Health Questionnaire-2 Score 3 04/19/2023 [facility] - Occupational Stress [...] place to sleep or slept in a fpc (including now)? No 04/02/2023 Comments No Sex and Gender Information Value Date Recorded Sex Assigned at Female 02/03/2024 3:00 PM EST Legal Sex Female 6:54 PM EDT Gender Identity Female 02/03/2024 3:00 PM EST Sexual Orientation Whitaker 02/03/2024 3: 00 PM EST documented as of this encounter Plan of Treatment Upcoming Encounters Date Type Department Care Team (Late st Contact Info) Description 11/27/2024 10:20 AM EDT Office Visit [facility] [address] [place] [address] [place] [address] Cady Hairston, ESDRAS [address] [facility] [place] [address] 02/16/2025 11:00 AM EST Office Visit [facility] [address] [facility] [place] [address] Grayson Obrien DO [address] [facility] [address] [place], [place] [id number] documented as of this encounter Visit Diagnoses Diagnosis Migraine without aura, not intractable, without status migrainosus documented in this encounter Additional Health Concerns Assessment Noted Time PHQ-9 Depression Total Score: 11 024 2:51 PM EST documented as of this encounter Care Teams Radiology Receptionist Relationship Specialty Start Date End Date Lonny Le MD [address] [place] [phone] PCP - General Family Medicine 04/19/23 Lonny Le MD [address] [place] [phone] PCP - [facility] 06/25/23 documented as of this encounter
--- OUTSIDE RECORDS SUMMARY | 2024-11-03 11:06 | XMS_ITS | Encounter Summary ---
Author Organization [facility] Address [address] [place] [address] Care Team Providers Care Director Of Physical Therapy Name Role Phone Lonny Le MD Primary Care Provider [phone] Lonny eL MD Unavailable Encounter Details Date Type Department Care Team (Late st Contact Info) Description 12/27/2023 Orders Only [facility] [address] [place] [address] Lonny Le MD [address] [facility] [place] [address] Social History Tobacco Use Types Packs/Day Years [...] week 04/02/2023 How often do you attend catholic or jewish serv ices? Never 04/02/2023 Do you belong to any clubs o r organizations such as catholic groups, unions, fraternal or athletic groups, or [...] 04/19/2023 [facility] - Occupational [...] place to sleep or slept in a long term (including now)? No 04/02/2023 Comments No Sex [...] 10:20 AM EDT Office Visit [facility] [address] [place] [address] [place] [address] Cady Hairston, TIGHTENER [address] [facility] [place] [phone] 02/16/2025 11:00 AM EST Office Visit [facility] [address] [facility] [address] Grayson Obrien DO [address] [facility] [address] [place], [place] [phone] documented as of this encounter Procedures Procedure Name Priority Date/Time Associated Diagnosis Comments MRI THORACIC SPINE WO CON Routine 12/26/2023 10:11 AM EDT documented in this encounter Results * MRI THORACIC SPINE WO CON (12/26/2023 10:11 AM EDT) Anatomical Region Laterality Modality Radiographic Juliette ging Lonny Le MD IMG XR PROCEDURES Final Result documented in this encounter Visit Diagnoses Not on filedocumented in this encounter Additional Health Concerns Assessment Noted Time PHQ-9 Depression Total Score: 11 024 2:51 PM EST documented as of this encounter Care Teams Director Of Physical Therapy Relationship Specialty Start Date End Date Lonny Le MD [address] [place] [address] PCP - General Family Medicine 04/19/23 Lonny Le MD [address] [place] [address] PCP - [facility] 06/25/23 documented as of this encounter
--- OUTSIDE RECORDS SUMMARY | 2024-11-03 11:06 | XMS_ITS | Encounter Summary ---
Author Organization [facility] Address [address] [place] [address] Care Team Providers Care Photoengraving Photographer Name Role Phone Lonny Le MD Primary Care Provider [phone] Lonny Le MD Unavailable Encounter Details Date Type Department Care Team (Late st Contact Info) Description 09/19/2024 Orders Only [facility] [address] [place] [address] Lonny Le MD [address] [place] [address] Migraine without aura, not intractable, without status migrainosus (Primary Dx) Social History Tobacco Use Types Packs/Day Years Used Date Smoking Tobacco: Never Smokeless Tobacco: Never [id number] Health Literacy Answer Date Recor ded [...] 05/05/2024 How often do you attend chur or rastafari services? Never 05/05/2024 Do you belong to any clubs o r organizations such as jainism groups, unions, fraternal or athletic groups, or [...] Recorded Patient Health Questionnaire-2 Score 3 04/19/2023 [facility] - [...] in a fci (including now)? No 04/02/2023 Housing Stability Vital Sign Answer Valeriy e Recorded In the last 12 months, was t here a time when you were not able to pay the mortgage or rent on time? No 05/05/2024 In the past 12 months, how m any times have you moved where you were living? 1 05/05/2024 At any time in the past 12 m [facility], were you homeless or living in a fci (including now)? No 05/05/2024 Comments No Sex [...] Description 11/27/2024 10:20 AM EDT Office Visit [facility] [address] [place] [address] Cady Hairston, WARD NURSE [address] [place] [address] 02/16/2025 11:00 AM EST Office Visit [facility] [address] [facility] [address] Grayson Obrien DO [address] [facility] [place] [address] documented as of this encounter Visit Diagnoses Diagnosis Migraine without aura, not intractable, without status migrainosus- Primary documented in this encounter Additional Health Concerns Assessment Noted Time PHQ-9 Depression Total Score: 11 024 2:51 PM EST documented as of this encounter Care Teams Photoengraving Photographer Relationship Specialty Start Date End Date Lonny Le MD [address] [place] [address] PCP - General Family Medicine 04/19/23 Lonny Le MD [address] [place] [address] PCP - [facility] 06/25/23 documented as of this encounter
--- OUTSIDE RECORDS SUMMARY | 2024-11-03 11:06 | XMS_ITS | Patient Health Record ---
Author Organization [facility] Address [address] [place], [place] [id number] Care Team Providers Care Medical Unit Secretary Name Role Phone Kelby Blackburn Unavailable [phone] Linnea Low Unavailable [phone] Reason For Referral No Information Plan Of Treatment No Information Insurance Providers Payer Name Payer Address Payer Phone Subscriber Number Group Number Insured Name Patient Relationship to Insured Coverage Start Date Coverage End Date [facility] [address] [place] [address] [id number] Ladan Lopez Self - patient is the insured 4 Medicaid CFC after [facility] [address] [place] [address] [id number] Ladan Lopez Self - patient is the insured
--- OUTSIDE RECORDS SUMMARY | 2024-11-03 11:06 | XMS_ITS | Encounter Summary ---
Author Organization [facility] Address [address] [place] [address] Care Team Providers Care Automatic Print Developer Name Role Phone Lonny Le MD Primary Care Provider [phone] Lonny Le MD Unavailable Encounter Details Date Type Department Care Team (Late st Contact Info) Description 12/26/2023 Orders Only [facility] [address] [place] [address] Lonny Le MD [address] [place] [address] Social History Tobacco Use Types Packs/Day Years [...] week 04/02/2023 How often do you attend jew or baptism serv ices? Never 04/02/2023 Do you belong to any clubs o r organizations such as jew groups, unions, fraternal or athletic groups, or [...] Recorded Patient Health Questionnaire-2 Score 3 04/19/2023 [facility] - [...] place to sleep or slept in a senior living (including now)? No 04/02/2023 Comments No Sex [...] 10:20 AM EDT Office Visit [facility] [address] [facility] [place] [address] Cady Hairston, ESDRAS [address] [facility] [place] [phone] 02/16/2025 11:00 AM EST Office Visit [facility] [address] [facility] [place] [address] Grayson Obrien DO [address] [facility] [address] [place], [place] [phone] documented as of this encounter Procedures Procedure [...] documented as of this encounter Care Teams Automatic Print Developer Relationship Specialty Start Date End Date Lonny Le MD [address] [place] [address] PCP - General Family Medicine 04/19/23 Lonny Le MD [address] [place] [address] PCP - [facility] 06/25/23 documented as of this encounter
--- OUTSIDE RECORDS SUMMARY | 2024-11-03 11:07 | XMS_ITS | Encounter Summary ---
Author Organization [facility] Address [address] [place] [address] Care Team Providers Care Electric Fan Assembler Name Role Phone Lonny Le MD Primary Care Provider [phone] Lonny Le MD Primary Care Provider [phone] Lonny Le MD Unavailable Encounter Details Date Type Department Care Team (Late st Contact Info) Description 04/18/2023 Orders Only [facility] [address] [place] [address] Lonny Le MD [address] [place] [phone] Social History Tobacco Use Types Packs/Day Years [...] week 04/02/2023 How often do you attend taoism or buddhism serv ices? Never 04/02/2023 Do you belong to any clubs o r organizations such as taoism groups, unions, fraternal or athletic groups, or [...] Recorded Patient Health Questionnaire-2 Score 3 04/19/2023 [facility] - Occupational Stress Questionnaire Answer Date Recorded [...] place to sleep or slept in a assisted (including now)? No 04/02/2023 Comments No Sex [...] usual. Not at all 04/19/2023 2:51 PM JORGE CREWS Thoughts that you would be better off or hurting yourself in some way Not at all 04/19/2023 2:51 PM JORGE CREWS Patient Health Questionnaire-9 Score 11 04/19/2023 2:51 PM EST JORGE MENDOSA documented as of this encounter Plan of Treatment Upcoming Encounters Date Type Department Care Team (Late st Contact Info) Description 11/27/2024 10:20 AM EDT Office Visit [facility] [address] [place] [phone] Cady Hairston, TRAINING AND DEVELOPMENT REP [address] [place] [phone] 02/16/2025 11:00 AM EST Office Visit [facility] [address] [place] [phone] Grayson Obrien DO [address] [place], [place] [phone] documented as of this encounter Visit Diagnoses Not on filedocumented in this encounter Care Teams Electric Fan Assembler Relationship Specialty Start Date End Date Lonny Le MD PCP - General Family Medicine 03/08/23 04/18/23 Lonny Le MD [address] [place] [address] PCP - General Family Medicine 04/19/23 Lonny Le MD [address] [place] [address] [facility] 06/25/23 documented as of this encounter
--- OUTSIDE RECORDS SUMMARY | 2024-11-03 11:07 | XMS_ITS | Clinical Summary ---
Author Organization [facility] Address [address], [address] [place] [address] Care Team Providers Care Lockstitch Hemmer Name Role Phone Lonny Le MD Primary [...] drink = 0.6 oz pur e alcohol) [facility] Utilities Answer Date Recorded In the past 12 months has e [employer], gas, oil, or water company threatened to [...] any time in the past [address] [facility], were you homeless or living in a intermediate (including now)? No 12/26/2023 Food Insecurity Answer [...] (without or with Pap) 01/18/2018 COVID-19 Vaccine (1 - 2023-2 5 season) 2023 Flu vaccine (#1) 10/24/2024 GFR test (Diabetes, CKD 3-4, OR last [...] - 145 mmol/L 12/26/2023 3:11 AM EDT [facility] Potassium 3.9 3.7 - 5.3 mmol/L 12/26/2023 3:11 AM EDT [facility] Comment:SPECIMEN SLIGHTLY HE MOLYZED, RESULTS MAY BE ADVERSELY AFFECTED. Chloride 104 98 - 107 mmol/L 12/26/2023 3:11 AM EDT [facility] CO2 23 20 - 31 mmol/L 12/26/2023 3:11 AM EDT [facility] Anion Gap 10 9 - 16 mmol/L 12/26/2023 3:11 AM EDT [facility] Glucose 99 74 - 99 mg/dL 12/26/2023 3:11 AM EDT [facility] BUN 9 6 - 20 mg/dL 12/26/2023 3:11 AM EDT [facility] Creatinine 1.0(H) 0.50 - 0.90 mg/dL 12/26/2023 3:11 AM EDT [facility] Est, Glom Filt Rate 78 >60 mL/min/1. 73m2 12/26/2023 3:11 AM EDT [facility] Comment: These results are not intended for [...] - 10.4 mg/dL 12/26/2023 3:11 AM EDT [facility] Blood BLOOD SPECIMEN / Unknown 12/26/2023 3:11 AM EDT 12/26/2023 3:19 AM EDT us Hilda Villeda MD CHEMISTRY ORDERABLES Final Resu lt [facility] [address] [place] [address], [facility] [phone] from Last 3 Months or Most Recently Relevant to Health Maintenance Insurance Member Subscriber Plan / Payer (Ef fective 2018-Present) Name:Ladan Lopez Relation to Subscriber:Self Name:Ladan Lopez Payer ID:[id number] (NAIC) Group ID:Not on file Type:Not on file Address: [address] [id number] Advance Directives * Full Code (Latest Code Status on File) Date Activated Date Inactivated Comments 12/26/2023 1:30 AM 12/27/2023 4:37 PM Care Teams Lockstitch Hemmer Relationship Specialty Start Date End Date Lonny Le MD [address] [place] [address] PCP - General Family Medicine 12/25/23
--- OUTSIDE RECORDS SUMMARY | 2024-11-03 11:07 | XMS_ITS | Encounter Summary ---
Author Organization [facility] Address [address] [place] [address] Care Team Providers Care Lumber Checker Name Role Phone Lonny Le MD Primary Care Provider [phone] Lonny Le MD Primary Care Provider [phone] Lonny Le MD Unavailable Encounter Details Date Type Department Care Team (Late Contact Info) Description 03/08/2023 Abstract [facility] [address] [place] [address] Lonny Le MD [address] [place] [address] Social History Tobacco Use Types Packs/Day Years [...] Department Care Team (Late Contact Info) Description 11/27/2024 10:20 AM EDT Office Visit [facility] [place] [facility] [address] [facility] [address] Cady Hairston, MEDICAL RECORDS ANALYST [address] [place] [address] 02/16/2025 11:00 AM EST Office Visit [facility] [address] [facility] [place] [address] Grayson Obrien DO [address] [facility] [place] [address] documented as of this encounter Visit Diagnoses Not on filedocumented in this encounter Care Teams Lumber Checker Relationship Specialty Start Date End Date Lonny Le MD PCP - General Family Medicine 03/08/23 04/18/23 Lonny Le MD [address] [place] [phone] PCP - General [facility] 04/19/23 Lonny Le MD [address] [place] [address] PCP - [facility] 06/25/23 documented as of this encounter
--- OUTSIDE RECORDS SUMMARY | 2024-11-03 11:07 | XMS_ITS | Encounter Summary ---
Author Organization [facility] Address [address] [place] [address] Care Team Providers Care Die Maker Bench Stamping Name Role Phone Lonny Le MD Primary Care Provider [phone] Lonny Le MD Primary Care Provider [phone] Lonny Le MD Unavailable Reason for Visit * Reason Onset Date Comments Med Refill 03/24/2023 Encounter Details Date Type Department Care Team (Late Contact Info) Description 03/24/2023 [facility] [address] [place] [address] Lonny Le MD [address] [place] [address] Social History Tobacco Use Types Packs/Day Years [...] 11/27/2024 10:20 AM EDT Office Visit [facility] [place] [facility] [address] [place] [address] Cady Hairston NP [address] [place] [address] 02/16/2025 11:00 AM EST Office Visit [facility] DAVEN [address] [facility] [address] Grayson Obrien, [address] [facility] [address] [facility] [address] [place], [place] [phone] documented as of this encounter Visit Diagnoses Not on filedocumented in this encounter Care Teams Die Maker Bench Stamping Relationship Specialty Start Date End Date Lonny Le MD PCP - General Family Medicine 03/08/23 04/18/23 Lonny Le MD [address] [place] [address] PCP - General [facility] 04/19/23 Lonny Le MD [address] [place] [address] PCP - [facility] 06/25/23 documented as of this encounter
--- OUTSIDE RECORDS SUMMARY | 2024-11-03 11:08 | XMS_ITS | Clinical Summary ---
Author Organization [facility] Address [id number] [place] [address] Care Team Providers Care Coupon Clerk Name Role Phone Lonny Le MD Primary Care Provider [phone] Allergies No known active allergies Medications * [...] on file Insurance [employer] Care Teams Coupon Clerk Relationship Specialty Start Date End Date Lonny Le MD PCP - General 02/03/17
--- OUTSIDE RECORDS SUMMARY | 2024-11-03 11:08 | XMS_ITS | Clinical Summary ---
Author Organization [facility] Address [address] [place] [address] Care Team Providers Care Technology Assistant Name Role Phone Lonny Le MD Primary Care Provider [phone] Lonny Le MD Unavailable Allergies No known [...] if needed for anxiety 02/13/20 23 Active butalbital-acetam inophen-caffeine 50-325-40 MG tabletIndications :Migraine without aura, not intractable, without status migrainosus Take 1 tablet by mouth 4 (four) times a day as needed for headaches 60 tablet 2 12/31/19 24 Active albuterol HFA 90 mcg/act inhalerIndication s:SOB (shortness of breath) Inhale 2 puffs every 4 (four) hours if needed for wheezing or shortness of breath 8.5 g 3 01/28/20 24 025 Active estradiol (Estrace) 1 MG tabletIndications :Hot flashes due to menopause TAKE 1 TABLET BY MOUTH EVERY MORNING 30 tablet 3 03/10/20 24 Active amphetamine-dextr oamphetamine (Adderall) 20 MG tabletIndications :ADD (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 60 tablet 09/09/19 25 Active propranolol LA (Inderal LA) 80 MG 24 hr capsuleIndication s:Migraine without aura, not intractable, without status migrainosus Take 1 capsule (80 mg) by mouth Daily Do not crush, chew, or split. 30 capsule 5 09/20/19 25 Active SUMAtriptan (Imitrex) 25 MG tabletIndications :Migraine without aura, not intractable, without status migrainosus Take 1 tablet (25 mg) by mouth 1 (one) time if needed for migraine May repeat dose once in 2 hours if no relief. Do not exceed 2 doses in 24 hours. 9 tablet 3 09/20/19 25 Active Estradiol-Progest erone (Bijuva) 0.5-100 MG capsuleIndication s:Estrogen deficiency,Hot flashes,Hormone disorder Take 0.5-100 mg by mouth Daily 90 capsule 3 10/16/19 25 025 Active Estradiol-Progest erone (Bijuva) 0.5-100 MG capsuleIndication s:Estrogen deficiency,Hot flashes,Hormone disorder Take 0.5-100 mg by mouth Daily 90 capsule 3 09/03/19 25 025 Discontinued Active Problems Problem Noted Date Diagnosed [...] 30-39.9) 10/24/2023 Anxiety 03/08/2023 MDD (major depressive disorder), recurrent episo de, mild 03/08/2023 Assessment & Plan (05/06/2024 1:58 PM [...] Encounters Date Type Department Care Team Description 10/15/2024 1:20 PM EDT Consult [facility] [address] [place] [address] [place] [address] Grayson Obrien DO Pre-op examination; Pelvic pain; Dyspareunia in female 10/14/2024 Travel 10/01/2024 Patient Outreach [facility] [address] [place] [address] Lydia Simental MA 09/19/2024 Orders Only [facility] [address] [place] [address] Lonny Le MD Migraine without aura, not intractable, without status migrainosus (Primary Dx) 09/06/2024 Refill [facility] [address] [place] [place] [address] Lonny Le MD ADD (attention deficit disorder) without hyperactivity 09/05/2024 Clinisync Result Encounter [facility] External Department Unsolicited Provider, Generic External Data 09/02/2024 1:40 PM EDT Office Visit [facility] [address] [place] [address] Grayson Obrien, Estrogen deficiency; Hot flashes; Hormone disorder 09/02/2024 Bamboo flowsheet [facility] [address] [place] [address] Grayson Obrien DO 08/30/2024 Travel 08/20/2024 Patient Outreach [facility] [address] [place] [address] Lydia Simental MA from Last 3 Months Family History Medical [...] often do you attend chur ch or anabaptism services? Never 05/05/2024 Do you belong to any clubs o r organizations such as pentecostalism groups, unions, fraternal or athletic groups, or [...] Recorded Patient Health Questionnaire-2 Score 3 [facility]20[facility] Questionnaire Answer Date [...] place to sleep or slept in a correction (including now)? No 04/02/2023 Housing Stability Vital Sign Answer Valeriy e Recorded In the last 12 months, was t here a time when you were not able to pay the mortgage or rent on time? No 05/05/2024 In the past 12 months, how m any times have you moved where you were living? 1 05/05/2024 At any time in the past 12 m [facility], were you homeless or living in a correction (including now)? No 05/05/2024 Comments No Sex and Gender Information Value Date Recorded Sex Assigned at Female 02/03/2024 3:00 PM EST Legal Sex Female 6:54 PM EDT Gender Identity Female 02/03/2024 3:00 PM EST Sexual Orientation Whitaker 02/03/2024 3: 00 PM EST Last Filed Vital Signs Vital Sign Reading Time Taken Comments Blood Pressure 100/64 10/15/2024 1:30 PM EDT Pulse 88 05/06/2024 1:28 PM EST Temperature 36.4 C (97.5 F) 05/06/2024 1:28 PM EST Respiratory Rate 18 05/06/2024 1:28 PM EST Oxygen Saturation 98% 05/06/2024 1:28 PM EST Inhaled Oxygen Concentration - - Weight 88.1 kg (194 lb 1.9 oz) 10/15/2024 1:30 P M EDT Height 162.6 cm (5' 4 ) 05/06/2024 1:28 PM EST Body Mass Index 33.32 05/06/2024 1:28 PM EST Plan of Treatment Upcoming Encounters Date Type Department Care Team (Late st Contact Info) Description 11/27/2024 10:20 AM EDT Office Visit [facility] [address] [place] [address] Cady Hairston, INFRASTRUCTURE ADMINISTRATOR [address] [place] [address] 02/16/2025 11:00 AM EST Office Visit [facility] [address] [place] [phone] Grayson Obrien DO [address] [place], [place] [phone] Health Maintenance Due Date Last Done Comments Influenza Vaccine (#1) 2024 Procedures Procedure Name Priority Date/Time Associated Diagnosis Comments [facility] TESTOSTERONE FREE/TOT EQUILIB Routine 09/05/2024 2:46 PM EDT [facility]H SEROTONIN Routine 09/05/2024 2:46 PM EDT METRO SEX BINDING HORMONE (SHBG), TESTOSTERONE, FREE AND BIOAVAILABLE Routine 09/05/2024 2:46 PM EDT CALCITRIOL(1,25 DI-OH VIT D) Routine 09/05/2024 2:46 PM EDT ALL T3 REVERSE Routine 09/05/2024 2:46 PM EDT ALL ESTRONE(E1) Routine 09/05/2024 2:46 PM EDT ALL PROGESTERONE Routine 09/05/2024 2:46 PM EDT ALL DHEA SULFATE Routine 09/05/2024 2:46 PM EDT TBH ESTRONE Routine 09/05/2024 2:46 PM EDT ALL THYROXINE (T4) FREE Routine 09/05/2024 2:46 PM EDT [facility] FERRITIN Routine 09/05/2024 2:46 PM EDT ALL THYROID STIM HORMONE Routine 09/05/2024 2:46 PM EDT ALL THYROXINE (T4) Routine 09/05/2024 2: 46 PM EDT MLR HEMOGLOBIN A1C Routine 09/05/2024 2: 46 PM EDT from Last 3 Months Results * UH SEROTONIN (09/05/2024 2:46 PM EDT) SEROTONIN, SERUM 113 31 - 207 ng/mL TBH Comment: This test was developed and its performance characteristics determined by [facility]. It has not been cleared or approved by the Food and Drug Administration. Performed at: [address] [id number] Lay Out Worker: Dennys Malcolm MD, Phone: [phone] 09/05/2024 2:46 PM EDT 09/05/2024 2:48 PM EDT Narrative [facility] - 09/22/2024 12:07 AM EDT Grayson Obrien DO CLINIS[facility] Final Result [facility] TB * (ABNORMAL) TBH ESTRONE (09/05/2024 2:46 PM EDT) ESTRONE, SERUM 463(A) 27 - 231 pg/mL TBH Comment: Range Adult (Premenopausal) 27 - 231 Menstrual Cycle (1-10 days) 19 - 149 Menstrual Cycle (11-20 days) 32 - 176 Menstrual Cycle (21-30 days) 37 - 200 Performed at: [address] [id number] Lay Out Worker: Dennys Malcolm MD, Phone: [phone] 09/05/2024 2:46 PM EDT 09/05/2024 2:48 PM EDT Narrative CLINISYNC - 09/11/2024 3:09 PM EDT us Grayson Camille DO CLINISYNC Final Result Performing Organization Address [facility] Co de Phone Number [facility] TB * CALCITRIOL(1,25 DI-OH VIT D) (09/05/2024 2:46 PM EDT) CALCITRIOL(1,25 DI-OH VIT D) 26.1 24.8 - 81.5 pg/mL TBH Comment: Performed at: [address] [id number] Lay Out Worker: Dennys Malcolm MD, Phone: [phone] 09/05/2024 2:46 PM EDT 09/05/2024 2:48 PM EDT Narrative CLINISYNC - 09/22/2024 12:07 AM EDT Grayson Obrien DO LAB BLOOD ORDERABLES Final Resul t Performing Organization Address [facility] Co de Phone Number [facility] * [facility] TESTOSTERONE FREE/TOT EQUILIB (09/05/2024 2:46 PM EDT) TESTOSTERONE 21 8 - 60 ng/dL TBH FREE TESTOSTERONE(DIRE CT) 1.4 0.0 - 4.2 pg/mL TBH Comment: Performed at: [address] [id number] Lay Out Worker: Leonel May PhD, Phone: [phone] Performed at: [address] [id number] Lay Out Worker: Dennys Malcolm MD, Phone: [phone] 09/05/2024 2:46 PM EDT 09/05/2024 2:48 PM EDT Narrative CLINISYNC - 09/22/2024 12:07 AM EDT [facility] Final Result Performing Organization Address [facility]/ZIP Co de Phone Number [facility] * MLR HEMOGLOBIN A1C (09/05/2024 2:46 PM EDT) GLYCOHEMOGLOBIN A1C 5.0 4.5 - 6.2 % [facility] Comment: ADA RECOMMENDED LIMIT 4.0 - 6.0 ADA THERAPEUTIC TARGET < 7.0 ACTION SUGGESTED > 7.0 ESTIMATED AVERAGE GLUCOSE 97 mg/dL TB 09/05/2024 2:46 PM EDT 09/05/2024 2:48 PM EDT Narrative CLINISYNC - 09/05/2024 3:28 PM EDT [facility] Final Result Performing Organization Address [facility] Co de Phone Number [facility] * METRO SEX BINDING HORMONE (SHBG), TESTOSTERONE, FREE AND BIOAVAILABLE (09/05/2024 2:46 PM EDT) Pathologist [facility] SEX HORM BINDING GLOB, SERUM 90.1 24.6 - 122.0 nmol/L TB Comment: Performed at: [facility] [id number] Lay Out Worker: Leonel May PhD, Phone: [phone] 09/05/2024 2:46 PM EDT 09/05/2024 2:48 PM EDT Narrative CLINISYNC - 09/22/2024 12:07 AM EDT [facility] Final Result Performing Organization Address City/[facility] Co de Phone Number [facility] * [facility] FERRITIN (09/05/2024 2:46 PM EDT) FERRITIN 149.0 8.0 - 252.0 ng/mL TB 09/05/2024 2:46 PM EDT 09/05/2024 2:48 PM EDT Narrative CLINISYNC - 09/05/2024 3:40 PM EDT Generic External Data Provider CLIN[facility]NC F inal Result Performing Organization Address [facility] Co de Phone Number [facility] TB * ALL THYROXINE (T4) FREE (09/05/2024 2:46 PM EDT) FREE T4 0.94 0.76 - 1.46 ng/dL TB 09/05/2024 2:46 PM EDT 09/05/2024 2:48 PM EDT Narrative CLINISYNC - 09/05/2024 3:40 PM EDT Generic External Data Provider CLINISYNC F inal Result Performing Organization Address [facility] Co de Phone Number [facility] TB * ALL THYROXINE (T4) (09/05/2024 2:46 PM EDT) T4 THYROXINE 6.70 4.80 - 13.90 ug/dL TBH 09/05/2024 2:46 PM EDT 09/05/2024 2:48 PM EDT Narrative CLINISYNC - 09/05/2024 3:34 PM EDT Grayson Camille DO CLINISYNC Final Result Performing Organization Address [facility] Co de Phone Number [facility] TB * ALL THYROID STIM HORMONE (09/05/2024 2:46 PM EDT) THYROID STIMULATING HORMONE 1.758 0.358 - 3.740 uIU/mL TBH 09/05/2024 2:46 PM EDT 09/05/2024 2:48 PM EDT Narrative CLINISYNC - 09/05/2024 3:34 PM EDT Grayson Camille DO CLINISYNC Final Result Performing Organization Address City/[facility]/ZIP Co de Phone Number [facility] * ALL T3 REVERSE (09/05/2024 2:46 PM EDT) REVERSE T3, SERUM 15.5 9.2 - 24.1 ng/dL TBH Comment: This test was developed and its performance characteristics determined by [facility]. It has not been cleared or approved by the Food and Drug Administration. Performed at: [address] [id number] Lay Out Worker: Dennys Malcolm MD, Phone: [phone] 09/05/2024 2:46 PM EDT 09/05/2024 2:48 PM EDT Narrative CLINISYNC - 09/22/2024 12:07 AM EDT Grayson Camille DO CLINISYNC Final Result Performing Organization Address [facility] Co de Phone Number [facility] * ALL PROGESTERONE (09/05/2024 2:46 PM EDT) PROGESTERONE 3.3 . ng/mL TBH Comment: Follicular phase 0.1 - 0.9 Luteal phase 1.8 - 23.9 Ovulation phase 0.1 - 12.0 First trimester 11.0 - 44.3 Second trimester 25.4 - 83.3 Third trimester 58.7 - 214.0 Postmenopausal 0.0 - 0.1 09/05/2024 2:46 PM EDT 09/05/2024 2:48 PM EDT Narrative CLINISYNC - 09/22/2024 12:07 AM EDT [facility] Camille DO CLINISYNC Final Result Performing Organization Address [facility] Co de Phone Number [facility] * ALL ESTRONE(E1) (09/05/2024 2:46 PM EDT) ESTRADIOL 200.0 . pg/mL TBH Comment: Adult Female Range Follicular phase 12.5 - 166.0 Ovulation phase 85.8 - 498.0 Luteal phase 43.8 - 211.0 Postmenopausal <6.0 - 54.7 1st trimester 215.0 - >4300.0 Nehemiah ECLIA methodology 09/05/2024 2:46 PM EDT 09/05/2024 2:48 PM EDT Narrative CLINISYNC - 09/22/2024 12:07 AM EDT Grayson Camille DO CLINISYNC Final Result [facility] TBH * ALL DHEA SULFATE (09/05/2024 2:46 PM EDT) DHEA-SULFATE 142.0 57.3 - 279.2 ug/dL TB 09/05/2024 2:46 PM EDT 09/05/2024 2:48 PM EDT Narrative CLINISYNC - 09/22/2024 12:07 AM EDT Grayson Camille DO CLINISYNC Final Result Performing Organization Address City/[facility]/ZIP Co de Phone Number [facility] from Last 3 Months Insurance [employer] Care Teams Technology Assistant Relationship Specialty Start Date End Date Lonny Le MD [address] [place] [address] PCP - General Family Medicine 04/19/23 Lonny Le MD [address] [place] [address] [facility] 06/25/23
--- OUTSIDE RECORDS SUMMARY | 2024-11-03 11:08 | XMS_ITS | Patient Health Record ---
Author Organization [facility] Address [address] [place] [address] Care Team Providers Care Library Aide Name Role Phone Quincy Walden Primary Care Provider [phone] Zulma Lerner Unavailable [phone] Tanya Watt Unavailable [phone] Allergies No Known Allergies Reason For Referral No Information Medications Medication SIG (Take, Route, Frequency, Duration) Notes Start Date End Date Status Topiramate 100 MG 1 tablet Orally BID Active lamoTRIgine 200 MG TAKE 1 TABLET BY JOHANNE TH EVERY DAY FOR 30 DAYS; Duration: 30 days Active Estrace 1 MG 1 tablet Orally Once a day Active traZODone HCl 100 MG TAKE 1/2-1 TABLET B Y MOUTH AT BEDTIME; Duration: 30 days Active Smoot Carbonate ER 450 MG TAKE 1 TABLE T BY MOUTH EVERY DAY AT BEDTIME FOR 30 DAYS; Duration: 30 Active QUEtiapine Fumarate ER 400 MG take 2 tablets Orally Once a day; Duration: 30 days Active clonazePAM 1 MG take 1 AND 1/2 table ts Orally Once a day; Duration: 30 days F41.1 07/23/2024 Active Prazosin HCl 5 MG TAKE 1 CAPSULE BY MO UTH EVERYDAY AT BEDTIME; Duration: 30 Active Social History Tobacco Use: Social [...] Problem Status W/U Status Risk Notes Problem Posttraumatic stress disorder (02283080) PTSD (post-trauma tic stress disorder) (F43.10) Active confirmed Problem Bipolar 1 disorder, depressed, mild (F31.31) Active confirmed Vital Signs Heart Rate 67 /min 07/23/2024 Oximetry 97 % 07/23/2024 Blood pressure diastolic 83 mm Hg 07/23/2024 Height 65 in 07/23/2024 Blood pressure systolic 121 mm Hg 07/23/2024 Weight 195.2 lbs 07/23/2024 BMI 32.48 kg/m2 07/23/2024 Encounters Encounter Location Date Provider Diagnosis [facility] [address] [place] [address] 11/07/2023 Zulma Lerner [facility] [address] [place] [address] 11/09/2023 Zulma Lerner Bipolar 1 disorder, depressed, mild F31.31 [address] [place] [address] 07/23/2024 Quincy Walden Bipolar 1 disorder, depressed, mild F31.31 Assessments [...] start/continuation of the treatment. Plan Of Treatment No Information Insurance Providers Payer Name Payer Address Payer Phone Subscriber Number Group Number Insured Name Patient Relationship to Insured Coverage Start Date Coverage End Date [facility] [employer] [place] [employer] [address] [place] [address] [id number] BERTRAM JOHNSON Self - patient is the insured 3 [employer] [address] [place] [address] [id number] BERTRAM JOHNSON Self - patient is the insured 3 [facility] [employer] [address] [place] [address] [id number] BERTRAM JOHNSON Self - patient is the insured 0 3 [employer] MED[employer] after [employer] [address] [place] [address] [id number] BERTRAM JOHNSON Self - patient is the insured 1 3 Medical (General) History Medical History History ICD Code bipolar Surgical History Surgery Date(Month/Year) tonsillectomy cholecystectomy appendectomy partial hysterectomy
--- NOTE | 2024-11-03 11:09 | ECG_ITS ---
[facility] Test Date: 2024-11-03 Pat Name: BERTRAM JOHNSON Department: Room: - Gender: Female [employer]: : 1990 Requested By: LIZETH MCGRAW Order Number: [id number] Reading MD: ROXY HUI M.D. Measurements Intervals [place] Rate: 51 P: -6 [place]: 175 QRS: 17 QRSD: 86 T: 8 QT: 457 QTc: 424 Interpretive Statements SINUS BRADYCARDIA [place] ECG Compared to ECG 10/22/2023 22:52:21 Sinus rhythm no longer present Electronically Signed On 11-04-2024 13:52:52 EDT by ROXY HUI M.D.
== END 2024-11-03 11:03 | disposition home or self-care (01) ==
PROVIDERS: PCP Family Medicine; Visit Provider Obstetrics & Gynecology
DX: Z01.810 Encounter for preprocedural cardiovascular examination (principal); N94.10 Unspecified dyspareunia; R10.2 Pelvic and perineal pain
CPT/HCPCS: 93005

== ENCOUNTER 2024-11-14 07:09 | Day surgery (SDC) | payer OTHER, SELFPAY ==
[2024-11-03 11:31] VITALS: BP 104/70; PULSE 58; TEMP 36.4; O2SAT 99; BMI 33.3
[2024-11-14] VITALS (11 sets, daily range): BP systolic 99–116; BP diastolic 69–82; PULSE 54–110; TEMP 35.9–36.3; O2SAT 91–100
--- OUTSIDE RECORDS SUMMARY | 2024-11-14 07:13 | XMS_ITS | CCD ---
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 170 ms [employer] Phone: Q-T Interval 472 ms [employer] Phone: QRS Duration 86 ms [employer] Phone: QTc Calculation (Bazett) 451 ms [employer] Phone: R [place] 17 degrees [employer] Phone: T [place] 23 degrees [facility] Work Phone: Ventricular Rate 55 BPM [employer] Work Phone: [employer] Work Phone: EKG 12 Leadon 12-26-2023 Sinus bradycardia with marked sinus arrhythmia Otherwise normal ECG No previous ECGs available [facility] Dejon Mackey MD - 12/26/2023 Sinus bradycardia with marked sinus arrhythmia Otherwise normal ECG No previous ECGs available [employer] MR Thoracic spine WO and W c ontrast Georgi 12-26-2023 No acute abnormality of the thoracic spine. No abnormal postcontrast enhancement. Degenerative change in the midthoracic spine without canal stenosis or foraminal narrowing. [facility] EXAMINATION: MRI OF THE THORACIC SPINE [...] is no canal stenosis or foraminal narrowing. [facility] Colin Alvarenga MD - 12/26/2023 EXAMINATION: MRI OF THE [...] spine without canal stenosis or foraminal narrowing. [facility] Radiology Study observation (narrative) [facility] MR Thoracic spine WO and W c ontrast IVOrdered By: Colin Alvarenga on 12-26-2023 [facility] Work Phone: MRI THORACIC SPINE W WO [...] Colin Alvarenga MD 12/26/23 Final result Normal [facility] Magnesiumon 12-26-2023 Magnesium [Mass/Vol] 1.9 mg/dL 1.6 - 2 .6 mg/dL [facility] Magnesium [Mass/Vol] 1.9 mg/dL Normal 1.6-2.6 [facility] Comment on above: Performed By: #### C DP, BMP, MG #### [facility] [address] [place] [address] Parachute Taper: Franklyn Mendes MD No Panel Informationon 12-25 [facility] Urinalysison 12-26-2023 Bilirubin Ql (U) Negative NEGATIVE [facility] URS [facility] Clarity (U) Clear Clear [facility] Color (U) Yellow Yellow [facility] Comment Microscopic exam not performed based on chemical results unless requested in original order. [facility] Glucose Test strip (U) [Mass/Vol] Negative NEGATIVE mg/dL [facility] Hemoglobin Auto test strip Ql (U) Negative NEGATIVE [facility] Interpretation and review of laboratory results Abnormal [facility] Ketones (U) [Mass/Vol] TRACE Abnormal NEGATIVE mg/dL [facility] Leukocyte esterase Test strip Ql (U) Negative NEGATIVE [facility] Nitrite Ql (U) Negative NEGATIVE [facility] pH (U) 8.5 [pH] High 5.0 - 8.0 [facility] Protein (U) [Mass/Vol] Negative NEGATIVE mg/dL [facility] Specific gravity (U) [Rel density] 1.033 High 1.005 - 1.030 [facility] Urobilinogen Qn (U) Normal 0.0 - 1. 0 EU/dL [facility] Urinalysis, Routineon 2023 Bilirubin, SemiQt,Ur Negative Normal NEG [facility] Comment on above: Performed By: #### U A, MARIO ####[facility] [address] [place], [place] [id number] Lab Director: Franklyn Mendes MD Blood, Urine Negative Normal NEG [facility] Comment on above: Performed By: #### U A, MARIO ####[facility] [address] [place], [place] [phone] Director: Franklyn Mendes MD Clarity (U) Clear Normal CLEAR [facility] Comment on above: Performed By: #### U A, MARIO ####[facility] [address] [place] [address] [phone] Director: Franklyn Mendes MD Color (U) Yellow Normal YEL [facility] Comment on above: Performed By: #### U A, MARIO ####[facility] [address] [place] [address] [phone] Director: Franklyn Mendes MD Comment Microscopic exam not performed based on chemical results unless requested in Normal [facility] Comment on above: Result Comment: orig inal order. Performed By: #### U A, MARIO ####[facility] [address] [place] [address] [phone] Director: Franklyn Mendes MD Glucose Ql (U) Negative Normal NEG [facility] Comment on above: Performed By: #### U A, MARIO ####[address] [phone] Director: Franklyn Mendes MD Ketones Ql (U) TRACE Abnormal NEG [facility] Comment on above: Performed By: #### U A, MARIO ####[facility] [address] [place], [place] [phone] Director: Franklyn Mendes MD Leukocyte esterase Test strip Ql (U) Negative Normal NEG [facility] Comment on above: Performed By: #### U A, MARIO ####[facility] [address] [place], [place] [phone] Director: Franklyn Mendes MD Nitrite,Ur Negative Normal NEG [facility] Comment on above: Performed By: #### U A, MARIO ####[facility] [address] [place] [address] Lab Director: Franklyn Mendes MD PH,Ur 8.5 High 5.0-8.0 [facility] Comment on above: Performed By: #### U A, MARIO ####[facility] [address] [place], [place] [address])[phone] Director: Franklyn Mendes MD Protein Ql (U) Negative Normal NEG [facility] Comment on above: Performed By: #### U A, MARIO ####[facility] [address] [place], [place] [address])[phone] Director: Franklyn Mendes MD Spec. [place],Ur 1.033 High 1.005-1.030 [facility] Comment on above: Performed By: #### U A, MARIO ####[facility] [address] [place], [place] [address])[phone] Director: Franklyn Mendes MD Urobilinogen,Ur Normal Normal 0.0-1.0 [facility] Comment on above: Performed By: #### U A, MARIO ####[facility] [address] [place], [place] [address])[phone] Director: Franklyn Mendes MD Urine Drug Screenon 12-26-19 24 Amphetamines Ql (U) Negative NEGATIVE [facility] Comment on above: Cutoff: 1000 ng/mL Barbiturates Screen Ql (U) Positive Abnormal NEGATIVE [facility] Comment on above: Cutoff: 200 ng/ml Benzodiazepines Ql (U) Negative NEGATIVE [facility] Comment on above: Cutoff: 200 ng/ml Cannabinoids Screen Ql (U) Negative NEGATIVE [facility] Comment on above: Cutoff: 50 ng/ml Cocaine Ql (U) Negative NEGATIVE [facility] Comment on above: Cutoff: 300 ng/ml fentaNYL Ql (U) Positive Abnormal NEGATIVE [facility] Comment on above: Cutoff: 5 ng/ml Interpretation and review of laboratory results Abnormal [facility] Methadone Ql (U) Negative NEGATIVE [facility] Comment on above: Cutoff: 300 ng/ml Opiates Screen Ql (U) Negative NEGATIVE [facility] Comment on above: Cutoff: 300 ng/ml oxyCODONE Ql (U) Negative NEGATIVE [facility] Comment on above: Cutoff: 100 ng/ml Phencyclidine Ql (U) Negative NEGATIVE [facility] Comment on above: Cutoff: 25 ng/ml Test Information Assay provides rapid clinical screening only. Presumptive positive results for legal purposes should be confirmed by another method. To request confirmation, please call the lab within 7 days of sample submission. [facility] CBC with Diffon 12-25-2023 Abs. Basophil 0.03 k/uL Normal 0.00-0.20 [facility] Comment on above: Performed By: #### P T, CDP, CP, LIP, TROPI #### [facility] [address] [place] [address] [place] [address] Parachute Taper: Isaiah Robertson MD Abs.Imm.Granulocyte <0.03 Normal 0.00-0.30 [facility] Comment on above: Performed By: #### P T, CDP, CP, LIP, TROPI #### [address] [place] [address] Parachute Taper: Isaiah Robertson MD Abs.Neutrophil (Seg) 4.54 k/uL Normal 1.50-8.10 [facility] Comment on above: Performed By: #### P T, CDP, CP, LIP, TROPI #### [address] [place] [address] Parachute Taper: Isaiah Robertson MD Basophils/100 WBC (Bld) 0 % Normal 0-2 [facility] Comment on above: Performed By: #### P T, CDP, CP, LIP, TROPI #### [address] [place] [address] Parachute Taper: Isaiah Robertson MD Eosinophils (Bld) [#/Vol] 0.05 10*3/uL Normal 0.00-0.44 [facility] Comment on above: Performed By: #### P T, CDP, CP, LIP, TROPI #### [address] [place] [phone] Parachute Taper: Isaiah Robertson MD Eosinophils/100 WBC (Bld) 1 % Normal 1-4 [facility] Comment on above: Performed By: #### P T, CDP, CP, LIP, TROPI #### [address] [place] [phone] Parachute Taper: Isaiah Robertson MD Erythrocyte distribution width (RBC) [Ratio] 12.2 % Normal 11.8-14.4 [facility] Comment on above: Performed By: #### P T, CDP, CP, LIP, TROPI #### [address] [place], [facility]83 Parachute Taper: Isaiah Robertson MD Hematocrit (Bld) [Volume fraction] 44.5 % Normal 36.3-47.1 [facility] Comment on above: Performed By: #### P T, CDP, CP, LIP, TROPI #### [address] [place] [address] Parachute Taper: Isaiah Robertson MD Hemoglobin (Bld) [Mass/Vol] 15.4 g/dL High 11.9-15.1 [facility] Comment on above: Performed By: #### P T, CDP, CP, LIP, TROPI #### [address] [place] [address] Parachute Taper: Isaiah Robertson MD Immature granulocytes/100 WBC (Bld) 0 % Normal 0 [facility] Comment on above: Performed By: #### P T, CDP, CP, LIP, TROPI #### [address] [place], [place] [phone] Parachute Taper: Isaiah Robertson MD Lymphocytes (Bld) [#/Vol] 2.50 10*3/uL Normal 1.10-3.70 [facility] Comment on above: Performed By: #### P T, CDP, CP, LIP, TROPI #### [address] [place], [facility]83 Parachute Taper: Isaiah Robertson MD Lymphocytes/100 WBC (Bld) 32 % Normal 24-43 [facility] Comment on above: Performed By: #### P T, CDP, CP, LIP, TROPI #### [address] [place], [facility]83 Parachute Taper: Isaiah Robertson MD MCH (RBC) [Entitic mass] 30.0 pg Normal 25.2-33.5 [facility] Comment on above: Performed By: #### P T, CDP, CP, LIP, TROPI #### [address] [place], [facility]83 Parachute Taper: Isaiah Robertson MD MCHC (RBC) [Mass/Vol] 34.6 g/dL Normal 28.4-34.8 [facility] Comment on above: Performed By: #### P T, CDP, CP, LIP, TROPI #### [address] [place], [facility]81 ( Parachute Taper: Isaiah Robertson MD MCV (RBC) [Entitic vol] 86.7 fL Normal 82.6-102.9 [facility] Comment on above: Performed By: #### P T, CDP, CP, LIP, TROPI #### [address] [place] [address] Parachute Taper: Isaiah Robertson MD Monocytes (Bld) [#/Vol] 0.59 10*3/uL Normal 0.10-1.20 [facility] Comment on above: Performed By: #### P T, CDP, CP, LIP, TROPI #### [facility] [address] [place], [place] [phone] Parachute Taper: Isaiah Robertson MD Monocytes/100 WBC (Bld) 8 % Normal 3-12 [facility] Comment on above: Performed By: #### P T, CDP, CP, LIP, TROPI #### [facility] [address] [place], [facility]83 Parachute Taper: Isaiah Robertson MD Neutrophil (Seg) 59 % Normal 36-65 [facility] Comment on above: Performed By: #### P T, CDP, CP, LIP, TROPI #### [facility] [address] [place], [facility]83 Parachute Taper: Isaiah Robertson MD NRBC Automated 0.0 per 100 WBC Normal 0.0 [facility] Comment on above: Performed By: #### P T, CDP, CP, LIP, TROPI #### [address] [place], [place] [phone] Parachute Taper: Isaiah Robertson MD Platelet mean volume (Bld) [Entitic vol] 11.8 fL Normal 8.1-13.5 [facility] Comment on above: Performed By: #### P T, CDP, CP, LIP, TROPI #### [address] [place], [facility]83 Parachute Taper: Isaiah Robertson MD Platelets (Bld) [#/Vol] 316 10*3/uL Normal 138-453 [facility] Comment on above: Performed By: #### P T, CDP, CP, LIP, TROPI #### [address] [place], [place] [phone] Parachute Taper: Isaiah Robertson MD RBC (Bld) [#/Vol] 5.13 10*6/uL High 3.95-5.11 [facility] Comment on above: Performed By: #### P T, CDP, CP, LIP, TROPI #### [facility] [address] [place] [address] Parachute Taper: Isaiah Robertson MD WBC (Bld) [#/Vol] 7.7 10*3/uL Normal 3.5-11.3 [facility] Comment on above: Performed By: #### P T, CDP, CP, LIP, TROPI #### [facility] [address] [place], [place] [phone] Parachute Taper: Isaiah Robertson MD CT CHEST ABDOMEN PELVIS [...] Fahad Cruz MD 12/25/23 Final result Normal [facility] CT Chest and Abdomen and Pel vis W contrast Georgi 12-25-2023 1. No acute traumatic injury to the chest, abdomen or pelvis. 2. Status post cholecystectomy, appendectomy and hysterectomy. [facility] EXAM[facility]ATION: CT OF THE CHEST, [...] acute bone or soft tissue abnormality evident. [facility] Fahad Cruz MD - 12/25/2023 [...] 2. Status post cholecystectomy, appendectomy and hysterectomy. [facility] CT HEAD WO CONTRASTon 2023 CT HEAD [...] COMPARISON: None. HISTORY: ORDERING SYSTEM PROVIDED HISTORY: [facility] +loc TECHNOLOGIST PROVIDED HISTORY: [facility] +loc Decision Support Exception - unselect if [...] Fahad Cruz MD 12/25/23 Final result Normal [facility] CT Head WO contraston 2023 No acute intracranial abnormality. [facility] EXAM[facility]ATION: CT OF THE HEAD WITHOUT [...] of the visualized skull or soft tissues. [facility] Fahad Cruz MD - 12/25/2023 EXAMINATION: [...] soft tissues. IMPRESSION: No acute intracranial abnormality. [facility] CT Head WO contrastOrdered B y: Fahad Cruz on 12-25-2023 [facility] Work Phone: CT LUMBAR SPINE BONY RECONST [...] Fahad Cruz MD 12/25/23 Final result Normal [facility] CT THORACIC SPINE BONY RECON STRUCTIONon 12-25-2023 [...] Fahad Cruz MD 12/25/23 Final result Normal [facility] Comp Metabolic Profon 2023 Albumin [Mass/Vol] 4.5 g/dL Normal 3.5-5.2 [facility] Comment on above: Performed By: #### P T, CDP, CP, LIP, TROPI #### [facility] [address] [place] [address] [place] [address] Parachute Taper: Isaiah Robertson MD Albumin/Glob Ratio 1.4 Normal 1.0-2.5 [facility] Comment on above: Performed By: #### P T, CDP, CP, LIP, TROPI #### [facility] [address] [place] [address] Parachute Taper: Isaiah Robertson MD Alkaline Phos 107 U/L High 35-104 [facility] Comment on above: Performed By: #### P T, CDP, CP, LIP, TROPI #### [facility] [address] [place] [address] Parachute Taper: Isaiah Robertson MD ALT [Catalytic activity/Vol] 14 U/L Normal -35 [facility] Comment on above: Performed By: #### P T, CDP, CP, LIP, TROPI #### [facility] [address] [place], [place] [phone] Parachute Taper: Isaiah Robertson MD Anion gap [Moles/Vol] 16 mmol/L Normal 9-16 [facility] Comment on above: Performed By: #### P T, CDP, CP, LIP, TROPI #### [facility] [address] [place], [place] [phone] Parachute Taper: Isaiah Robertson MD AST [Catalytic activity/Vol] 19 U/L Normal 35 [facility] Comment on above: Performed By: #### P T, CDP, CP, LIP, TROPI #### [address] [place], [place] [phone] Parachute Taper: Isaiah Robertson MD Bilirubin [Mass/Vol] 0.3 mg/dL Normal 0.00-1.20 [facility] Comment on above: Performed By: #### P T, CDP, CP, LIP, TROPI #### [address] [place], [place] [phone] Parachute Taper: Isaiah Robertson MD BUN/CRE Ratio 9 Normal -20 [facility] Comment on above: Performed By: #### P T, CDP, CP, LIP, TROPI #### [address] [place], [place] [phone] Parachute Taper: Isaiah Robertson MD Calcium [Mass/Vol] 10.2 mg/dL Normal 8.6-10.4 [facility] Comment on above: Performed By: #### P T, CDP, CP, LIP, TROPI #### [address] [place] [address] Parachute Taper: Isaiah Robertson MD Chloride [Moles/Vol] 100 mmol/L Normal 98-107 [facility] Comment on above: Performed By: #### P T, CDP, CP, LIP, TROPI #### [facility] [address] [place] [address] Parachute Taper: Isaiah Robertson MD CO2 [Moles/Vol] 21 mmol/L Normal 20-31 [facility] Comment on above: Performed By: #### P T, CDP, CP, LIP, TROPI #### [facility] [address] [place] [address] Parachute Taper: Isaiah Robertson MD Creatinine [Mass/Vol] 1.3 mg/dL High 0.50-0.90 [facility] Comment on above: Performed By: #### P T, CDP, CP, LIP, TROPI #### [facility] [address] [place] [address] Parachute Taper: Isaiah Robertson MD GFR/1.73 sq M.predicted among non-blacks MDRD (S/P/Bld) [Vol rate/Area] 58 mL/min/{1.73_m2} Low >60 [facility] Comment on above: Result Comment: These results [...] P T, CDP, CP, LIP, TROPI #### [facility] [address] [place] [address] Parachute Taper: Isaiah Robertson MD Glucose [Mass/Vol] 103 mg/dL High 74-99 [facility] Comment on above: Performed By: #### P T, CDP, CP, LIP, TROPI #### [facility] [address] [place], [place] [phone] Parachute Taper: Isaiah Robertson MD Potassium [Moles/Vol] 4.0 mmol/L Normal 3.7-5.3 [facility] Comment on above: Performed By: #### P T, CDP, CP, LIP, TROPI #### [facility] [address] [place] [address] Dr[place], [place] [phone] Parachute Taper: Isaiah Robertson MD Protein [Mass/Vol] 7.7 g/dL Normal 6.6-8.7 [facility] Comment on above: Performed By: #### P T, CDP, CP, LIP, TROPI #### [address] [place], [place] [phone] Parachute Taper: Isaiah Robertson MD Sodium [Moles/Vol] 137 mmol/L Normal 136-145 [facility] Comment on above: Performed By: #### P T, CDP, CP, LIP, TROPI #### [address] [place], [place] [phone] Parachute Taper: Isaiah Robertson MD Urea nitrogen [Mass/Vol] 12 mg/dL Normal 6-20 [facility] Comment on above: Performed By: #### P T, CDP, CP, LIP, TROPI #### [address] [place], [place] [id number] Parachute Taper: Isaiah Robertson MD Lipaseon 12-25-2023 Lipase [Catalytic activity/Vol] 32 U/L Normal 13-60 [facility] Comment on above: Performed By: #### P T, CDP, CP, LIP, TROPI #### [address] [place] [address] Parachute Taper: Isaiah Robertson MD No Panel Informationon 12-24 No acute thoracic or lumbar spine trauma. [facility] RIS CONSOLIDATED EXAMINATION: CT OF THE LUMBAR SPINE [...] SOFT TISSUES: No paraspinal mass is seen. [facility] RIS CONSOLIDATED Fahad Cruz MD - 12/25/2023 [...] No acute thoracic or lumbar spine trauma. [facility] Radiology Study observation (narrative) [facility] PTon 12-25-2023 INR Coag (PPP) [Relative time] 1.0 {INR} Normal [facility] Comment on above: Result Comment: Therapeutic Range: Moderate Anticoagulant Intensity: INR = 2.0-3.0 High Anticoagulant Intensity: INR = 2.5-3.5 Performed By: #### P T, CDP, CP, LIP, TROPI #### [facility] [address] [place], [place] [id number] Parachute Taper: Isaiah Robertson MD PT Coag (PPP) [Time] 13.3 s Normal 11.7-14.1 [facility] Comment on above: Performed By: #### P T, CDP, CP, LIP, TROPI #### [facility] [address] [place] [address] Parachute Taper: Isaiah Robertson MD TYPE AND SCREENon 12-25-2023 ABO and Rh group Nom (Bld) Blood group A Rh(D) positive [facility] Arm Band Number BE [id number] [facility] Blood Bank Sample Expiration 12/28/2023,2359 [facility] Blood group antibodies identified Nom Negative [facility] Trauma Panelon 12-25-2023 Anion gap [Moles/Vol] 12 mmol/L 9 - 16 mmol/L [facility] aPTT Coag (Bld) [Time] 27.7 s [facility] Comment on above: IV Heparin Therapy Range: 66.0-92.0 sec Blood Bank Specimen BILL FOR SERVICES PERFORMED [facility] Carboxyhemoglobin (Bld) [Mass fraction] 2.9 % 0 - 5 % [facility] Comment on above: Reference Range: Non-Smokers 0-2% Average Smoker 2-4% Heavy Smoker <10% Chloride [Moles/Vol] 104 mmol/L 98 - 10 7 mmol/L [facility] CO2 [Moles/Vol] 21 mmol/L 20 - 31 mmol/L [facility] Creatinine [Mass/Vol] 1.1 mg/dL High 0.50 - 0.90 mg/dL [facility] Erythrocyte distribution width (RBC) [Ratio] 12.1 % 11.8 - 14.4 % [facility] Est, Glom Filt Rate 65 - PINF [facility] Comment on above: These results are not [...] Ethanol percent <0.010 NINF - 0.010 % [facility] Ethanolamine [Mass/Vol] <10 NINF - 10 mg/dL [facility] Visto Glucose [Mass/Vol] 106 mg/dL High 74 - 99 mg/dL [facility] Visto HCG ( test) Ql Negative NEGATIVE [facility] Comment on above: Specimens with hCG l evels near the threshold of the test (25 mIU/mL) may give a negative or indeterminate result. In such cases, another test should be performed with a new specimen in 48-72 hours. If early is suspected clinically in this setting, correlation with quantitative serum b-hCG level is suggested. [facility] has confirmed the use of plasma for this test. This has not been cleared or approved by the U.S. Food and Drug Administration. The FDA has determined that such clearance is not necessary. HCO3 (Bld) [Moles/Vol] 20.8 mmol/L Low 24 - 30 mmol/L [facility] Hematocrit (Bld) [Volume fraction] 41.5 % 36.3 - 47.1 % [facility] Hemoglobin (Bld) [Mass/Vol] 14.2 g/dL 11.9 - 15.1 g/dL [facility] INR Coag (PPP) [Relative time] 1.0 {INR} [facility] Comment on above: Therapeutic Range: Moderate Anticoagulant Intensity: INR = 2.0-3.0 High Anticoagulant Intensity: INR = 2.5-3.5 Interpretation and review of laboratory results Abnormal [facility] MCH (RBC) [Entitic mass] 30.0 pg 25.2 - 33.5 pg [facility] Visto MCHC (RBC) [Mass/Vol] 34.2 g/dL 28.4 - 34.8 g/dL [facility] MCV (RBC) [Entitic vol] 87.6 fL 82.6 - 102.9 fL [facility] Negative Base Excess, Alfa 0.5 mmol/L 0.0 - 2.0 mmol/L [facility] Nucleated RBC/100 WBC (Bld) [Ratio] 0.0 % 0.0 per 100 WBC [facility] Oxygen saturation in Blood 85.7 % High 60.0 - 85.0 % [facility] Oxygen/Inspired gas Respiratory system --on ventilator INFORMATION NOT PROVIDED [facility] pCO2, Alfa 26.6 Low [facility] pH, Alfa 7.504 High 7.320 - 7.420 [facility] Platelet mean volume (Bld) [Entitic vol] 11.4 fL 8.1 - 13.5 fL [facility] Platelets (Bld) [#/Vol] 275 10*3/uL [facility] PO2, Alfa 45.9 [facility] Potassium [Moles/Vol] 3.7 mmol/L 3.7 - 5.3 mmol/L [facility] PT Coag (PPP) [Time] 13.4 s [facility] RBC (Bld) [#/Vol] 4.74 10*6/uL 3.95 - 5.1 1 m/uL [facility] Sodium [Moles/Vol] 137 mmol/L 136 - 145 mmol/L [facility] Urea nitrogen [Mass/Vol] 12 mg/dL 6 - 20 mg/dL [facility] WBC other (Bld) [#/Vol] 8.7 [facility] Trauma Profileon 12-25-2023 Anion gap [Moles/Vol] 12 mmol/L Normal 9-16 [facility] Comment on above: Performed By: #### E RTPF #### [facility] [address] [place] [address] Parachute Taper: Franklyn Mendes MD Chloride [Moles/Vol] 104 mmol/L Normal 98-107 [facility] [place] [facility] Comment on above: Performed By: #### E RTPF #### [address] [address] Parachute Taper: Franklyn Mendes MD CO2 [Moles/Vol] 21 mmol/L Normal 20-31 [facility] Comment on above: Performed By: #### E RTPF #### [address] [address] Parachute Taper: Franklyn Mendes MD Creatinine [Mass/Vol] 1.1 mg/dL High 0.50-0.90 [facility] Comment on above: Performed By: #### E RTPF #### [address] [address] Parachute Taper: Franklyn Mendes MD Ethanol [Mass/Vol] mg/dL Normal <10 [facility] Comment on above: Performed By: #### E RTPF #### [address] [address] Parachute Taper: Franklyn Mendes MD Ethanol percent <0.010 Normal <0.010 [facility] Comment on above: Performed By: #### E RTPF #### [address] [address] Parachute Taper: Franklyn Mendes MD GFR/1.73 sq M.predicted among non-blacks MDRD (S/P/Bld) [Vol rate/Area] 65 mL/min/{1.73_m2} Normal >60 [facility] Comment on above: Result Comment: These results [...] secretion. Performed By: #### E RTPF #### [address] [address] Parachute Taper: Franklyn Mendes MD Glucose [Mass/Vol] 106 mg/dL High 74-99 [facility] Comment on above: Performed By: #### E RTPF #### [address] [address] Parachute Taper: Franklyn Mendes MD Potassium [Moles/Vol] 3.7 mmol/L Normal 3.7-5.3 [facility] Comment on above: Performed By: #### E RTPF #### [address] [address] Parachute Taper: Franklyn Mendes MD Sodium [Moles/Vol] 137 mmol/L Normal 136-145 [facility] Comment on above: Performed By: #### E RTPF #### [address] [address] Parachute Taper: Franklyn Mendes MD Urea nitrogen [Mass/Vol] 12 mg/dL Normal 6-20 [facility] Comment on above: Performed By: #### E RTPF #### [address] [address] Parachute Taper: Franklyn Mendes MD aPTT Coag (Bld) [Time] 27.7 s Normal 23.0-36.5 [facility] Comment on above: Result Comment: IV Heparin Therapy Range: 66.0-92.0 sec Performed By: #### E RTPF #### [address] [address] Parachute Taper: Franklyn Mendes MD HCG Screen, Blood Negative Normal NEG [facility] Comment on above: Result Comment: Spec imens with hCG levels near the threshold of the test (25 mIU/mL) may give a negative or indeterminate result. In such cases, another test should be performed with a new specimen in 48-72 hours. If early is suspected clinically in this setting, correlation with quantitative serum b-hCG level is suggested. [facility] has confirmed the use of plasma for this test. This has not been cleared or approved by the U.S. Food and Drug Administration. The FDA has determined that such clearance is not necessary. Performed By: #### E RTPF #### [address] [address] Parachute Taper: Franklyn Mendes MD INR Coag (PPP) [Relative time] 1.0 {INR} Normal [facility] Comment on above: Result Comment: Therapeutic Range: Moderate Anticoagulant Intensity: INR = 2.0-3.0 High Anticoagulant Intensity: INR = 2.5-3.5 Performed By: #### E RTPF #### [address] [address] Parachute Taper: Franklyn Mendes MD PT Coag (PPP) [Time] 13.4 s Normal 11.7-14.9 [facility] [place] [facility] Comment on above: Performed By: #### E RTPF #### [address] [address] Parachute Taper: Franklyn Mendes MD Body Temp. 37.0 Normal [facility] Comment on above: Performed By: #### E RTPF #### [address] [address] Parachute Taper: Franklyn Mendes MD Carboxy Hgb 2.9 % Normal 0-5 [facility] Comment on above: Result Comment: Reference Range: Non-Smokers 0-2% Average Smoker 2-4% Heavy Smoker <10% Performed By: #### E RTPF #### [address] [address] Parachute Taper: Franklyn Mendes MD FIO2 INFORMATION NOT PROVIDED [facility] Comment on above: Performed By: #### E RTPF #### [address] [place] [address] Parachute Taper: Franklyn Mendes MD HCO3 (Bld) [Moles/Vol] 20.8 mmol/L Low 24-30 [facility] Comment on above: Performed By: #### E RTPF ####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
[2024-11-14 07:17] LABS: Hematocrit 38.7 % (36.0-48.0); Hemoglobin 12.9 g/dL (12.0-16.0); Immature Granulocytes Abs Auto 0.02 10^3/uL (0.00-0.03); Immature Granulocytes Pct Auto 0.2 % (0.0-0.5); Lymphocytes Absolute Auto 3.8 10^3/uL (1.2-3.8); Mean Corpuscular HGB Conc 33.3 g/dL (29.9-35.2); Mean Corpuscular Hemoglobin 30.4 pg (26.7-34.0); Mean Corpuscular Volume 91.1 fL (81.0-99.0); Platelet Count 261 10^3/uL (150-450); Red Blood Count 4.25 10^6/uL (4.20-5.40); White Blood Count 11.2 10^3/uL (4.0-11.0)
[2024-11-14] MEDS: HYDROMORPHONE HCL 0.5 MG/0.5 ML SYRINGE IV (10:34)
--- NOTE | 2024-11-14 11:52 | PC.NURSE ---
Up to bathroom and voids clear yellow without difficulty
--- NOTE | 2024-11-14 12:12 | PM.ONB ---
Brief Operative Note Date of procedure: 11/14/24 Pre-op diagnosis general: pelvic pain Post-op diagnosis: same as pre-op Procedure: NAME OF PROCEDURE: [diagnostic laparoscopy ] fingdings-significant pelvic adhesions to the anterior abdominal wall PROCEDURE: The patient was taken back to the Operating Room where she was placed in dorsal lithotomy position after given general anesthesia. The patient was prepped and draped in normal sterile fashion. A sponge stick was placed into the patient's vagina. Attention was turned to the patient's abdomen, where a small umbilical incision was made. The fascia was tented using Ranulfo clamps and the fascia was entered sharply. Confirmation of intraabdominal placement of the 10 mm port was confirmed under direct visualization using a laparoscope. The patient's abdomen was then insufflated using CO2 gas with approximately 4 liters. A second port was placed left laterally, this was done under direct visualization with a 5 mm port. Survey of the patient's abdomen demonstrated normal liver and gallbladder. Survey of the patient's pelvic anatomy demonstrated absent tubes, ovaries and uterus, significant bowel adhesions to the anterior abdominal wall, No endometrial implants could be noted, no evidence of any pelvic disease was seen, normal appearing pelvic cavity. All instruments were removed from the patient's abdomen. The patient's abdomen was deinsufflated of CO2 gas. The patient tolerated the procedure well. Sponge stick was removed from the patient's vagina. The patient's infraumbilical fascia was closed using #0 Vicryl on a GI needle. The patient's skin was closed laterally and infraumbilically using 4-0 Vicryl. The patient tolerated the procedure well. Sponge, lap and needle counts were correct x 2. The patient was taken to Recovery Room in stable condition. Anesthesia: COCOA Surgeon: Grayson Obrien Butcher'S Assistant: Gini Walsh Estimated blood loss (mL): 5 Pathology: none sent Condition: stable Disposition: PACU Urinary Catheter Management Urinary Catheter Management Urethral: Cath placed during this visit: no
[2024-11-14] MEDS: HYDROCODONE/ACET 5-325 MG TABLET 1 TAB PO (12:18)
== END 2024-11-14 12:30 | disposition home or self-care (01) ==
PROVIDERS: PCP Family Medicine; Visit Provider Obstetrics & Gynecology
PROC: (CPT 840; principal; 2024-11-14 08:30)
DX: R10.2 Pelvic and perineal pain (principal); N94.10 Unspecified dyspareunia; N73.6 Female pelvic peritoneal adhesions (postinfective); Z90.710 Acquired absence of both cervix and uterus; Z98.51 Tubal ligation status; Z90.722 Acquired absence of ovaries, bilateral; Z90.49 Acquired absence of other specified parts of digestive tract; J45.909 Unspecified asthma, uncomplicated; K21.9 Gastro-esophageal reflux disease without esophagitis; F41.9 Anxiety disorder, unspecified; F31.9 Bipolar disorder, unspecified
CPT/HCPCS: 49320; 36415; 85025; J1100; J1171; J1885; J2250; J2405; J2704; J3010